=== PATIENT | female | born 1940 | race Caucasian/White ===

== ENCOUNTER → 2016-07-22 | Outpatient (CLI) | payer BC ==
[~2016-07-22] MED LIST: ATOR-22 PO; CHOL100010 PO; IBAN150T PO; KETO2CRE14; LEVO75TA PO; MONT1TAB3 PO; OMEP20CA59 PO; PROP1SOL OPB; VENL75CA PO
[2016-07-24 14:18] LABS: HERPES SIMPLEX CULT SOURCE GENITAL-VULVA; HERPES SIMPLEX VIRUS CULT ISOLATED (NOT ISOLATED)
[2016-07-24 16:47] LABS: HSVTYPE2REFLEX ONLY!DON'T ORDR ISOLATED (NOT ISOLATED)
== END | disposition home or self-care (01) ==
LOC: C.LABSPEC 13:32
PROVIDERS: ATTEND Obstetrics & Gynecology
DX: N89.8 Other specified noninflammatory disorders of vagina (principal)

== ENCOUNTER → 2016-07-22 | Outpatient (CLI) | payer BC ==
--- NOTE | 2016-07-22 13:18 | DIAGNOSTIC IMAGING REPORT ---
KUB CLINICAL HISTORY: Nephrolithiasis. FINDINGS: An AP supine abdominal radiograph is compared to study dated 06/02/2016 and correlated with abdominal CT dated 05/28/2015. There is a nonobstructed abdominal bowel gas pattern. 2 nonobstructing calculi are again seen projecting over the left kidney and measure up to 8 mm. No calcifications are seen projecting over the right kidney or along the course of the ureters. Numerous phleboliths along the course of the right gonadal vein and in the pelvis are similar to previous. The Skeletal structures are osteopenic. Lumbosacral spondylosis and scoliosis is noted. IMPRESSION: 1. Nonobstructing left renal calculi are similar to previous. 2. No calcifications are seen projecting over the right kidney or along the course of the ureters. 3. Additional changes as above. Electronically signed by: Ruben Johnson M.D. 07/22/2016 1:16 PM Dictated Date/Time: 07/22/2016 1:15 PM
== END | disposition home or self-care (01) ==
LOC: C.RAD 12:30
PROVIDERS: ATTEND Urology
DX: N20.0 Calculus of kidney (principal); N89.8 Other specified noninflammatory disorders of vagina

== ENCOUNTER → 2016-10-22 | Outpatient (CLI) | payer BC ==
--- NOTE | 2016-10-22 15:37 | MAMMOGRAPHY REPORT ---
BILATERAL DIGITAL SCREENING MAMMOGRAM WITH CAD: 10/22/2016 CLINICAL HISTORY: Routine screening. Patient has no complaints. TECHNIQUE: Current study was also evaluated with a Computer Aided Detection (CAD) system. Bilatera l CC and MLO views were obtained. COMPARISON: Comparison is made to exams dated: 10/23/2015 mammogram, 10/29/2014 ultrasound, 10/29/2014 mammogram, 10/19/2014 mammogram, 10/18/2013 mammogram, and 10/11/2012 mammogram - [facility]. BREAST COMPOSITION: There are scattered areas of fibroglandular density in both breasts. FINDINGS: No suspicious masses, calcifications, or areas of architectural distortion are noted in e ither breast. There has been no significant interval change compared to prior exams. IMPRESSION: ACR BI-RADS CATEGORY 1: NEGATIVE There is no mammographic evidence of malignancy. A 1 year screening mammogram is recommended. The p atient will receive written notification of the results. Approximately 10% of breast cancers are not detected with mammography. A negative mammographic repor t should not delay biopsy if a clinically suggestive mass is present. Che Bansal M.D. ah/:10/22/2016 13:45:00 Mandrel Cleaner: Areli MANLEY(Tommie)(M), [facility] letter sent: Normal 1/2 BI-RADS Code: ACR BI-RADS Category 1: Negative
== END | disposition home or self-care (01) ==
LOC: C.MAMM 10:35
PROVIDERS: ATTEND Obstetrics & Gynecology
DX: Z12.31 Encounter for screening mammogram for malignant neoplasm of breast (principal)

== ENCOUNTER → 2016-11-04 | Outpatient (CLI) | payer BC ==
[2016-11-04 11:55] LABS: BASO % 0.9 %; BASO ABS # 0.04 K/uL (0-0.2); COMPLETE YES; EOS % 3.5 %; HEMATOCRIT 44.2 % (37-47); LYMPH % 33.6 %; LYMPH ABS # 1.53 K/uL (1.2-3.4); MEAN CORPUSCULAR HEMOGLOBIN 31.1 pg (25-34); MEAN PLATELET VOLUME 11.2 fL (7.4-10.4); PLATELET COUNT 263 K/uL (130-400); WHITE BLOOD COUNT 4.56 K/uL (4.8-10.8)
[2016-11-04 12:01] LABS: URINE APPEARANCE CLEAR (CLEAR); URINE BILIRUBIN NEG (NEG); URINE COLOR YELLOW; URINE NITRITE NEG (NEG); URINE PH 6.5 (4.5-7.5); URINE SPECIFIC GRAVITY 1.017 (1.000-1.030); UROBILINOGEN NEG (NEG)
[2016-11-04 12:02] LABS: MANUAL MICROSCOPIC REQUIRED? NO; REVIEW REQ? YES
[2016-11-04 12:24] LABS: ALT/SGPT 27 U/L (12-78); BLOOD UREA NITROGEN 27 mg/dl (7-18); BUN/CREATININE RATIO 29.8 (10-20); CARBON DIOXIDE 30 mmol/L (21-32); CHLORIDE 108 mmol/L (98-107); CHOLESTEROL 216 mg/dl (0-200); CREATININE 0.89 mg/dl (0.60-1.20); GLUCOSE 92 mg/dl (70-99); POTASSIUM 4.1 mmol/L (3.5-5.1); SODIUM 143 mmol/L (136-145); TRIGLYCERIDES 76 mg/dl (0-150); VERY LOW DENSITY LIPOPROT CALC 15 mg/dl
[2016-11-04 12:34] LABS: ALKALINE PHOSPHATASE 100 U/L (45-117); AST/SGOT 22 U/L (15-37); CALCIUM 9.6 mg/dl (8.5-10.1); CHOLESTEROL/HDL RATIO 2.7; HDL CHOLESTEROL 79 mg/dl; LDL CHOLESTEROL CALCULATED 122 mg/dl; THYROID STIMULATING HORMONE 0.443 uIu/ml (0.300-4.500)
== END | disposition home or self-care (01) ==
LOC: C.LAB1850 10:06
PROVIDERS: ATTEND Internal Medicine Pulmonary Disease
DX: F32.9 Major depressive disorder, single episode, unspecified (principal); E78.5 Hyperlipidemia, unspecified; E03.9 Hypothyroidism, unspecified; R29.898 Other symptoms and signs involving the musculoskeletal system; J45.909 Unspecified asthma, uncomplicated; R26.0 Ataxic gait

== ENCOUNTER → 2017-05-11 | Outpatient (CLI) | payer BC ==
[2017-05-11 15:06] LABS: ALT/SGPT 30 U/L (12-78); BLOOD UREA NITROGEN 18 mg/dl (7-18); BUN/CREATININE RATIO 19.6 (10-20); CALCIUM 9.7 mg/dl (8.5-10.1); CARBON DIOXIDE 29 mmol/L (21-32); CHLORIDE 106 mmol/L (98-107); CHOLESTEROL 188 mg/dl (0-200); CREATININE 0.93 mg/dl (0.60-1.20); GLUCOSE 78 mg/dl (70-99); POTASSIUM 4.2 mmol/L (3.5-5.1); SODIUM 141 mmol/L (136-145); TRIGLYCERIDES 83 mg/dl (0-150); VERY LOW DENSITY LIPOPROT CALC 17 mg/dl
[2017-05-11 15:09] LABS: ALB/GLOB RATIO 1.2 (0.9-2); ALKALINE PHOSPHATASE 106 U/L (45-117); AST/SGOT 22 U/L (15-37); CHOLESTEROL/HDL RATIO 2.4; HDL CHOLESTEROL 79 mg/dl; LDL CHOLESTEROL CALCULATED 92 mg/dl
== END | disposition home or self-care (01) ==
LOC: C.LAB1850 13:23
PROVIDERS: ATTEND Internal Medicine Pulmonary Disease
DX: M41.9 Scoliosis, unspecified (principal); F32.9 Major depressive disorder, single episode, unspecified; E78.5 Hyperlipidemia, unspecified; E03.9 Hypothyroidism, unspecified; J98.4 Other disorders of lung; K21.9 Gastro-esophageal reflux disease without esophagitis; J45.909 Unspecified asthma, uncomplicated

== ENCOUNTER → 2017-06-01 | Outpatient (CLI) | payer BC ==
--- NOTE | 2017-06-01 11:28 | DIAGNOSTIC IMAGING REPORT ---
KUB CLINICAL HISTORY: 76 years-old Female presenting with N20.0 [id number]. TECHNIQUE: Single supine view of the abdomen was obtained. COMPARISON: 07/22/2016. FINDINGS: Mild stool burden noted in the right colon. Scattered bowel gas noted in small and large bowel without evidence of obstruction. No gross pneumoperitoneum. Allowing for bowel gas and stool, left renal calculi again noted. Prominent phlebolith again seen in the right mid abdomen. Numerous pelvic phleboliths similar in distribution to prior exam. Atherosclerosis also noted. S-shaped scoliotic curvature of the thoracolumbar spine. Osteopenia may be present. Lung bases clear. IMPRESSION: 1. Left nephrolithiasis. No radiographic evidence of right nephrolithiasis or ureteral calculi. No change from the prior exam. Electronically signed by: Randy Gilmore M.D. 06/01/2017 11:27 AM Dictated Date/Time: 06/01/2017 11:24 AM
== END | disposition home or self-care (01) ==
LOC: C.RAD 10:59
PROVIDERS: ATTEND Urology
DX: N20.0 Calculus of kidney (principal)

== ENCOUNTER → 2017-10-19 | Outpatient (CLI) | payer BC ==
[2017-10-19 14:39] LABS: BASO % 0.6 %; BASO ABS # 0.04 K/uL (0-0.2); EOS % 2.4 %; EOS ABS # 0.16 K/uL (0-0.5); HEMATOCRIT 43.5 % (37-47); HEMOGLOBIN 14.8 g/dL (12.0-16.0); IG# 0.01 K/uL (0.00-0.02); LYMPH ABS # 2.09 K/uL (1.2-3.4); MEAN CELL VOLUME 92.2 fL (80-100); MEAN CORPUSCULAR HEMOGLOBIN 31.4 pg (25-34); MEAN PLATELET VOLUME 11.7 fL (7.4-10.4); MONO % 10.2 %; MONO ABS # 0.67 K/uL (0.11-0.59); NEUT % 54.6 %; NEUT ABS # 3.57 K/uL (1.4-6.5); PLATELET COUNT 252 K/uL (130-400); RED CELL DISTRIBUTION WIDTH CV 12.9 % (11.5-14.5); RED CELL DISTRIBUTION WIDTH SD 43.7 fL (36.4-46.3); WHITE BLOOD COUNT 6.54 K/uL (4.8-10.8)
[2017-10-19 15:05] LABS: ALBUMIN 3.8 gm/dl (3.4-5.0); ALT/SGPT 25 U/L (12-78); AST/SGOT 21 U/L (15-37); BLOOD UREA NITROGEN 19 mg/dl (7-18); CALCIUM 9.4 mg/dl (8.5-10.1); CARBON DIOXIDE 30 mmol/L (21-32); CHOLESTEROL 174 mg/dl (0-200); GLUCOSE 78 mg/dl (70-99); POTASSIUM 4.2 mmol/L (3.5-5.1); SODIUM 142 mmol/L (136-145)
[2017-10-19 15:15] LABS: ALKALINE PHOSPHATASE 106 U/L (45-117); LDL CHOLESTEROL CALCULATED 81 mg/dl; TOTAL PROTEIN 6.9 gm/dl (6.4-8.2)
== END | disposition home or self-care (01) ==
LOC: C.LAB1850 13:20
PROVIDERS: ATTEND Internal Medicine Pulmonary Disease
DX: M41.9 Scoliosis, unspecified (principal); E78.5 Hyperlipidemia, unspecified; E03.9 Hypothyroidism, unspecified; J98.4 Other disorders of lung; J45.909 Unspecified asthma, uncomplicated; K21.9 Gastro-esophageal reflux disease without esophagitis

== ENCOUNTER → 2017-10-28 | Outpatient (CLI) | payer BC | END | disposition home or self-care (01) | LOC: C.MAMM 13:58 | PROVIDERS: ATTEND Obstetrics & Gynecology | DX: M85.89 Other specified disorders of bone density and structure, multiple sites (principal); M81.0 Age-related osteoporosis without current pathological fracture ==

== ENCOUNTER 2019-01-15 17:11 | Inpatient (IN) ==
[2019-01-15] MEDS ORDERED: ACETAMINOPHEN 1,000 MG/100 ML VIAL IV STA (17:33)
[2019-01-15] MEDS ORDERED: SODIUM CHLORIDE 0.9% 1000ML 1,000 ML IV SCH (17:45)
--- NOTE | 2019-01-15 18:19 | XRay Report ---
SINGLE VIEW CHEST CLINICAL HISTORY: Sepsis. FINDINGS: An AP, portable, upright chest radiograph is compared to study dated 10/10/2018 and correlat ed with chest CT dated 07/08/2018. The examination is degraded by portable technique and patient rotat ion. The heart is top normal for projection noting atherosclerotic calcification of the thoracic aor ta. There is bibasilar consolidation, right greater than left. Small pleural effusions are noted. No pneumothorax is seen. The skeletal structures are osteopenic. Degenerative change and scoliosis are n oted in the thoracic spine. Spinal rods are in place. IMPRESSION: 1. There is bibasilar consolidation, right greater than left. The appearance is typical for pneumonia /aspiration pneumonitis. Clinical correlation will be required and radiographic follow-up to resoluti on is recommended. 2. Small pleural effusions. Electronically signed by: Ruben Johnson M.D. 01/15/2019 6:18 PM
[2019-01-15 18:22] LABS: Basophils # (auto) 0.01 K/uL (0-0.2); Basophils % (auto) 0.1 %; Eosinophils # (auto) 0.01 K/uL (0-0.5); Eosinophils % (auto) 0.1 %; Hemoglobin 14.1 g/dL (12.0-16.0); Immature Granulocytes # (auto) 0.05 K/uL (0.00-0.02); Immature Granulocytes % (auto) 0.4 %; Lymphocytes # (auto) 1.44 K/uL (1.2-3.4); Lymphocytes % (auto) 10.8 %; Mean Corpuscular Hgb Conc 34.4 g/dL (32-36); Mean Corpuscular Volume 91.7 fL (80-100); Mean Platelet Volume 11.5 fL (7.4-10.4); Monocytes % (auto) 12.8 %; Neutrophils # (auto) 10.08 K/uL (1.4-6.5); Neutrophils % (auto) 75.8 %; Platelet Count 183 K/uL (130-400); RDW Coefficient of Variation 13.1 % (11.5-14.5); RDW Standard Deviation 43.7 fL (36.4-46.3); Red Blood Count 4.47 M/uL (4.2-5.4); White Blood Count 13.29 K/uL (4.8-10.8)
[2019-01-15 18:34] LABS: INR 1.2 (0.9-1.1); Partial Thromboplastin Ratio 1.2; Partial Thromboplastin Time 31.6 Seconds (21.0-31.0); Prothrombin Time 11.9 Seconds (9.0-12.0)
[2019-01-15 18:39] LABS: BUN Creatinine Ratio 20.3 (10-20); Calcium 9.3 mg/dl (8.5-10.1); Creatinine Clr Calc Pharmacy 57.2 ml/min; Est GFR (African American) 72.5; Est GFR (Non-African American) 62.5; Potassium 3.7 mmol/L (3.5-5.1)
[2019-01-15 18:41] LABS: Albumin Globulin Ratio 0.8 (0.9-2); Bilirubin,Total 1.8 mg/dl (0.2-1); Globulin 3.7 gm/dl (2.5-4.0); Total Protein 6.7 gm/dl (6.4-8.2)
[2019-01-15 18:41] LABS: Appearance Urine Cloudy (Clear); Bacteria Urine Automated 3+ (Negative); Color Urine Orange; Glucose Urine UA Negative (Negative); Ketones Urine 1+ (Negative); Leukocyte Esterase Urine 2+ (Negative); Nitrite Urine Positive (Negative); Protein Urine 1+ (Negative); Specific Gravity Urine 1.025 (1.000-1.030); Urobilinogen Urine Negative (Negative); WBC Urine Automated >30 /hpf (0-5)
[2019-01-15] MEDS ORDERED: PIPERACILLIN/TAZOBACTAM 4.5 GM/120 ML BAG IV ONE (18:41)
[2019-01-15 18:51] LABS: Bilirubin Urine Negative (Negative); Ictotest Urine Negative (Negative)
[2019-01-15 19:05] LABS: Influenza A virus by PCR Neg for Influ A (Neg); Influenza B virus by PCR Neg for Influ B (Neg)
[2019-01-15 19:05] LABS: Mucus Urine Present (None Prsent)
--- NOTE | 2019-01-15 19:39 | Emergency Department Note ---
Entered by Elkin Sunshine acting as a scribe for Pasha Sepulveda History of Present Illness General Chief complaint: Flu Like Symptoms Stated complaint: [id number] NECK Time Seen by Provider: 01/15/19 17:27 Source: patient and family History of Present Illness Provider complaint: Flu like symptoms Onset (ago): day(s) 1 Location: head Pain Consistency: + constant Maximum Pain Intensity: 0 Relieved By: + none Exacerbated By: + none Associated symptoms: + confusion, + fever/chills and + other (Positive sore throat ) History is limited due to the patient's cognitive status.The patient is a 78 year old female who presents to the Emergency Room with complaints of constant flu like symptoms that started last night, per her . He states that her symptoms started with a sore throat, cough, myalgias, and he noticed she felt feverish as well. The patient does not have a thermometer at home but upon arrival her temperature was 102.2F. The reports that she has been confused and disoriented since the onset of her symptoms. Currently the patient knows where she is, but does not remember the year. The states she has no history of dementia. He also mentioned that she has been complaining of right sided neck pain also. The patient is not on any blood thinners. Home Medications Home Medications Medication Instructions Recorded Confirmed Type Systane Balance 1 drp OPB QID PRN 11/10/18 01/15/19 History amoxicillin 2,000 mg PO DIRECTED PRN 11/10/18 01/15/19 History atorvastatin 10 mg PO HS 11/10/18 01/15/19 History ketoconazole 1 applic TOPICAL Q3D PRN 11/10/18 01/15/19 History levothyroxine 75 mcg PO QAM 11/10/18 01/15/19 History montelukast [Singulair] 10 mg PO HS 11/10/18 01/15/19 History venlafaxine [Effexor XR] 75 mg PO QDL 11/10/18 01/15/19 History cholecalciferol (vitamin D3) 1,000 unit PO QDL 01/15/19 01/15/19 History [Vitamin D3] clobetasol 1 applic TOPICAL .HS/WEEKLY 01/15/19 01/15/19 History omeprazole 20 mg PO DAILYBL 01/15/19 01/15/19 History Allergies Allergy/AdvReac Type Severity Reaction Status Date / Time doxycycline Allergy Mild itchy;red Verified 01/15/19 17:39 skin estrogens, conjugated Allergy Mild RASH Verified 01/15/19 17:39 perfume Allergy Mild Sneezing Verified 01/15/19 17:39 pollen extracts Allergy Mild Sneezing Verified 01/15/19 17:39 Sulfa (Sulfonamide Allergy Mild RASH Verified 01/15/19 17:39 Antibiotics) adhesive AdvReac Mild skin Verified 01/15/19 17:39 irritation INHALERS Allergy Intermediate THRUSH IN Uncoded 01/15/19 17:39 MOUTH Past Med/Surg History Medical History Asthma NO INHALER CURRENTLY Cancer LEFT UPPER ARM (SKIN CANCER) Depression Environmental allergies GERD (gastroesophageal reflux disease) Hyperlipidemia Hypothyroidism Kidney stones Osteoarthritis Scoliosis Temporomandibular joint disorder Surgical History Fusion of spine LUMBAR History of cataract surgery LEFT/RT History of colonoscopy History of herniorrhaphy RT/LEFT INGUINAL History of tooth extraction Family History Uncle Family history of diabetes mellitus Social History Preferred Language: Yemeni Communication Ability: Effective Beliefs That Will Affect Care: None Current Living Situation: Spouse Feels Safe at Home: Yes Smoking Status: Never smoker Second Hand Exposure: No Hx Alcohol Use: Yes Alcohol type: wine Hx Substance Use: No Review of Systems Unobtainable due to cognitive status Physical Exam Vital Signs Vital Signs - 24 hr 01/15/19 17:16 01/15/19 17:21 01/15/19 17:42 Temperature 39 C H Temperature Source Oral Oral Sepsis Recent Fever Within 48 Hours Yes Sepsis New/Unexplained Change in Mental Status Yes Sepsis Action Taken by Nursing No Action Required Pulse Rate 111 H Pulse Rate [Apical] Respiratory Rate 20 Respiratory Effort / Characteristics Non-Labored Respiratory Depth Normal Blood Pressure 133/68 Blood Pressure [Right Arm] Blood Pressure Mean 89 Blood Pressure Mean [Right Arm] Blood Pressure Position Sitting Pulse Oximetry 94 94 Oxygen Delivery Method Room Air Room Air Oxygen Flow Rate 01/15/19 17:44 01/15/19 18:56 01/15/19 19:00 Temperature 37.1 C Temperature Source Oral Sepsis Recent Fever Within 48 Hours Sepsis New/Unexplained Change in Mental Status Sepsis Action Taken by Nursing Pulse Rate Pulse Rate [Apical] 102 H 83 Respiratory Rate 15 18 Respiratory Effort / Characteristics Respiratory Depth Blood Pressure Blood Pressure [Right Arm] 152/69 H 127/63 Blood Pressure Mean Blood Pressure Mean [Right Arm] 96 84 Blood Pressure Position Pulse Oximetry 95 89 L 95 Oxygen Delivery Method Room Air Nasal Cannula Oxygen Flow Rate 2.5 GENERAL: Distressed. HENT: Exam performed. Head: Normocephalic and atraumatic. Right Ear: External ear normal. No mastoid tenderness. Left Ear: External ear normal. No mastoid tenderness. Mouth/Throat: Dry mucous membranes. EYES: Conjunctivae and EOM are normal. Pupils are equal, round, and reactive to light. Right eye exhibits no discharge. Left eye exhibits no discharge. No scleral icterus. NECK: Normal range of motion. Neck supple. No JVD present. No spinous process tenderness present. No carotid bruit present. No rigidity. No tracheal deviation and normal range of motion present. No Brudzinski's sign and no Kernig's sign noted. CV: Tachycardic rate, regular rhythm, normal heart sounds and intact distal pulses. There is no peripheral edema. Palpable radial pulses bue. PULM/CHEST: Rhonchi bilaterally. Chest Wall: She exhibits no tenderness. ABD: The abdomen is soft. MUSC/SKEL: Normal range of motion. There is no peripheral edema, tenderness or deformity. LYMPH: No cervical adenopathy. NEURO: She is alert and oriented x1. Motor and sensation are grossly intact. SKIN: Skin is warm and dry. She is not diaphoretic. Course 1728: Past medical records reviewed. The patient was evaluated in room A02, and a complete history and physical examination were performed. The patient was seen immediately and a code sepsis was called. Large bore IV access was obtained. 184: Vital signs are stable. Labs show a Leukocytosis of 13.2. Her chest X-ray shows bibasilar consolidation typical for pneumonia/aspiration pneumonitis. The patient will be admitted and given Zosyn. I discussed this plan with Dr. Patricio and she agreed. I spoke to Dr. Patricio - [facility] Hospitalist about the patient's case and she will be accepting her for further evaluation. Consultations Consultation #1: I spoke to Dr. Patricio - [facility] Hospitalist about the patient's case and she will be accepting her for further evaluation. Time: 18:42 Administered Medications Piperacillin Sod/Tazobactam Sod (Zosyn) 4.5 gm in 120 mls @ 30 mls/hr IV NOW ONE Stop: 01/15/19 22:40 Last Admin: 01/15/19 18:49 Dose: 30 mls/hr Documented by: [id number] Discontinued Medications Acetaminophen (Ofirmev) 1,000 mg in 100 mls @ 400 mls/hr IV NOW STA Stop: 01/15/19 17:47 Last Infusion: 01/15/19 18:24 Dose: 0 mls/hr Documented by: [id number] Admin: 01/15/19 17:38 Dose: 400 mls/hr Documented by: [id number] Sodium Chloride (Nss 1000ml) 1,000 mls @ 999 mls/hr IV .Q1H1M JASMYNE Stop: 01/15/19 18:45 Last Admin: 01/15/19 17:38 Dose: 999 mls/hr Documented by: [id number] Medical Decision Making Medical Records Attestation: I reviewed the patient's medical records. Home Medications Current Medication List: was personally reviewed by me Laboratory Data Attestation: I reviewed the patient's lab results. Result diagrams: 01/15/19 18:06 01/15/19 18:06 Lab Results 01/15/19 01/15/19 01/15/19 Range/Units 18:06 18:06 18:06 WBC 13.29 H (4.8-10.8) K/uL RBC 4.47 (4.2-5.4) M/uL Hgb 14.1 (12.0-16.0) g/dL Hct 41.0 (37-47) % MCV 91.7 (80-100) fL MCH 31.5 (25-34) pg MCHC 34.4 (32-36) g/dL RDW Std Deviation 43.7 (36.4-46.3) fL RDW Coeff of David 13.1 (11.5-14.5) % Plt Count 183 (130-400) K/uL MPV 11.5 H (7.4-10.4) fL Immature Gran % (Auto) 0.4 % Neut % (Auto) 75.8 % Lymph % (Auto) 10.8 % [place] % (Auto) 12.8 % Eos % (Auto) 0.1 % Baso % (Auto) 0.1 % Immature Gran # (Auto) 0.05 H (0.00-0.02) K/uL Neut # (Auto) 10.08 H (1.4-6.5) K/uL Lymph # (Auto) 1.44 (1.2-3.4) K/uL [place] # (Auto) 1.70 H (0.11-0.59) K/uL Eos # (Auto) 0.01 (0-0.5) K/uL Baso # (Auto) 0.01 (0-0.2) K/uL PT 11.9 (9.0-12.0) Seconds INR 1.2 H (0.9-1.1) APTT 31.6 H (21.0-31.0) Seconds PTT Ratio 1.2 Sodium 139 (136-145) mmol/L Potassium 3.7 (3.5-5.1) mmol/L Chloride 106 (98-107) mmol/L Carbon Dioxide 22 (21-32) mmol/L Anion Gap 11.0 (3-11) BUN 18 (7-18) mg/dl Creatinine 0.89 (0.6-1.2) mg/dl Est Cr Clr Drug Dosing 57.2 ml/min Est GFR ( Amer) 72.5 Est GFR (Non-Af Amer) 62.5 BUN/Creatinine Ratio 20.3 H (10-20) Glucose 97 (70-99) mg/dl Lactate (0.4-2.0) mmol/L Calcium 9.3 (8.5-10.1) mg/dl Total Bilirubin 1.8 H (0.2-1) mg/dl AST 29 (15-37) U/L ALT 39 (12-78) U/L Alkaline Phosphatase 106 (45-117) U/L Total Protein 6.7 (6.4-8.2) gm/dl Albumin 3.0 L (3.4-5.0) gm/dl Globulin 3.7 (2.5-4.0) gm/dl Albumin/Globulin Ratio 0.8 L (0.9-2) Urine Color Urine Appearance (Clear) Urine pH (4.5-7.5) Ur Specific [place] (1.000-1.030) Urine Protein (Negative) Urine Glucose (UA) (Negative) Urine Ketones (Negative) Urine Blood (Negative) Urine Nitrite (Negative) Urine Bilirubin (Negative) Urine Urobilinogen (Negative) Ur Leukocyte Esterase (Negative) Urine WBC (Auto) (0-5) /hpf Urine RBC (Auto) (0-4) /hpf U Hyaline Cast (Auto) (0-5) /lpf U Epithel Cells (Auto) (0-5) /lpf Urine Bacteria (Auto) (Negative) Granular Casts (0) /lpf Urine Mucus (None Prsent) Influenza Type A (PCR) (Neg) Influenza Type B (PCR) (Neg) 01/15/19 01/15/19 01/15/19 Range/Units 18:06 18:15 18:26 WBC (4.8-10.8) K/uL RBC (4.2-5.4) M/uL Hgb (12.0-16.0) g/dL Hct (37-47) % MCV (80-100) fL MCH (25-34) pg MCHC (32-36) g/dL RDW Std Deviation (36.4-46.3) fL RDW Coeff of David (11.5-14.5) % Plt Count (130-400) K/uL MPV (7.4-10.4) fL Immature Gran % (Auto) % Neut % (Auto) % Lymph % (Auto) % [place] % (Auto) % Eos % (Auto) % Baso % (Auto) % Immature Gran # (Auto) (0.00-0.02) K/uL Neut # (Auto) (1.4-6.5) K/uL Lymph # (Auto) (1.2-3.4) K/uL [place] # (Auto) (0.11-0.59) K/uL Eos # (Auto) (0-0.5) K/uL Baso # (Auto) (0-0.2) K/uL PT (9.0-12.0) Seconds INR (0.9-1.1) APTT (21.0-31.0) Seconds PTT Ratio Sodium (136-145) mmol/L Potassium (3.5-5.1) mmol/L Chloride (98-107) mmol/L Carbon Dioxide (21-32) mmol/L Anion Gap (3-11) BUN (7-18) mg/dl Creatinine (0.6-1.2) mg/dl Est Cr Clr Drug Dosing ml/min Est GFR ( Amer) Est GFR (Non-Af Amer) BUN/Creatinine Ratio (10-20) Glucose (70-99) mg/dl Lactate 1.1 (0.4-2.0) mmol/L Calcium (8.5-10.1) mg/dl Total Bilirubin (0.2-1) mg/dl AST (15-37) U/L ALT (12-78) U/L Alkaline Phosphatase (45-117) U/L Total Protein (6.4-8.2) gm/dl Albumin (3.4-5.0) gm/dl Globulin (2.5-4.0) gm/dl Albumin/Globulin Ratio (0.9-2) Urine Color [place] Urine Appearance Cloudy A (Clear) Urine pH 5.0 (4.5-7.5) Ur Specific [place] 1.025 (1.000-1.030) Urine Protein 1+ H (Negative) Urine Glucose (UA) Negative (Negative) Urine Ketones 1+ H (Negative) Urine Blood Trace H (Negative) Urine Nitrite Positive A (Negative) Urine Bilirubin Negative (Negative) Urine Urobilinogen Negative (Negative) Ur Leukocyte Esterase 2+ H (Negative) Urine WBC (Auto) >30 H (0-5) /hpf Urine RBC (Auto) 0-4 (0-4) /hpf U Hyaline Cast (Auto) 1-5 (0-5) /lpf U Epithel Cells (Auto) 5-10 H (0-5) /lpf Urine Bacteria (Auto) 3+ H (Negative) Granular Casts 1-5 H (0) /lpf Urine Mucus Present A (None Prsent) Influenza Type A (PCR) Neg for Influ A (Neg) Influenza Type B (PCR) Neg for Influ B (Neg) Imaging Data Radiologist's Impression: Radiology results as stated below per my review and the radiologist's interpretation: SINGLE VIEW CHEST CLINICAL HISTORY: Sepsis. FINDINGS: An AP, portable, upright chest radiograph is compared to study dated 10/10/2018 and correlated with chest CT dated 07/08/2018. The examination is degraded by portable technique and patient rotation. The heart is top normal for projection noting atherosclerotic calcification of the thoracic aorta. There is bibasilar consolidation, right greater than left. Small pleural effusions are noted. No pneumothorax is seen. The skeletal structures are osteopenic. Degenerative change and scoliosis are noted in the thoracic spine. Spinal rods are in place. IMPRESSION: 1. There is bibasilar consolidation, right greater than left. The appearance is typical for pneumonia/aspiration pneumonitis. Clinical correlation will be required and radiographic follow-up to resolution is recommended. 2. Small pleural effusions. Electronically signed by: Ruben Johnson M.D. 01/15/2019 6:18 PM Blood Pressure Blood Pressure Findings: Elevated blood pressure Blood Pressure Disposition: further management by hospitalist [facility] Narrative Vital signs are stable. Labs show a Leukocytosis of 13.2. Her chest X-ray shows bibasilar consolidation typical for pneumonia/aspiration pneumonitis. The patient will be admitted and given Zosyn. I discussed this plan with Dr. Patricio and she agreed. I spoke to Dr. Patricio - [facility] Hospitalist about the patient's case and she will be accepting her for further evaluation. Impression & Plan Sepsis, Pneumonia, Acute UTI, Infectious encephalopathy Critical Care Time Critical Care Time: Yes Total Critical Care Time: 70 I have personally spent greater than 70 minutes of critical care time in the direct management of this patient. This includes bedside care, interpretation of diagnostic studies, and testing, discussion with consultants, patient, and family members, and other required patient management activities. This 70 minutes is in excess of all separately billable procedures. Discharge Plan Visit Data Chief Complaint: Flu Like Symptoms Stated Complaint: [id number] NECK ED Provider: Pasha Sepulveda Discharge Problem: Sepsis, Pneumonia, Acute UTI, Infectious encephalopathy Forms Stand Alone Forms: My [facility] Prescriptions Prescriptions: No Action venlafaxine [Effexor XR] 75 mg Capsule,Extended Release 24hr 75 mg PO QDL RF: 0 atorvastatin 10 mg Tablet 10 mg PO HS RF: 0 amoxicillin 500 mg Tablet 2,000 mg PO DIRECTED PRN (Reason: DENTAL PROCEDURE) RF: 0 levothyroxine 75 mcg Tablet 75 mcg PO QAM RF: 0 montelukast [Singulair] 10 mg Tablet 10 mg PO HS RF: 0 Systane Balance 0.6 % Drops 1 drp OPB QID PRN (Reason: EYE DRYNESS) RF: 0 ketoconazole 1 % Shampoo 1 applic TOPICAL Q3D PRN (Reason: SCALP ITCHING) RF: 0 clobetasol 0.05 % Cream 1 applic TOPICAL .HS/WEEKLY RF: 0 cholecalciferol (vitamin D3) [Vitamin D3] 1,000 unit Capsule 1,000 unit PO QDL RF: 0 omeprazole 20 mg Tablet,Delayed Release (Dr/Ec) 20 mg PO DAILYBL RF: 0 Referrals Referrals: Florian Dobbins MD [Primary Care Provider] - Discharge Problem: Sepsis Qualifiers: Sepsis type: sepsis due to unspecified organism Qualified Code(s): A41.9 - Sepsis, unspecified organism Pneumonia Qualifiers: Pneumonia type: due to unspecified organism Laterality: bilateral Lung location: lower lobe of lung Qualified Code(s): J18.1 - Lobar pneumonia, unspecified organism The scribe's documentation has been prepared under my direction and personally reviewed by me in its entirety. I confirm that the note above accurately reflects all work, treatment, procedures, and medical decision making performed by me.
--- NOTE | 2019-01-15 20:28 | History & Physical Report ---
Date of Service January 15, 2019 Assessment & Plan (1) Sepsis: Sepsis/encephalopathy secondary to infection, pneumonia and UTI- IV fluids. Zosyn IV as documented below. Monitor on telemetry. Present on Admission?: Yes (2) Infectious encephalopathy: See above Present on Admission?: Yes (3) Pneumonia: X-ray questions the possibility of aspiration. Patient and both report no suggestion of aspiration of food contents. We will place patient on aspiration precautions for now. Zosyn 4.5 g IV every 8 hours. DuoNeb's 4 times daily and every 2 hours as needed. Pulmicort Respules 0.5 mg inhaled twice daily. Guaifenesin extended release 600 mg p.o. twice daily. Nasal cannula, titrate to keep pulse ox around 95%. Present on Admission?: Yes (4) Acute UTI: Follow urine culture and sensitivity. IV fluids, normal saline + KCl 20 mEq at 100 mils per hour. Zosyn as above. Present on Admission?: Yes (5) Hyperlipidemia: Continue atorvastatin 10 mg at bedtime. Present on Admission?: Yes (6) Hypothyroidism (acquired): Continue levothyroxine sodium 75 mcg every morning Present on Admission?: Yes (7) GERD (gastroesophageal reflux disease): Continue omeprazole or pantoprazole. Present on Admission?: Yes (8) Anxiety with depression: Continue venlafaxine XR 75 mg daily Present on Admission?: Yes (9) DDD (degenerative disc disease), thoracolumbar: History of pablo placement. Limited mobility and flexibility. Present on Admission?: Yes History of Present Illness Chief Complaint: The patient presents to the emergency department with flulike symptoms, confusion, fevers and chills that began the previous evening, about 24 hours ago. Primary Care Provider: Florian Dobbins MD The patient is a 78-year-old female with a past medical history including asthma, hyperlipidemia, hypothyroidism, GERD, thoracolumbar pablo placement, and anxiety/depression, who presents to the emergency department with 24 hours of flulike symptoms including confusion, fevers and chills, cough and generalized myalgias. Her is with her and helps to supply her history. She has not had any recent travels or sick exposures. She has had decreased oral intake over the past 24 hours. Allergies Allergy/AdvReac Type Severity Reaction Status Date / Time doxycycline Allergy Mild itchy;red Verified 01/15/19 17:39 skin estrogens, conjugated Allergy Mild RASH Verified 01/15/19 17:39 perfume Allergy Mild Sneezing Verified 01/15/19 17:39 pollen extracts Allergy Mild Sneezing Verified 01/15/19 17:39 Sulfa (Sulfonamide Allergy Mild RASH Verified 01/15/19 17:39 Antibiotics) adhesive AdvReac Mild skin Verified 01/15/19 17:39 irritation INHALERS Allergy Intermediate THRUSH IN Uncoded 01/15/19 17:39 MOUTH Home Medications Home Medications Medication Instructions Recorded Confirmed Type Systane Balance 1 drp OPB QID PRN 11/10/18 01/15/19 History amoxicillin 2,000 mg PO DIRECTED PRN 11/10/18 01/15/19 History atorvastatin 10 mg PO HS 11/10/18 01/15/19 History ketoconazole 1 applic TOPICAL Q3D PRN 11/10/18 01/15/19 History levothyroxine 75 mcg PO QAM 11/10/18 01/15/19 History montelukast [Singulair] 10 mg PO HS 11/10/18 01/15/19 History venlafaxine [Effexor XR] 75 mg PO QDL 11/10/18 01/15/19 History cholecalciferol (vitamin D3) 1,000 unit PO QDL 01/15/19 01/15/19 History [Vitamin D3] clobetasol 1 applic TOPICAL .HS/WEEKLY 01/15/19 01/15/19 History omeprazole 20 mg PO DAILYBL 01/15/19 01/15/19 History Past Med/Surg History Medical History Asthma NO INHALER CURRENTLY Cancer LEFT UPPER ARM (SKIN CANCER) Depression Environmental allergies GERD (gastroesophageal reflux disease) Hyperlipidemia Hypothyroidism Kidney stones Osteoarthritis Scoliosis Temporomandibular joint disorder Surgical History Fusion of spine LUMBAR History of cataract surgery LEFT/RT History of colonoscopy History of herniorrhaphy RT/LEFT INGUINAL History of tooth extraction Family History Uncle Family history of diabetes mellitus Social History Preferred Language: Polish Communication Ability: Effective Beliefs That Will Affect Care: None Current Living Situation: Spouse Feels Safe at Home: Yes Smoking Status: Never smoker Second Hand Exposure: No Hx Alcohol Use: Yes Alcohol type: wine Hx Substance Use: No Review of Systems Review of Systems: The patient denies chest pain, palpitations, shortness of breath, dyspnea on exertion, lower extremity swelling, chills, sweats, nausea, vomiting, diarrhea , constipation, abdominal pain, pelvic pain, blood in urine or stool, dysuria, urinary frequency or urgency, headache, loss of consciousness, rash, abnormal bruising or bleeding, or night sweats. The review of systems is otherwise negative other than for that already noted above, and at least 10 systems have been reviewed. Physical Exam Physical Exam: The patient is awake, alert and oriented 3, well developed and well nourished, normocephalic and atraumatic, lying in bed and in no acute distress. HEENT--PERRL, EOMI, mucous membranes and oropharynx very dry. Neck--supple. No JVD. No bruits. Thyroid normal, trachea midline, no adenopathy. Heart--normal S1 and S2. No murmurs, rubs or gallops. Lungs--decreased breath sounds at the bases, right greater than left. Abdomen--normal bowel sounds and soft. Nontender. Nondistended, no hernias or masses, no organomegaly. Extremities--no cyanosis or clubbing. No edema. There are good distal pulses b/l. Dermatologic--normal skin turgor, normal color, no abnormal lymph nodes, no rash. Neurologic--cranial nerves II through XII grossly intact. Rheumatologic--normal range of motion. Psychiatric--normal affect. Results & Data Vital Signs (Past 12 Hours) Vital Signs Temp Pulse Pulse Resp BP BP Pulse Ox 01/15/19 19:00 83 18 127/63 95 01/15/19 18:56 98.8 F 89 L 01/15/19 17:44 102 H 15 152/69 H 95 01/15/19 17:42 94 01/15/19 17:16 102.2 F H 111 H 20 133/68 94 Laboratory Results Laboratory Results WBC 13.29 K/uL (4.8-10.8) H 01/15/19 18:06 RBC 4.47 M/uL (4.2-5.4) 01/15/19 18:06 Hgb 14.1 g/dL (12.0-16.0) 01/15/19 18:06 Hct 41.0 % (37-47) 01/15/19 18:06 MCV 91.7 fL (80-100) 01/15/19 18:06 MCH 31.5 pg (25-34) 01/15/19 18:06 MCHC 34.4 g/dL (32-36) 01/15/19 18:06 RDW Std Deviation 43.7 fL (36.4-46.3) 01/15/19 18:06 RDW Coeff of David 13.1 % (11.5-14.5) 01/15/19 18:06 Plt Count 183 K/uL (130-400) 01/15/19 18:06 MPV 11.5 fL (7.4-10.4) H 01/15/19 18:06 Immature Gran % (Auto) 0.4 % 01/15/19 18:06 Neut % (Auto) 75.8 % 01/15/19 18:06 Lymph % (Auto) 10.8 % 01/15/19 18:06 [place] % (Auto) 12.8 % 01/15/19 18:06 Eos % (Auto) 0.1 % 01/15/19 18:06 Baso % (Auto) 0.1 % 01/15/19 18:06 Immature Gran # (Auto) 0.05 K/uL (0.00-0.02) H 01/15/19 18:06 Neut # (Auto) 10.08 K/uL (1.4-6.5) H 01/15/19 18:06 Lymph # (Auto) 1.44 K/uL (1.2-3.4) 01/15/19 18:06 [place] # (Auto) 1.70 K/uL (0.11-0.59) H 01/15/19 18:06 Eos # (Auto) 0.01 K/uL (0-0.5) 01/15/19 18:06 Baso # (Auto) 0.01 K/uL (0-0.2) 01/15/19 18:06 PT 11.9 Seconds (9.0-12.0) 01/15/19 18:06 INR 1.2 (0.9-1.1) H 01/15/19 18:06 APTT 31.6 Seconds (21.0-31.0) H 01/15/19 18:06 PTT Ratio 1.2 01/15/19 18:06 Sodium 139 mmol/L (136-145) 01/15/19 18:06 Potassium 3.7 mmol/L (3.5-5.1) 01/15/19 18:06 Chloride 106 mmol/L (98-107) 01/15/19 18:06 Carbon Dioxide 22 mmol/L (21-32) 01/15/19 18:06 Anion Gap 11.0 (3-11) 01/15/19 18:06 BUN 18 mg/dl (7-18) 01/15/19 18:06 Creatinine 0.89 mg/dl (0.6-1.2) 01/15/19 18:06 Est Cr Clr Drug Dosing 57.2 ml/min 01/15/19 18:06 Est GFR ( Amer) 72.5 01/15/19 18:06 Est GFR (Non-Af Amer) 62.5 01/15/19 18:06 BUN/Creatinine Ratio 20.3 (10-20) H 01/15/19 18:06 Glucose 97 mg/dl (70-99) 01/15/19 18:06 Lactate 1.1 mmol/L (0.4-2.0) 01/15/19 18:06 Calcium 9.3 mg/dl (8.5-10.1) 01/15/19 18:06 Total Bilirubin 1.8 mg/dl (0.2-1) H 01/15/19 18:06 AST 29 U/L (15-37) 01/15/19 18:06 ALT 39 U/L (12-78) 01/15/19 18:06 Alkaline Phosphatase 106 U/L (45-117) 01/15/19 18:06 Total Protein 6.7 gm/dl (6.4-8.2) 01/15/19 18:06 Albumin 3.0 gm/dl (3.4-5.0) L 01/15/19 18:06 Globulin 3.7 gm/dl (2.5-4.0) 01/15/19 18:06 Albumin/Globulin Ratio 0.8 (0.9-2) L 01/15/19 18:06 Urine Color [place] 01/15/19 18:26 Urine Appearance Cloudy (Clear) A 01/15/19 18:26 Urine pH 5.0 (4.5-7.5) 01/15/19 18:26 Ur Specific [place] 1.025 (1.000-1.030) 01/15/19 18:26 Urine Protein 1+ (Negative) H 01/15/19 18:26 Urine Glucose (UA) Negative (Negative) 01/15/19 18:26 Urine Ketones 1+ (Negative) H 01/15/19 18:26 Urine Blood Trace (Negative) H 01/15/19 18:26 Urine Nitrite Positive (Negative) A 01/15/19 18:26 Urine Bilirubin Negative (Negative) 01/15/19 18:26 Urine Urobilinogen Negative (Negative) 01/15/19 18:26 Ur Leukocyte Esterase 2+ (Negative) H 01/15/19 18:26 Urine WBC (Auto) >30 /hpf (0-5) H 01/15/19 18:26 Urine RBC (Auto) 0-4 /hpf (0-4) 01/15/19 18:26 U Hyaline Cast (Auto) 1-5 /lpf (0-5) 01/15/19 18:26 U Epithel Cells (Auto) 5-10 /lpf (0-5) H 01/15/19 18:26 Urine Bacteria (Auto) 3+ (Negative) H 01/15/19 18:26 Granular Casts 1-5 /lpf (0) H 01/15/19 18:26 Urine Mucus Present (None Prsent) A 01/15/19 18:26 Influenza Type A (PCR) Neg for Influ A (Neg) 01/15/19 18:15 Influenza Type B (PCR) Neg for Influ B (Neg) 01/15/19 18:15 [phone] [facility] Report Patient: ZACK GAMBINO PAdmit Date: 01/15/19 MR#: [id number]: [address] Acct ID:[id number]: Date: [address] Zip: [place] [address] Age: 78Location: ED Sex: F Room/Bed: Att Phy: Diagnosis: [id number] NECK Suha Phy: Florian Dobbins, MDService Date: 01/15/19 [facility] Phy: Interpreting Phy: Ruben Johnson MD Admit Phy: Ordering Phy: Pasha Sepulveda M.D. cc: ~ SINGLE VIEW CHEST CLINICAL HISTORY: Sepsis. FINDINGS: An AP, portable, upright chest radiograph is compared to study dated 10/10/2018 and correlated with chest CT dated 07/08/2018. The examination is degraded by portable technique and patient rotation. The heart is top normal for projection noting atherosclerotic calcification of the thoracic aorta. There is bibasilar consolidation, right greater than left. Small pleural effusions are noted. No pneumothorax is seen. The skeletal structures are osteopenic. Degenerative change and scoliosis are noted in the thoracic spine. Spinal rods are in place. IMPRESSION: 1. There is bibasilar consolidation, right greater than left. The appearance is typical for pneumonia/aspiration pneumonitis. Clinical correlation will be required and radiographic follow-up to resolution is recommended. 2. Small pleural effusions. Electronically signed by: Ruben Johnson M.D. 01/15/2019 6:18 PM Dictated: 01/15/191816 Transcribed: 01/15/191816 Code Status & VTE Plan Code Status Full code VTE Prophylaxis Plan VTE Prophylaxis will be ordered: Yes PG Care Time/CCT Total # of Minutes Spent Total Time Spent with Patient: Total time spent is greater than 50% in coordination of care (as documented) at patient's floor/unit and/or counseling patient: (1) Sepsis Sepsis type: sepsis due to unspecified organism Qualified Code(s): A41.9 - Sepsis, unspecified organism (2) Pneumonia Laterality: bilateral Lung location: lower lobe of lung Pneumonia type: due to unspecified organism Qualified Code(s): J18.1 - Lobar pneumonia, unspecified organism
[2019-01-16] MEDS ORDERED: ALUMINUM/MAGNESIUM SUSP 30 ML UDC PO PRN (00:42)
[2019-01-16] MEDS ORDERED: PIPERACILL/TAZOBAC CONSULT ACTIVE PRN (00:42)
[2019-01-16] MEDS ORDERED: ARTIFICIAL TEARS OPB PRN (00:42)
[2019-01-16] MEDS ORDERED: ACETAMINOPHEN 325 MG TAB PO PRN (00:42)
[2019-01-16] MEDS ORDERED: MAGNESIUM HYDROXIDE SUSP 30 ML UDC PO PRN (00:42)
[2019-01-16] MEDS ORDERED: PIPERACILLIN/TAZOBACTAM 4.5 GM in DEXTROSE 5% 100 ML IV SCH (00:42)
[2019-01-16] MEDS ORDERED: ONDANSETRON INJ 2 MG/ML 2 ML VIAL IV PRN (00:42)
[2019-01-16] MEDS: HEPARIN SOD 5,000 UNIT/0.5 ML VIAL SQ SCH ×3 (02:08→21:33)
[2019-01-16] MEDS: PIPERACILLIN/TAZOBACTAM 3.375 GM in DEXTROSE 5% 100 ML IV SCH ×2 (02:08→09:51)
[2019-01-16] MEDS: ATORVASTATIN 10 MG TAB PO SCH ×2 (02:09→21:34)
[2019-01-16] MEDS: guaiFENesin 600 MG TABCR PO SCH ×3 (02:09→21:34)
[2019-01-16] MEDS: MONTELUKAST SODIUM 10 MG TABLET PO SCH ×2 (02:10→21:34)
[2019-01-16] MEDS: LEVOTHYROXINE SODIUM 75 MCG TABLET PO SCH (05:25)
[2019-01-16] MEDS: KETOCONAZOLE~ORDER AWAITING ACTION SCH ×2 (07:26→15:47)
[2019-01-16] MEDS ORDERED: ALBUT/IPRATROP 3MG/0.5MG NEB 3 ML VIAL NEB SCH (08:00)
[2019-01-16] MEDS ORDERED: BUDESONIDE 0.5 MG/2 ML VIAL (PULMICORT) NEB SCH (08:00)
[2019-01-16] MEDS ORDERED: ALBUT/IPRATROP 3MG/0.5MG NEB 3 ML VIAL NEB PRN ×2 (09:25→09:36)
[2019-01-16] MEDS: PANTOprazole 40 MG TAB PO SCH (09:48)
[2019-01-16] MEDS: VENLAFAXINE HCL XR 75 MG CAPXR PO SCH (11:52)
[2019-01-16] MEDS: CHOLECALCIFEROL 1,000 UNITS TAB PO SCH (11:52)
[2019-01-16] MEDS: AMPICILLIN/SULBACTAM SOD 3,000 MG in 0.9 % SODIUM CHLORIDE 100 ML IV SCH ×2 (12:10→18:26)
--- NOTE | 2019-01-16 16:44 | Family Medicine Progress Note ---
Date of Service January 16, 2019 Assessment & Plan (1) Infectious encephalopathy: Renate Concepcion is a 78 year old woman here for altered mental status with fever on admission. She had a positive UA with gram negative bacilli growing in culture and 2 negative blood cultures to date. Evidence for bibasilar pneumonia vs aspiration pneumonitis on x ray. Altered Mental Status present at bedside and says her mental status is normal at baseline. Currently having trouble finding words and not oriented to place, time or situation Likely secondary to infectious etiology UTI vs pneumonia vs combination of the two Switched zosyn to unasyn Will continue to monitor for improvement, patient has remained comfortable and afebrile Pneumonia Evidence of bibasilar consolidation on CXR Concerning for possible aspiration pneumonitis, ordered speech eval who found no evidence of impaired swallow Covering possible community acquired pneumonia with unasyn Respiratory status has remained stable on room air with cough but no decreased oxygenation UTI Patient unable to tell me if she is symptomatic CUlture growing gram negative bacilli, but culture was not a good sample with many epithelial cells. Should be covered by unasyn Sepsis Not currently septic, will give IV fluid and exoand antibiotic coverage if patient becomoes hemodynamically unstable and temperatures rise. F/E/N: Full diet DVT PPx: Heparin SubQ Dispo: Med Surg (2) Acute UTI: (3) Pneumonia: (4) Hyperlipidemia: (5) Hypothyroidism (acquired): (6) GERD (gastroesophageal reflux disease): (7) Anxiety with depression: Supervising Physician Co-Signing Physician Notes I personally examined the patient and verified all sethi points of history and exam, discussed case, and agree with decision making with Dr Snell. Awake and eating. Still seems to be slow to respond. Has no specific complaints, does get somewhat tearful. notes she is not yet at her baseline. Vitals noted, in general she is awake and alert pleasant but appears to be somewhat emotionally distressed for more than physical distress. HEENT normocephalic atraumatic mucous membranes moist. Breathing shows her lungs to have may be diminished air entry bibasilar but certainly nothing of overwhelming significance, no adventitious sounds, no rales/rhonchi/wheezes with good effort. Skin shows no rashes no pallor or icterus. Neuro shows no focal deficits. Altered mental statusappears to be encephalopathy, most likely related to UTI, pneumonia, or both. Continue with serial exams and follow for improvement with current treatment. Possible pneumoniadoes not appear to aspirate per speech therapy, input greatly appreciated, this would make it much more likely to be a community-acquired pneumonia. Continue current antibiotics. Urinary tract infectioncontinue current antibiotics pending final culture results. (Antibiotics changed from Zosyn to Unasyn given low risk for Pseudomonas, otherwise coverage quite similar) DVT prophylaxisheparin subcu Subjective Renate Concepcion very confused this morning, unable to provide any history. Awake, alert and Oriented only to person. patient became very tearful when she could not find the words she wanted Review of Systems Review of Systems: Unobtainable due to cognitive status Physical Exam Constitutional: well developed, well nourished, cooperative and comfortable; no acute distress Eyes: PERRL, conjunctivae normal, anicteric sclerae ENMT: external ear and nose normal, oropharynx normal Respiratory: normal respiratory effort, lungs clear to auscultation Cardiovascular: RRR, no murmur, no edema Gastrointestinal (Abdomen): Inspection/Auscultation: abdomen normal to inspection Percussion/Palpation: abdomen soft; abdomen nontender Skin: no rashes, warm and dry Neurologic: PERRL, EOMI, accommodation nl, no face palsy, no dysarthria Results & Data Vital Signs (Past 12 Hours) Vital Signs Temp Pulse Pulse Resp BP Pulse Ox 01/16/19 15:41 36.5 C 85 20 131/71 96 01/16/19 12:00 38.0 C H 96 H 18 144/78 H 96 01/16/19 08:00 105 H 01/16/19 07:18 101 H 16 99 01/16/19 07:02 36.9 C 98 H 18 164/80 H 94 PG Care Time/CCT Total # of Minutes Spent Total Time Spent with Patient: Total time spent is greater than 50% in coordination of care (as documented) at patient's floor/unit and/or counseling patient: Resident Activity Tracking Resident Involvement: Resident Care Provided Care Provided: Adult Hospital Medicine (1) Pneumonia Laterality: bilateral Lung location: lower lobe of lung Pneumonia type: due to unspecified organism Qualified Code(s): J18.1 - Lobar pneumonia, unspecified organism
[2019-01-17] MEDS: AMPICILLIN/SULBACTAM SOD 3,000 MG in 0.9 % SODIUM CHLORIDE 100 ML IV SCH ×2 (00:47→05:46)
[2019-01-17] MEDS: KETOCONAZOLE~ORDER AWAITING ACTION SCH ×2 (01:41→07:15)
[2019-01-17] MEDS: LEVOTHYROXINE SODIUM 75 MCG TABLET PO SCH (05:47)
[2019-01-17 07:42] LABS: Basophils # (auto) 0.02 K/uL (0-0.2); Basophils % (auto) 0.2 %; Eosinophils # (auto) 0.18 K/uL (0-0.5); Eosinophils % (auto) 1.7 %; Hematocrit (blood only) 39.3 % (37-47); Hemoglobin 13.4 g/dL (12.0-16.0); Immature Granulocytes # (auto) 0.04 K/uL (0.00-0.02); Immature Granulocytes % (auto) 0.4 %; Lymphocytes # (auto) 1.08 K/uL (1.2-3.4); Lymphocytes % (auto) 10.5 %; Mean Corpuscular Hgb Conc 34.1 g/dL (32-36); Mean Platelet Volume 11.3 fL (7.4-10.4); Monocytes # (auto) 1.33 K/uL (0.11-0.59); Monocytes % (auto) 12.9 %; Neutrophils # (auto) 7.66 K/uL (1.4-6.5); Neutrophils % (auto) 74.3 %; Platelet Count 198 K/uL (130-400); RDW Standard Deviation 43.6 fL (36.4-46.3); Red Blood Count 4.32 M/uL (4.2-5.4); White Blood Count 10.31 K/uL (4.8-10.8)
[2019-01-17 08:19] LABS: Albumin Level 2.6 gm/dl (3.4-5.0); BUN Creatinine Ratio 20.1 (10-20); Calcium 8.9 mg/dl (8.5-10.1); Creatinine Clr Calc Pharmacy 61.4 ml/min; Potassium 3.2 mmol/L (3.5-5.1)
[2019-01-17 08:28] LABS: Albumin Globulin Ratio 0.7 (0.9-2); Bilirubin,Total 0.8 mg/dl (0.2-1); Globulin 3.6 gm/dl (2.5-4.0); Total Protein 6.2 gm/dl (6.4-8.2)
[2019-01-17] MEDS: guaiFENesin 600 MG TABCR PO SCH (08:45)
[2019-01-17] MEDS: HEPARIN SOD 5,000 UNIT/0.5 ML VIAL SQ SCH (08:45)
[2019-01-17] MEDS: VENLAFAXINE HCL XR 75 MG CAPXR PO SCH (10:57)
[2019-01-17] MEDS: PANTOprazole 40 MG TAB PO SCH (10:58)
[2019-01-17] MEDS: CHOLECALCIFEROL 1,000 UNITS TAB PO SCH (10:59)
[2019-01-17] MEDS ORDERED: CEFDINIR 300 MG CAP PO ONE (11:00)
--- NOTE | 2019-01-17 14:06 | Discharge Summary ---
Date of Service January 17, 2019 Admission HPI Per Admitting Provider The patient is a 78-year-old female with a past medical history including asthma, hyperlipidemia, hypothyroidism, GERD, thoracolumbar pablo placement, and anxiety/depression, who presents to the emergency department with 24 hours of flulike symptoms including confusion, fevers and chills, cough and generalized myalgias. Her is with her and helps to supply her history. She has not had any recent travels or sick exposures. She has had decreased oral intake over the past 24 hours. Admission Exam Per Admitting Provider The patient is awake, alert and oriented 3, well developed and well nourished, normocephalic and atraumatic, lying in bed and in no acute distress. HEENT--PERRL, EOMI, mucous membranes and oropharynx very dry. Neck--supple. No JVD. No bruits. Thyroid normal, trachea midline, no adenopathy. Heart--normal S1 and S2. No murmurs, rubs or gallops. Lungs--decreased breath sounds at the bases, right greater than left. Abdomen--normal bowel sounds and soft. Nontender. Nondistended, no hernias or masses, no organomegaly. Extremities--no cyanosis or clubbing. No edema. There are good distal pulses b/l. Dermatologic--normal skin turgor, normal color, no abnormal lymph nodes, no rash. Neurologic--cranial nerves II through XII grossly intact. Rheumatologic--normal range of motion. Psychiatric--normal affect. Principal Diagnosis septic encephalopathy related to pneumonia, UTI, or both Discharge Exam Constitutional well developed, well nourished, cooperative and comfortable; no acute distress Eyes PERRL, conjunctivae normal, anicteric sclerae ENMT external ear and nose normal, oropharynx normal Respiratory normal respiratory effort, lungs clear to auscultation Cardiovascular RRR, no murmur, no edema Gastrointestinal (Abdomen) Inspection/Auscultation: abdomen normal to inspection Percussion/Palpation: abdomen soft; abdomen nontender Skin no rashes, warm and dry Neurologic PERRL, EOMI, accommodation nl, no face palsy, no dysarthria Discharge Data Allergies Allergy/AdvReac Type Severity Reaction Status Date / Time doxycycline Allergy Mild itchy;red Verified 01/15/19 17:39 skin estrogens, conjugated Allergy Mild RASH Verified 01/15/19 17:39 perfume Allergy Mild Sneezing Verified 01/15/19 17:39 pollen extracts Allergy Mild Sneezing Verified 01/15/19 17:39 Sulfa (Sulfonamide Allergy Mild RASH Verified 01/15/19 17:39 Antibiotics) adhesive AdvReac Mild skin Verified 01/15/19 17:39 irritation INHALERS Allergy Intermediate THRUSH IN Uncoded 01/15/19 17:39 MOUTH Consultations 01/15/19 18:44 ED Decision to Admit Stat 01/16/19 00:42 Consult Case Management - Discharge Planning Routine Hospital Course (1) Infectious encephalopathy: Renate Concepcion is a 78 year old woman initially presented for altered mental status with fever on admission. Altered Mental Status Patient presented with fever and acutely altered mental status, she cannot tell where she was what was happening or any reasonable history. Oriented only to self Urinalysis at time of admission was dirty culture grew ampicillin resistant E. coli Chest x-ray at time of admission showed bibasilar consolidation which represented either pneumonia versus atelectasis Patient initially treated with Zosyn in ED switch to ampicillin sulbactam, switched again to cefdinir based on sensitivity of urine culture blood cultures x2 at admission with no growth to date. Patient discharged on a 10-day course of cefdinir which should cover both her urinary tract infection as well as a possible pneumonia. At time of discharge patient appears to be in usual state of health is no longer delirious or having any confusion. Pneumonia Evidence of bibasilar consolidation on CXR Initially concern for possible aspiration pneumonitis, ordered speech eval who found no evidence of impaired swallow Respiratory status was never in jeopardy breathing comfortably on room air throughout admission Total Time Total Time Spent Total Time Spent (In Minutes): Less than 30 Discharge Plan Discharge Items Patient Disposition: Home - Self-Care Reason For Visit: SEPSIS, PNEUMONIA, UTI Discharge Diagnosis: Urinary Tract infection with possible pneumonia Discharge Goals: Improve function Activity: Resume your previous activity Non-emergency contact: Primary Care Provider Call non-emergency contact if: you have any medication questions, your symptoms worsen, your pain is not controlled and your temperature is above 100.5 Follow-up/Referrals: Florian Dobbins MD [Primary Care Provider] - 01/20/19 1:30 pm (Please, follow up at Dr. Dobbins's office with his delinquent tax collection assistant, Sudha Kelly PA-C, on WednesdayJanuary 20 at 1:30 pm. *If you need to change this appointment, call the office at [phone].) Diet: Regular Addtl Provider Instructions: Ms. Concepcion, it was our pleasure to treat you for your altered mental status. We believe this was likely secondary to something we called septic encephalopathy, basically that's a fancy way of saying your delirium was caused by an infection. In your case you have a urinary tract infection and a possible pneumonia both of which could cause you to feel delirious. We are discharging you on an antibiotic that should cover both of these sources of infection called cefdinir. You are to take this twice a day once in the morning and once in the evening for ten days. We would like you to stop taking your amoxicillin moving forward, otherwise continue your home meds you were on prior to admission. You very well may continue to have some level of confusion and continue to cough up junky sputum for the near future as you heal, do not be alarmed by a slow recovery, but should you become worse have any fevers, chills, difficulty breathing, chest pain, or other concerning symptoms for you please return to medical care. Prescriptions: New cefdinir 300 mg Capsule 300 mg PO BID 10 Days Qty: 20 RF: 0 Continued venlafaxine [Effexor XR] 75 mg Capsule,Extended Release 24hr 75 mg PO QDL RF: 0 atorvastatin 10 mg Tablet 10 mg PO HS RF: 0 levothyroxine 75 mcg Tablet 75 mcg PO QAM RF: 0 montelukast [Singulair] 10 mg Tablet 10 mg PO HS RF: 0 Systane Balance 0.6 % Drops 1 drp OPB QID PRN (Reason: EYE DRYNESS) RF: 0 ketoconazole 1 % Shampoo 1 applic TOPICAL Q3D PRN (Reason: SCALP ITCHING) RF: 0 clobetasol 0.05 % Cream 1 applic TOPICAL .HS/WEEKLY RF: 0 cholecalciferol (vitamin D3) [Vitamin D3] 1,000 unit Capsule 1,000 unit PO QDL RF: 0 omeprazole 20 mg Tablet,Delayed Release (Dr/Ec) 20 mg PO DAILYBL RF: 0 Discontinued amoxicillin 500 mg Tablet 2,000 mg PO DIRECTED PRN (Reason: DENTAL PROCEDURE) RF: 0 Stand-Alone Forms: My [facility] Discharge Orders: Discharge Order (Routine); Ordered 01/17/19 Ordered By: Ronnie Snell Admission Data Admit Date/Time: 01/15/19 20:27 Attending Provider: Yazan Almaraz Admit Provider: Cruz Augustine Primary Care Provider: Florian Dobbins Other Providers: Heidi Patricio ; Cruz Augustine Service: Telemetry Medical Other Interventions: Discharge Summary Assessment (RN) Last Done: 01/17/19 11:57 DC Date/Time DO NOT enter until pt leaves facility: 01/17/19 13:24 Supervising Physician Co-Signing Physician Notes I personally examined the patient and verified all sethi points of history and exam, discussed case, and agree with decision making with Dr Snell. Feeling better breathing better. Does have a cough with some green sputum. Overall much improved. Vitals noted, awake and alert. Seems still a little bit slow to respond but no distress. Certainly not the spells of yesterday. Breathing unlabored no accessory muscle use good effort. Skin shows no rashes no pallor or icterus. No focal neuro deficits. Altered mental statusappears to be septic encephalopathy, most likely related to UTI, pneumonia, or both. Improved dramatically. Discussed with patient and family that her improvement may still take several weeks, but that since she is improving she would likely do better/be safer at home, and that they should look for improvement at a pace of approximately daily to every few days. Possible pneumoniadoes not appear to aspirate per speech therapy, input greatly appreciated, this would make it much more likely to be a community-acquired pneumonia. Safe for discharge to home on Cefdinir Urinary tract infectionculture results noted. Same antibiotics as per pneumonia should cover this. DVT prophylaxisheparin subcu utilized during her stay Stable for discharge home, close PCP follow-up, finish course of antibiotics as above noted. Otherwise as above Resident Activity Tracking Resident Involvement: Resident Care Provided Care Provided: Adult Hospital Medicine
[2019-01-17] MEDS ORDERED: CEFDINIR 300 MG CAP PO SCH (21:00)
== END 2019-01-17 13:24 | disposition home or self-care (01) | DRG 871 ==
LOC: ED 17:11 → 2W 20:27 → SUATTDRO 20:27 → 2W 21:14

== ENCOUNTER 2019-06-28 12:16 | Observation (INO) ==
[2019-06-28] MEDS ORDERED: SODIUM CHLORIDE 0.9% 1000ML 1,000 ML IV SCH (12:45)
[2019-06-28 12:58] LABS: Appearance Urine Cloudy (Clear); Bacteria Urine Automated 2+ (Negative); Bilirubin Urine Negative (Negative); Blood Urine Negative (Negative); Color Urine Yellow; Epithelial Cell Urine Auto >30 /lpf (0-5); Glucose Urine UA Negative (Negative); Ketones Urine Negative (Negative); Leukocyte Esterase Urine 3+ (Negative); Nitrite Urine Negative (Negative); Specific Gravity Urine 1.016 (1.000-1.030); Urobilinogen Urine Negative (Negative); WBC Urine Automated >30 /hpf (0-5); pH Urine 8.5 (4.5-7.5)
--- NOTE | 2019-06-28 13:07 | XRay Report ---
XR chest 1V portable CLINICAL HISTORY: 78 years-old Female presenting with ams. TECHNIQUE: Portable upright AP view of the chest was obtained. COMPARISON: 04/05/2019. FINDINGS: Atherosclerosis of the aortic arch. Cardiac silhouette enlarged. Lungs are hyperinflated. Decreased r ight basilar opacity. Persistent blunting of the left costophrenic angle. No large effusion or pneumo thorax. Osteopenia may be present. Moderate dextroscoliosis with extensive thoracolumbar pablo fixation . Upper abdomen normal. IMPRESSION: 1. Decreased right basilar atelectasis in comparison to prior. 2. No new focal infiltrate to suggest pneumonia. ACT 112: Negative or not required by law. Electronically signed by: Randy Gilmore M.D. 06/28/2019 1:05 PM
[2019-06-28 13:21] LABS: Protein Urine Negative (Negative); Sulfosalicylic Acid Urine Negative (Negative)
[2019-06-28 13:32] LABS: Cast Urine Automated 0 /lpf (0-5)
[2019-06-28 13:35] LABS: Basophils # (auto) 0.04 K/uL (0-0.2); Basophils % (auto) 0.6 %; Eosinophils % (auto) 1.4 %; Hematocrit (blood only) 47.4 % (37-47); Immature Granulocytes # (auto) 0.01 K/uL (0.00-0.02); Immature Granulocytes % (auto) 0.1 %; Lymphocytes # (auto) 1.82 K/uL (1.2-3.4); Lymphocytes % (auto) 26.2 %; Mean Corpuscular Hemoglobin 32.1 pg (25-34); Mean Corpuscular Hgb Conc 33.8 g/dL (32-36); Mean Platelet Volume 10.9 fL (7.4-10.4); Monocytes # (auto) 0.71 K/uL (0.11-0.59); Monocytes % (auto) 10.2 %; Neutrophils # (auto) 4.26 K/uL (1.4-6.5); Neutrophils % (auto) 61.5 %; Platelet Count 280 K/uL (130-400); RDW Coefficient of Variation 13.8 % (11.5-14.5); RDW Standard Deviation 47.3 fL (36.4-46.3); Red Blood Count 4.99 M/uL (4.2-5.4); White Blood Count 6.94 K/uL (4.8-10.8)
[2019-06-28 13:43] LABS: Amphetamines+Metham, Urine Neg (Neg); Barbiturates, Urine Neg (Neg); Benzodiazepine, Urine Neg (Neg); Cocaine, Urine Neg (Neg); MDMA (Ecstacy), Urine Neg (Neg); Methadone, Urine Neg (Neg); Opiate, Urine Neg (Neg); Phencyclidine, Urine Neg (Neg)
[2019-06-28 13:44] LABS: INR 1.1 (0.9-1.1); Prothrombin Time 10.9 Seconds (9.0-12.0)
[2019-06-28 13:51] LABS: Alanine Aminotransferase 55 U/L (12-78); Albumin Level 3.6 gm/dl (3.4-5.0); Aspartate Aminotransferase 39 U/L (15-37); BUN Creatinine Ratio 15.7 (10-20); Blood Urea Nitrogen 16 mg/dl (7-18); Calcium 9.6 mg/dl (8.5-10.1); Carbon Dioxide 26 mmol/L (21-32); Chloride 111 mmol/L (98-107); Creatinine Clr Calc Pharmacy 50.6 ml/min; Est GFR (African American) 63.7; Glucose 83 mg/dl (70-99); Potassium 3.9 mmol/L (3.5-5.1); Sodium 142 mmol/L (136-145)
[2019-06-28 13:56] LABS: Alkaline Phosphatase 99 U/L (45-117); Bilirubin,Total 1.1 mg/dl (0.2-1); Globulin 3.6 gm/dl (2.5-4.0); Total Protein 7.2 gm/dl (6.4-8.2); Troponin I < 0.015 ng/ml (0-0.045)
[2019-06-28] MEDS ORDERED: IOVERSOL 100ml IV PRN (14:45)
--- NOTE | 2019-06-28 14:58 | CT Scan Report ---
CT OF THE HEAD WITHOUT CONTRAST CLINICAL HISTORY: Altered mental status. COMPARISON STUDY: Head CT October 07, 2013. MRI of the brain May 27, 2015. TECHNIQUE: Helical axial images of the head were obtained without IV contrast. Automated exposure con trol was utilized for the study. A dose lowering technique was utilized adhering to the principles o f ALARA. FINDINGS: No acute intracranial hemorrhage, midline shift or mass effect is present. Mild ventricular dilatation is due to atrophy. Basilar cisterns are patent. White matter hypodensity suggests small v essel disease. There are no findings to suggest acute dural sinus thrombosis or acute territorial inf arct. There are no significant calvarial abnormalities. There is trace fluid within the right mastoid air cells. IMPRESSION: No acute intracranial findings. ACT 112: Negative or not required by law. Electronically signed by: Ari Evangelista M.D. 06/28/2019 2:56 PM
--- NOTE | 2019-06-28 15:06 | CT Scan Report ---
CT OF THE ABDOMEN AND PELVIS WITH CONTRAST CLINICAL HISTORY: Abdominal pain and confusion. COMPARISON STUDY: CT of the abdomen and pelvis May 28, 2015. TECHNIQUE: Following IV administration of 94 mL of Optiray-320, axial images of the abdomen and pelvi s were obtained from the lung bases to the proximal femurs. Images were reviewed in the axial, sagitt al, and coronal planes. IV contrast was administered without complication. Automated exposure contro l was utilized for the study. A dose lowering technique was utilized adhering to the principles of A [place]. CT DOSE: 2387.33 mGy.cm FINDINGS: Scoliosis hardware is noted. No pneumatosis, free air or portal venous gas is present. Ther e is fatty infiltration of the liver. No hepatic lesions are present. There is no biliary or pancreat ic ductal dilatation. A diverticulum of the third portion the duodenum is noted. The spleen, adrenal glands and pancreas are unremarkable. A few large left renal cysts measure up to 7.4 cm. Multiple lef t renal calculi measure up to 7 mm. There are no ureteral calculi. There is no hydronephrosis or hydr oureter. There is no evidence for a bowel obstruction. There is colonic diverticulosis without eviden ce for acute diverticulitis. The appendix is normal. There is no lymphadenopathy or ascites. No acute lumbar spine or pelvic fractures identified. Caliber and wall thickness of small and large bowel are normal. There is moderate plaque of the abdominal aorta which is normal in caliber. IMPRESSION: 1. No acute process within the abdomen or pelvis. 2. Left-sided nephrolithiasis. No ureteral calculi or hydronephrosis. Two large left renal cysts. 3. Colonic diverticulosis without evidence for acute diverticulitis. Normal appendix. No bowel obstru ction. 4. Fatty infiltration of the liver. ACT 112: Negative or not required by law. Electronically signed by: Ari Evangelista M.D. 06/28/2019 3:05 PM
[2019-06-28] MEDS ORDERED: SODIUM CHLORIDE 0.9% 1000ML 1,000 ML IV ONE (15:24)
[2019-06-28] MEDS ORDERED: cefTRIAXone SODIUM 1,000 MG/50 ML BAG IV STA (15:24)
--- NOTE | 2019-06-28 15:31 | Electrocardiogram Report ---
Test Reason : Blood Pressure : / mmHG Vent. Rate : 085 BPM Atrial Rate : 085 BPM P-R Int : 128 ms QRS Dur : 082 ms QT Int : 392 ms P-R-T Axes : 057 014 066 degrees QTc Int : 466 ms Normal sinus rhythm Normal ECG When compared with ECG of 20-DEC-2018 13:18, No significant change was found Confirmed by Demario Martinez ([id number]) on 06/28/2019 3:31:19 PM Referred By: Sudha Kelly Confirmed By:Demario Martinez
--- NOTE | 2019-06-28 16:57 | History & Physical Report ---
Date of Service June 28, 2019 Assessment & Plan (1) Acute UTI: Admit to telemetry for observation Vital signs every 4 hours Urine culture pending Started ceftriaxone 2 g IV empirically while urine culture is pending DVT prophylaxis Lovenox 40 mg subcu daily Full code Present on Admission?: Yes (2) Acute confusion: Per patient , patient is usually confused when she has urinary tract infection and when urinary tract infection resolves her confusion resolves as well. CT of the head showed no acute intracranial findings. Confusion likely related to acute urinary tract infection. Present on Admission?: Yes (3) Hyperlipidemia: Lipid panel pending. Continue atorvastatin 10 mg p.o. nightly. Present on Admission?: Yes (4) Hypothyroidism (acquired): TSH pending. Continue levothyroxine 75 MCG's p.o. every morning. Present on Admission?: Yes (5) Nephrolithiasis: No hydronephrosis. No issues at this time. Present on Admission?: Yes (6) Depression: Patient has impaired short-term memory and long-term memory most likely due to infection. This situation makes her sad but patient is not suicidal. Continue venlafaxine 75 mg p.o. daily, Present on Admission?: Yes (7) Asthma: Continue montelukast 10 mg p.o. nightly, albuterol HFA 2 puffs every 4 hours as needed. Present on Admission?: Yes (8) GERD (gastroesophageal reflux disease): Continue omeprazole 20 mg p.o. daily. Present on Admission?: Yes History of Present Illness Chief Complaint: Worsening confusion Primary Care Provider: Florian Dobbins MD Patient is a 78 years old female with past medical history of depression, osteoarthritis, nephrolithiasis, restrictive lung disease, dyslipidemia, GERD, hypothyroidism, hyperlipidemia, who presents to the emergency room with a complaint of worsening confusion over the past month according to the patient's . He states that patient has intermittent episodes of confusion and confusion is worsening in the past 3 to 4 days. Patient states that patient has memory loss, forgets who she is, forgets the name of her date of etc. The also reports that patient states she will see other people in the house even though they are not not actually there. In the ER patient is oriented only in person. Patient is not able to recall the name of the place not not the time of the year. Patient is not able to recall her date of birthday. The patient denies fever, chills, chest pain, shortness of breath, frequency, urgency, diarrhea, urinary symptoms or abdominal pain. Patient also denies weakness or numbness in her arms and legs as well as she denies cough or rhinorrhea. WBC 6.94, hemoglobin 16, hematocrit 47.4, platelets 280, PT 10.9, INR 1.1,PT 9.9, INR 1, APTT 29.9,. 2 she has, started sodium 142, potassium 3.9, chloride 111, BUN 16, creatinine 0.99, GFR 55, total bili 1.1, AST 39, ALT 55, troponin 0.015, albumin 3.6, globulin 3.6, procalcitonin 0.05, TSH done in April 0.422. Urinalysis shows cloudy urine, with 3+ leukocyte esterase and over 30 WBCs, urine bacteria 2+, urine tox screen negative. Chest x-rays decreased right basilar atelectasis in comparison to prior. No new focal infiltrate to suggest pneumonia. Head CT no acute intracranial findings. CT abdomen and pelvis with contrast shows no acute process within the abdomen or pelvis. Left-sided nephrolithiasis. No ureteral calculus or hydronephrosis. 2 large left renal cyst. Colonic diverticulosis without evidence of acute diverticulitis. Normal appendix. No bowel obstruction. Fatty infiltration of the liver. Decision was made to admit patient for observation to [facility] with telemetry for urinary tract infection and and acute on chronic confusion. Allergies Allergy/AdvReac Type Severity Reaction Status Date / Time doxycycline Allergy Mild itchy;red Verified 06/28/19 13:45 skin estrogens, conjugated Allergy Mild RASH Verified 06/28/19 13:45 perfume Allergy Mild Sneezing Verified 06/28/19 13:45 pollen extracts Allergy Mild Sneezing Verified 06/28/19 13:45 Sulfa (Sulfonamide Allergy Mild RASH Verified 06/28/19 13:45 Antibiotics) adhesive AdvReac Mild skin Verified 06/28/19 13:45 irritation INHALERS Allergy Intermediate THRUSH IN Uncoded 06/28/19 13:45 MOUTH Home Medications Home Medications Medication Instructions Recorded Confirmed Type ketoconazole 1 applic TOPICAL Q3D PRN 11/10/18 06/28/19 History amoxicillin 500 mg capsule 500 mg PO DIRECTED 01/20/19 06/28/19 History clobetasol 0.05 % topical cream 1 applic TOPICAL WEEKLY gm 02/15/19 06/28/19 History acetaminophen 325 mg tablet 325 mg PO Q6H PRN 03/01/19 06/28/19 History propylene glycol 0.6 % eye drops 1 drops OP DAILY PRN 03/01/19 06/28/19 History atorvastatin 10 mg tablet 10 mg PO HS #90 tab 04/05/19 06/28/19 Rx levothyroxine 75 mcg tablet 75 mcg PO QAM #90 tab 04/05/19 06/28/19 Rx montelukast 10 mg tablet 10 mg PO HS #90 tab 04/05/19 06/28/19 Rx venlafaxine 75 mg capsule,extended 75 mg PO DAILY #90 cap 04/05/19 06/28/19 Rx release 24 hr albuterol sulfate [ProAir HFA] 2 puffs INH Q4 PRN 06/28/19 06/28/19 History cholecalciferol (vitamin D3) 1,000 unit PO DAILY 06/28/19 06/28/19 History omeprazole 20 mg PO DAILY 06/28/19 06/28/19 History Past Med/Surg History Medical History Allergic rhinitis (Chronic) Arm contusion Asthma (Chronic) Ataxic gait (Chronic) Cyst of vagina Cystic kidney disease, unspecified (Chronic) DDD (degenerative disc disease), thoracolumbar Depression (Chronic) Disc degeneration, lumbar (Chronic) Dyslipidemia (Chronic) Epidermal cyst GERD (gastroesophageal reflux disease) (Chronic) History of herpes labialis Hyperlipidemia (Chronic) Hypothyroidism (acquired) (Chronic) Malignant neoplasm of unspecified upper limb Nephrolithiasis (Chronic) Osteoarthritis (Chronic) Pulmonary nodule (Chronic) Restrictive lung disease (Chronic) Scoliosis (Chronic) Striae atrophicae Temporomandibular joint disorder (Resolved) Vulvar vestibulitis Surgical History Fusion of spine (Resolved) LUMBAR History of cataract surgery (Resolved) LEFT/RT History of colonoscopy (Resolved) History of herniorrhaphy (Resolved) RT/LEFT INGUINAL History of kidney surgery History of tooth extraction (Resolved) S/P correction of deviated nasal septum S/P wisdom tooth extraction Family History Uncle Family history of diabetes mellitus Mother Asthma Cardiac disorder Hypertension Cancer Aunt Cancer Breast cancer Social History Preferred Language: Turkish Communication Ability: Effective Slicing Machine Feeder Required: No Beliefs That Will Affect Care: None marital status: Current Living Situation: Spouse Other Information That Helps Us Care for You: No Feels Safe at Home: Yes Safety Concerns: Feels Safe At This Time Smoking Status: Former smoker Do You Dip or Chew Tobacco: No ; Second Hand Exposure: No ; Tobacco Cessation Education Requested by Patient: No Hx Alcohol Use: Yes Alcohol type: wine Hx Substance Use: No Review of Systems Review of Systems: All systems reviewed & are unremarkable except as noted in HPI & below Physical Exam Constitutional: WD/WN, vitals as above well developed and + obese Eyes: PERRL, conjunctivae normal, anicteric sclerae ENMT: external ear and nose normal, oropharynx normal Neck: trachea midline, no thyromegaly Respiratory: normal respiratory effort, lungs clear to auscultation Cardiovascular: RRR, no murmur, no edema Gastrointestinal (Abdomen): normal bowel sounds, soft, nontender, no hepatosplenomegaly Musculoskeletal: no cyanosis or clubbing, extremities motor strength 5/5 Skin: no rashes, warm and dry Neurologic: patellar DTR's 2+ bilat, sensation intact Psychiatric: Affect: + depressed affect Mood: + anxious mood Suicidal Thoughts: denies suicidal thoughts, denies suicidal plan and denies suicidal intent Judgement: + limited judgement and + impaired judgement Impaired short-term memory Lymphatic: no cervical or axillary lymphadenopathy Results & Data Vital Signs (Past 12 Hours) Vital Signs Temp Pulse Pulse Resp BP BP Pulse Ox 06/28/19 16:01 91 H 21 162/99 H 94 06/28/19 16:00 89 19 97 06/28/19 15:38 87 22 166/94 H 97 06/28/19 15:37 88 20 166/94 H 100 06/28/19 15:35 87 34 H 06/28/19 14:31 79 18 172/92 H 100 06/28/19 14:28 78 80 16 164/76 H 164/76 H 100 06/28/19 14:00 78 14 143/90 H 100 06/28/19 13:45 88 23 147/92 H 100 06/28/19 13:43 79 15 147/92 H 100 06/28/19 13:00 88 22 100 06/28/19 12:58 87 25 H 157/95 H 99 06/28/19 12:57 95 H 18 150/101 H 100 06/28/19 12:55 90 14 143/84 H 100 06/28/19 12:53 85 15 149/87 H 100 06/28/19 12:51 84 16 99 06/28/19 12:47 92 H 100 06/28/19 12:44 85 13 161/91 H 99 06/28/19 12:21 36.4 C L 95 H 22 182/98 H 98 Code Status & VTE Plan Code Status Full code VTE Prophylaxis Plan VTE Prophylaxis will be ordered: Yes PG Care Time/CCT Total # of Minutes Spent Total Time Spent with Patient: Total time spent is greater than 50% in coordination of care (as documented) at patient's floor/unit and/or counseling patient:
[2019-06-28] MEDS ORDERED: POLYETHYLENE (MIRALAX) 17 GM PACK PO PRN (17:52)
[2019-06-28] MEDS ORDERED: ACETAMINOPHEN 325 MG TAB PO PRN (17:52)
[2019-06-28] MEDS ORDERED: MAGNESIUM HYDROXIDE SUSP 30 ML UDC PO PRN (17:52)
[2019-06-28] MEDS ORDERED: ALUMINUM/MAGNESIUM SUSP 30 ML UDC PO PRN (17:52)
[2019-06-28] MEDS ORDERED: ALBUTEROL HFA 8 GM INHALER INH PRN (18:02)
[2019-06-28] MEDS ORDERED: ARTIFICIAL TEARS OP PRN (18:03)
[2019-06-28] MEDS ORDERED: KETOCONAZOLE 2% SHAMPOO 120 ML BTL EXT PRN (18:14)
[2019-06-28] MEDS: NSS + 20MEQ KCL 20 MEQ/1,000 ML BAG IV SCH (18:34)
--- NOTE | 2019-06-28 18:38 | Emergency Department Note ---
Entered by Javon Jones acting as a scribe for History of Present Illness General Chief complaint: Anxiety Stated complaint: CRYING, ANXIETY, DEPRESSION Source: patient and family () History of Present Illness Onset (ago): month(s) 1 Location: head Pain Consistency: + other (worsening) Maximum Pain Intensity: 8 Quality: + other (confusion) Associated symptoms: + other (+memory loss; +frequent crying; +visual hallucinations; -change in vision; -diarrhea; -urinary symptoms; -abdominal pain; -numbness; -rhinorrhea); no chest pain, no cough, no nausea/vomiting, no shortness of breath and no weakness The patient is a 78 year old female, with past medical history of CKD, DDD, and depression, who presents to the Emergency Room with complaints of worsening confusion over the past month, according to the patients . He states she would have intermittent episodes of confusion over the last month, but he states it has become constant over the past 3-4 days. He states that the patient will at times have memory loss, forget who she is, and forget who her is. The notes the patient has not been able to do tasks that she used to be able to do, including writing checks and taking care of bills and paperwork. He states the patient has been crying a lot recently. The also reports that the patient states she will see other people in the house that are not actually there. The patient knows where she is currently and knows the month, but the patient can not recall the year. The patient starts crying after not being able to determine the year she was born. The patient denies chest pain, shortness of breath, change in vision, nausea, vomiting, diarrhea, urinary symptoms, or abdominal pain. The patient also denies weakness or numbness in arms and legs, and she denies recent cough or rhinorrhea. Home Medications Home Medications Medication Instructions Recorded Confirmed Type ketoconazole 1 applic TOPICAL Q3D PRN 11/10/18 06/28/19 History amoxicillin 500 mg capsule 500 mg PO DIRECTED 01/20/19 06/28/19 History clobetasol 0.05 % topical cream 1 applic TOPICAL WEEKLY gm 02/15/19 06/28/19 History acetaminophen 325 mg tablet 325 mg PO Q6H PRN 03/01/19 06/28/19 History propylene glycol 0.6 % eye drops 1 drops OP DAILY PRN 03/01/19 06/28/19 History atorvastatin 10 mg tablet 10 mg PO HS #90 tab 04/05/19 06/28/19 Rx levothyroxine 75 mcg tablet 75 mcg PO QAM #90 tab 04/05/19 06/28/19 Rx montelukast 10 mg tablet 10 mg PO HS #90 tab 04/05/19 06/28/19 Rx venlafaxine 75 mg capsule,extended 75 mg PO DAILY #90 cap 04/05/19 06/28/19 Rx release 24 hr albuterol sulfate [ProAir HFA] 2 puffs INH Q4 PRN 06/28/19 06/28/19 History cholecalciferol (vitamin D3) 1,000 unit PO DAILY 06/28/19 06/28/19 History omeprazole 20 mg PO DAILY 06/28/19 06/28/19 History Allergies Allergy/AdvReac Type Severity Reaction Status Date / Time doxycycline Allergy Mild itchy;red Verified 06/28/19 13:45 skin estrogens, conjugated Allergy Mild RASH Verified 06/28/19 13:45 perfume Allergy Mild Sneezing Verified 06/28/19 13:45 pollen extracts Allergy Mild Sneezing Verified 06/28/19 13:45 Sulfa (Sulfonamide Allergy Mild RASH Verified 06/28/19 13:45 Antibiotics) adhesive AdvReac Mild skin Verified 06/28/19 13:45 irritation INHALERS Allergy Intermediate THRUSH IN Uncoded 06/28/19 13:45 MOUTH Past Med/Surg History Medical History Allergic rhinitis (Chronic) Arm contusion Asthma (Chronic) Ataxic gait (Chronic) Cyst of vagina Cystic kidney disease, unspecified (Chronic) DDD (degenerative disc disease), thoracolumbar Depression (Chronic) Disc degeneration, lumbar (Chronic) Dyslipidemia (Chronic) Epidermal cyst GERD (gastroesophageal reflux disease) (Chronic) History of herpes labialis Hyperlipidemia (Chronic) Hypothyroidism (acquired) (Chronic) Malignant neoplasm of unspecified upper limb Nephrolithiasis (Chronic) Osteoarthritis (Chronic) Pulmonary nodule (Chronic) Restrictive lung disease (Chronic) Scoliosis (Chronic) Striae atrophicae Temporomandibular joint disorder (Resolved) Vulvar vestibulitis Surgical History Fusion of spine (Resolved) LUMBAR History of cataract surgery (Resolved) LEFT/RT History of colonoscopy (Resolved) History of herniorrhaphy (Resolved) RT/LEFT INGUINAL History of kidney surgery History of tooth extraction (Resolved) S/P correction of deviated nasal septum S/P wisdom tooth extraction Family History Uncle Family history of diabetes mellitus Mother Asthma Cardiac disorder Hypertension Cancer Aunt Cancer Breast cancer Social History Preferred Language: Singaporean Communication Ability: Effective Games Dealer Required: No Beliefs That Will Affect Care: None marital status: Current Living Situation: Spouse Other Information That Helps Us Care for You: No Feels Safe at Home: Yes Safety Concerns: Feels Safe At This Time Smoking Status: Former smoker Do You Dip or Chew Tobacco: No ; Second Hand Exposure: No ; Tobacco Cessation Education Requested by Patient: No Hx Alcohol Use: Yes Alcohol type: wine Hx Substance Use: No Review of Systems See HPI for pertinent positives & negatives. and A total of 10 systems reviewed and were otherwise negative Physical Exam Vital Signs Vital Signs - 24 hr 06/28/19 12:21 06/28/19 12:44 06/28/19 12:47 Temperature 36.4 C L Temperature Source Oral Pulse Rate - Lying Pulse Rate - Sitting Pulse Rate - Standing Pulse Rate 95 H 85 92 H Pulse Rate [Left Finger] Pulse Rate from SpO2 Sensor 86 Pulse Rhythm Regular Pulse Strength Normal Respiratory Rate 22 13 Respiratory Effort / Characteristics Non-Labored Respiratory Depth Normal Respiratory Pattern Regular Blood Pressure - Lying Blood Pressure - Sitting Blood Pressure- Standing Blood Pressure 182/98 H 161/91 H Blood Pressure [Left Arm] Blood Pressure Mean 126 128 Blood Pressure Mean [Left Arm] Blood Pressure Position Sitting Pulse Oximetry 98 99 100 Oxygen Delivery Method Room Air Room Air Sepsis Recent Fever Within 48 Hours No Sepsis Action Taken by Nursing No Action Required 06/28/19 12:51 06/28/19 12:53 06/28/19 12:55 Temperature Temperature Source Pulse Rate - Lying 86 Pulse Rate - Sitting 92 H Pulse Rate - Standing 98 H Pulse Rate 84 85 90 Pulse Rate [Left Finger] Pulse Rate from SpO2 Sensor 85 84 90 Pulse Rhythm Pulse Strength Respiratory Rate 16 15 14 Respiratory Effort / Characteristics Respiratory Depth Respiratory Pattern Blood Pressure - Lying 149/87 H Blood Pressure - Sitting 143/84 H Blood Pressure- Standing 157/95 H Blood Pressure 149/87 H 143/84 H Blood Pressure [Left Arm] Blood Pressure Mean 109 96 Blood Pressure Mean [Left Arm] Blood Pressure Position Pulse Oximetry 99 100 100 Oxygen Delivery Method Sepsis Recent Fever Within 48 Hours Sepsis Action Taken by Nursing 06/28/19 12:57 06/28/19 12:58 06/28/19 13:00 Temperature Temperature Source Pulse Rate - Lying Pulse Rate - Sitting Pulse Rate - Standing Pulse Rate 95 H 87 88 Pulse Rate [Left Finger] Pulse Rate from SpO2 Sensor 95 H 89 89 Pulse Rhythm Pulse Strength Respiratory Rate 18 25 H 22 Respiratory Effort / Characteristics Respiratory Depth Respiratory Pattern Blood Pressure - Lying Blood Pressure - Sitting Blood Pressure- Standing Blood Pressure 150/101 H 157/95 H Blood Pressure [Left Arm] Blood Pressure Mean 115 127 Blood Pressure Mean [Left Arm] Blood Pressure Position Pulse Oximetry 100 99 100 Oxygen Delivery Method Sepsis Recent Fever Within 48 Hours Sepsis Action Taken by Nursing 06/28/19 13:43 06/28/19 13:45 06/28/19 14:00 Temperature Temperature Source Pulse Rate - Lying Pulse Rate - Sitting Pulse Rate - Standing Pulse Rate 79 78 Pulse Rate [Left Finger] 88 Pulse Rate from SpO2 Sensor 79 79 Pulse Rhythm Pulse Strength Respiratory Rate 15 23 14 Respiratory Effort / Characteristics Respiratory Depth Respiratory Pattern Blood Pressure - Lying Blood Pressure - Sitting Blood Pressure- Standing Blood Pressure 147/92 H 143/90 H Blood Pressure [Left Arm] 147/92 H Blood Pressure Mean 108 116 Blood Pressure Mean [Left Arm] 110 Blood Pressure Position Pulse Oximetry 100 100 100 Oxygen Delivery Method Room Air Sepsis Recent Fever Within 48 Hours Sepsis Action Taken by Nursing 06/28/19 14:28 06/28/19 14:31 06/28/19 15:35 Temperature Temperature Source Pulse Rate - Lying Pulse Rate - Sitting Pulse Rate - Standing Pulse Rate 78 79 87 Pulse Rate [Left Finger] 80 Pulse Rate from SpO2 Sensor 79 79 Pulse Rhythm Pulse Strength Respiratory Rate 16 18 34 H Respiratory Effort / Characteristics Respiratory Depth Respiratory Pattern Blood Pressure - Lying Blood Pressure - Sitting Blood Pressure- Standing Blood Pressure 164/76 H 172/92 H Blood Pressure [Left Arm] 164/76 H Blood Pressure Mean 130 107 Blood Pressure Mean [Left Arm] 105 Blood Pressure Position Pulse Oximetry 100 100 Oxygen Delivery Method Room Air Sepsis Recent Fever Within 48 Hours Sepsis Action Taken by Nursing 06/28/19 15:37 06/28/19 15:38 06/28/19 16:00 Temperature Temperature Source Pulse Rate - Lying Pulse Rate - Sitting Pulse Rate - Standing Pulse Rate 88 89 Pulse Rate [Left Finger] 87 Pulse Rate from SpO2 Sensor 88 88 Pulse Rhythm Pulse Strength Respiratory Rate 20 22 19 Respiratory Effort / Characteristics Respiratory Depth Respiratory Pattern Blood Pressure - Lying Blood Pressure - Sitting Blood Pressure- Standing Blood Pressure 166/94 H Blood Pressure [Left Arm] 166/94 H Blood Pressure Mean 113 Blood Pressure Mean [Left Arm] 118 Blood Pressure Position Pulse Oximetry 100 97 97 Oxygen Delivery Method Sepsis Recent Fever Within 48 Hours Sepsis Action Taken by Nursing 06/28/19 16:01 Temperature Temperature Source Pulse Rate - Lying Pulse Rate - Sitting Pulse Rate - Standing Pulse Rate 91 H Pulse Rate [Left Finger] Pulse Rate from SpO2 Sensor 94 H Pulse Rhythm Pulse Strength Respiratory Rate 21 Respiratory Effort / Characteristics Respiratory Depth Respiratory Pattern Blood Pressure - Lying Blood Pressure - Sitting Blood Pressure- Standing Blood Pressure 162/99 H Blood Pressure [Left Arm] Blood Pressure Mean 126 Blood Pressure Mean [Left Arm] Blood Pressure Position Pulse Oximetry 94 Oxygen Delivery Method Sepsis Recent Fever Within 48 Hours Sepsis Action Taken by Nursing GENERAL: sitting up in bed, tearful, in mild distress, non-toxic EYE EXAM: normal conjunctiva, PERRL and EOM's intact OROPHARYNX: no exudate, no erythema, lips, buccal mucosa, and tongue normal and mucous membranes are moist NECK: supple, no nuchal rigidity, no adenopathy, non-tender LUNGS: Clear to auscultation. Normal chest wall mechanics HEART: no murmurs, S1 normal and S2 normal ABDOMEN: abdomen soft, non-tender, normo-active bowel sounds, no masses, no rebound or guarding. BACK: Back is symmetrical on inspection and there is no deformity, no midline tenderness, no CVA tenderness. SKIN: no rashes and no bruising UPPER EXTREMITIES: upper extremities are grossly normal. LOWER EXTREMITIES: No pitting edema. NEURO EXAM: Oriented to person place but not year, cranial nerves II-XII intact, normal speech, no weakness of arms, no weakness of legs. No drift. Finger to nose intact. Gross sensation intact. Ambulates without difficulty. Course Course ED COURSE: Vital signs were reviewed and showed hypertensive. The patients medical record was reviewed The above diagnostic studies were performed and reviewed. ED treatments and interventions as stated above. 1230: The patient was evaluated in room C1B. A complete history and physical examination was performed. 1514: I reevaluated and updated the patient on her case. 1526: I reviewed the patient's case with Dr. Pryor[facility]. Dr. Pryor will evaluate the patient for further management. Based on the patients age, coexisting illnesses, exam and lab findings the decision to treat as an inpatient was made. The patient remained stable while under my care. The patient will be evaluated for further management. Consultations Consultation #1: I reviewed the patient's case with Dr. Pryor-Hospitalist [facility]. Dr. Pryor will evaluate the patient for further management. Time: 15:26 Administered Medications Discontinued Medications Sodium Chloride (Nss 1000ml) 1,000 mls @ 999 mls/hr IV .Q1H1M [email or web address] Stop: 06/28/19 13:45 Last Infusion: 06/28/19 14:46 Dose: 0 mls/hr Documented by: [id number] Admin: 06/28/19 13:44 Dose: 999 mls/hr Documented by: [id number] Ceftriaxone Sodium (Rocephin) 1,000 mg in 50 mls @ 100 mls/hr IV NOW STA Stop: 06/28/19 15:53 Last Infusion: 06/28/19 16:29 Dose: 0 mls/hr Documented by: [id number] Admin: 06/28/19 15:37 Dose: 100 mls/hr Documented by: [id number] Sodium Chloride (Nss 1000ml) 1,000 mls @ 999 mls/hr IV .Q1H1M ONE Stop: 06/28/19 16:24 Last Infusion: 06/28/19 16:29 Dose: 0 mls/hr Documented by: [id number] Admin: 06/28/19 15:37 Dose: 999 mls/hr Documented by: [id number] Ioversol (Optiray 320 100ml) 94 ml IV ONCE PRN PRN Reason: Interaction Checking Stop: 07/02/19 14:44 Last Admin: 06/28/19 14:45 Dose: 94 ml Documented by: [id number] Medical Decision Making Differential Diagnosis Differential diagnoses includes but is not limited to toxic, metabolic, infectious, traumatic, cardiac, neurologic, hematologic, psychiatric and inflammatory etiologies. Medical Records Attestation: I reviewed the patient's medical records. Home Medications Current Medication List: was personally reviewed by me Laboratory Data Attestation: I reviewed the patient's lab results. Result diagrams: 06/28/19 13:12 06/28/19 13:12 Lab Results 06/28/19 06/28/19 06/28/19 Range/Units 12:45 12:45 13:12 WBC 6.94 (4.8-10.8) K/uL RBC 4.99 (4.2-5.4) M/uL Hgb 16.0 (12.0-16.0) g/dL Hct 47.4 H (37-47) % MCV 95.0 (80-100) fL MCH 32.1 (25-34) pg MCHC 33.8 (32-36) g/dL RDW Std Deviation 47.3 H (36.4-46.3) fL RDW Coeff of David 13.8 (11.5-14.5) % Plt Count 280 (130-400) K/uL MPV 10.9 H (7.4-10.4) fL Immature Gran % (Auto) 0.1 % Neut % (Auto) 61.5 % Lymph % (Auto) 26.2 % Rolette % (Auto) 10.2 % Eos % (Auto) 1.4 % Baso % (Auto) 0.6 % Immature Gran # (Auto) 0.01 (0.00-0.02) K/uL Neut # (Auto) 4.26 (1.4-6.5) K/uL Lymph # (Auto) 1.82 (1.2-3.4) K/uL Rolette # (Auto) 0.71 H (0.11-0.59) K/uL Eos # (Auto) 0.10 (0-0.5) K/uL Baso # (Auto) 0.04 (0-0.2) K/uL PT (9.0-12.0) Seconds INR (0.9-1.1) Sodium (136-145) mmol/L Potassium (3.5-5.1) mmol/L Chloride (98-107) mmol/L Carbon Dioxide (21-32) mmol/L Anion Gap (3-11) BUN (7-18) mg/dl Creatinine (0.6-1.2) mg/dl Est Cr Clr Drug Dosing ml/min Est GFR ( Amer) Est GFR (Non-Af Amer) BUN/Creatinine Ratio (10-20) Glucose (70-99) mg/dl Calcium (8.5-10.1) mg/dl Total Bilirubin (0.2-1) mg/dl AST (15-37) U/L ALT (12-78) U/L Alkaline Phosphatase (45-117) U/L Troponin I (0-0.045) ng/ml Total Protein (6.4-8.2) gm/dl Albumin (3.4-5.0) gm/dl Globulin (2.5-4.0) gm/dl Albumin/Globulin Ratio (0.9-2) Urine Color Yellow Urine Appearance Cloudy A (Clear) Urine pH 8.5 H (4.5-7.5) Ur Specific Brackney 1.016 (1.000-1.030) Urine Protein Negative (Negative) Urine Glucose (UA) Negative (Negative) Urine Ketones Negative (Negative) Urine Blood Negative (Negative) Urine Nitrite Negative (Negative) Urine Bilirubin Negative (Negative) Urine Urobilinogen Negative (Negative) Ur Leukocyte Esterase 3+ H (Negative) Urine WBC (Auto) >30 H (0-5) /hpf Urine RBC (Auto) 5-10 H (0-4) /hpf U Hyaline Cast (Auto) 0 (0-5) /lpf U Epithel Cells (Auto) >30 H (0-5) /lpf Urine Bacteria (Auto) 2+ H (Negative) Urine Opiates Screen Neg (Neg) Ur Methadone, Qual Neg (Neg) Urine Barbiturates Neg (Neg) Ur Phencyclidine (PCP) Neg (Neg) U Amphetamin/Meth Scrn Neg (Neg) MDMA (Ecstasy) Screen Neg (Neg) U Benzodiazepines Scrn Neg (Neg) Ur Cocaine Metabolite Neg (Neg) U Marijuana (THC) Screen Neg (Neg) 06/28/19 06/28/19 Range/Units 13:12 13:12 WBC (4.8-10.8) K/uL RBC (4.2-5.4) M/uL Hgb (12.0-16.0) g/dL Hct (37-47) % MCV (80-100) fL MCH (25-34) pg MCHC (32-36) g/dL RDW Std Deviation (36.4-46.3) fL RDW Coeff of David (11.5-14.5) % Plt Count (130-400) K/uL MPV (7.4-10.4) fL Immature Gran % (Auto) % Neut % (Auto) % Lymph % (Auto) % Rolette % (Auto) % Eos % (Auto) % Baso % (Auto) % Immature Gran # (Auto) (0.00-0.02) K/uL Neut # (Auto) (1.4-6.5) K/uL Lymph # (Auto) (1.2-3.4) K/uL Rolette # (Auto) (0.11-0.59) K/uL Eos # (Auto) (0-0.5) K/uL Baso # (Auto) (0-0.2) K/uL PT 10.9 (9.0-12.0) Seconds INR 1.1 (0.9-1.1) Sodium 142 (136-145) mmol/L Potassium 3.9 (3.5-5.1) mmol/L Chloride 111 H (98-107) mmol/L Carbon Dioxide 26 (21-32) mmol/L Anion Gap 5.0 (3-11) BUN 16 (7-18) mg/dl Creatinine 0.99 (0.6-1.2) mg/dl Est Cr Clr Drug Dosing 50.6 ml/min Est GFR ( Amer) 63.7 Est GFR (Non-Af Amer) 55.0 BUN/Creatinine Ratio 15.7 (10-20) Glucose 83 (70-99) mg/dl Calcium 9.6 (8.5-10.1) mg/dl Total Bilirubin 1.1 H (0.2-1) mg/dl AST 39 H (15-37) U/L ALT 55 (12-78) U/L Alkaline Phosphatase 99 (45-117) U/L Troponin I < 0.015 (0-0.045) ng/ml Total Protein 7.2 (6.4-8.2) gm/dl Albumin 3.6 (3.4-5.0) gm/dl Globulin 3.6 (2.5-4.0) gm/dl Albumin/Globulin Ratio 1.0 (0.9-2) Urine Color Urine Appearance (Clear) Urine pH (4.5-7.5) Ur Specific Brackney (1.000-1.030) Urine Protein (Negative) Urine Glucose (UA) (Negative) Urine Ketones (Negative) Urine Blood (Negative) Urine Nitrite (Negative) Urine Bilirubin (Negative) Urine Urobilinogen (Negative) Ur Leukocyte Esterase (Negative) Urine WBC (Auto) (0-5) /hpf Urine RBC (Auto) (0-4) /hpf U Hyaline Cast (Auto) (0-5) /lpf U Epithel Cells (Auto) (0-5) /lpf Urine Bacteria (Auto) (Negative) Urine Opiates Screen (Neg) Ur Methadone, Qual (Neg) Urine Barbiturates (Neg) Ur Phencyclidine (PCP) (Neg) U Amphetamin/Meth Scrn (Neg) MDMA (Ecstasy) Screen (Neg) U Benzodiazepines Scrn (Neg) Ur Cocaine Metabolite (Neg) U Marijuana (THC) Screen (Neg) Imaging Data Radiologist's Impression: Radiology results as stated below per my review and the radiologist's interpretation: XR chest 1V portable CLINICAL HISTORY: 78 years-old Female presenting with ams. TECHNIQUE: Portable upright AP view of the chest was obtained. COMPARISON: 04/05/2019. FINDINGS: Atherosclerosis of the aortic arch. Cardiac silhouette enlarged. Lungs are hyperinflated. Decreased right basilar opacity. Persistent blunting of the left costophrenic angle. No large effusion or pneumothorax. Osteopenia may be present. Moderate dextroscoliosis with extensive thoracolumbar pablo fixation. Upper abdomen normal. IMPRESSION: 1. Decreased right basilar atelectasis in comparison to prior. 2. No new focal infiltrate to suggest pneumonia. ACT 112: Negative or not required by law. Electronically signed by: Randy Gilmore M.D. 06/28/2019 1:[address] OF THE HEAD WITHOUT CONTRAST CLINICAL HISTORY: Altered mental status. COMPARISON STUDY: Head CT October 07, 2013. MRI of the brain May 27, 2015. TECHNIQUE: Helical axial images of the head were obtained without IV contrast. Automated exposure control was utilized for the study. A dose lowering technique was utilized adhering to the principles of ALARA. FINDINGS: No acute intracranial hemorrhage, midline shift or mass effect is present. Mild ventricular dilatation is due to atrophy. Basilar cisterns are patent. White matter hypodensity suggests small vessel disease. There are no findings to suggest acute dural sinus thrombosis or acute territorial infarct. There are no significant calvarial abnormalities. There is trace fluid within the right mastoid air cells. IMPRESSION: No acute intracranial findings. ACT 112: Negative or not required by law. Electronically signed by: Ari Evangelista M.D. 06/28/2019 2:[address] OF THE ABDOMEN AND PELVIS WITH CONTRAST CLINICAL HISTORY: Abdominal pain and confusion. COMPARISON STUDY: CT of the abdomen and pelvis May 28, 2015. TECHNIQUE: Following IV administration of 94 mL of Optiray-320, axial images of the abdomen and pelvis were obtained from the lung bases to the proximal femurs. Images were reviewed in the axial, sagittal, and coronal planes. IV contrast was administered without complication. Automated exposure control was utilized for the study. A dose lowering technique was utilized adhering to the principles of ALARA. CT DOSE: 2387.33 mGy.cm FINDINGS: Scoliosis hardware is noted. No pneumatosis, free air or portal venous gas is present. There is fatty infiltration of the liver. No hepatic lesions are present. There is no biliary or pancreatic ductal dilatation. A diverticulum of the third portion the duodenum is noted. The spleen, adrenal glands and pancreas are unremarkable. A few large left renal cysts measure up to 7.4 cm. Multiple left renal calculi measure up to 7 mm. There are no ureteral calculi. There is no hydronephrosis or hydroureter. There is no evidence for a bowel obstruction. There is colonic diverticulosis without evidence for acute diverticulitis. The appendix is normal. There is no lymphadenopathy or ascites. No acute lumbar spine or pelvic fractures identified. Caliber and wall thickness of small and large bowel are normal. There is moderate plaque of the abdominal aorta which is normal in caliber. IMPRESSION: 1. No acute process within the abdomen or pelvis. 2. Left-sided nephrolithiasis. No ureteral calculi or hydronephrosis. Two large left renal cysts. 3. Colonic diverticulosis without evidence for acute diverticulitis. Normal appendix. No bowel obstruction. 4. Fatty infiltration of the liver. ACT 112: Negative or not required by law. Electronically signed by: Ari Evangelista M.D. 06/28/2019 3:05 PM ECG Data Attestation: I personally reviewed and interpreted this ECG as follows: Indication: + altered mental status Rate (beats per minute): 85 Rhythm: + normal sinus ECG Intervals/blocks: + Normal QT-c ECG [place]cano: + Normal ECG Findings: no PVCs Blood Pressure Blood Pressure Findings: Elevated blood pressure Blood Pressure Disposition: Referred to patients primary care provider MEGAN Narrative Patient is a 78-year-old female with a past medical history of sepsis and metabolic encephalopathy that presents the ER referred in by PCP for confusion. Patient over the past month has been intermittently confused more so today than the previous 4 days. She is not oriented to place and sometimes does not know who her is and believes that there is other people in the house. Patient declines all other complaints. Completely neurologically intact. IV was established blood work was obtained and showed no significant leukocytosis or anemia. INR unremarkable. BMP with a slightly elevated chloride. LFTs bilirubin troponin was unremarkable. UA did have leukocytes, greater than 30 white cells and bacteria but was contaminated with epithelial cells. She had no head or neck pain. No nuchal rigidity. Chest x-ray as well as CT head and CT a bdomen pelvis showed no acute pathology. Patient and family were updated at bedside. Patient was given IV fluids IV Rocephin. Question if the confusion is related to UTI versus other metabolic etiologies. Does not appear to be consistent with dementia as this has been a rapid decline over the past month intermittently. Patient was discussed with the hospitalist for further evaluation. Impression & Plan Acute UTI, Acute confusion, High serum chloride, High serum bilirubin level Discharge Plan Visit Data *Final* Discharge Date/Time: 06/28/19 17:20 Chief Complaint: Anxiety Stated Complaint: CRYING, ANXIETY, DEPRESSION ED Provider: Yazan Figueredo Discharge Problem: Acute UTI, Acute confusion, High serum chloride, High serum bilirubin level Patient Disposition: Admitted As Inpatient Discharge Instructions Interventions: ED Discharge Assessment Last Done: 06/28/19 17:20 The scribe's documentation has been prepared under my direction and personally reviewed by me in its entirety. I confirm that the note above accurately reflects all work, treatment, procedures, and medical decision making performed by me.
[2019-06-28] MEDS: MONTELUKAST SODIUM 10 MG TABLET PO SCH (20:39)
[2019-06-28] MEDS: ENOXAPARIN INJ 40 MG/0.4 ML SYR SQ SCH (20:40)
[2019-06-28] MEDS: ATORVASTATIN 10 MG TAB PO SCH (20:40)
[2019-06-29] MEDS: LEVOTHYROXINE SODIUM 75 MCG TABLET PO SCH (06:27)
[2019-06-29] MEDS: NSS + 20MEQ KCL 20 MEQ/1,000 ML BAG IV SCH (06:27)
[2019-06-29 07:50] LABS: Basophils # (auto) 0.06 K/uL (0-0.2); Basophils % (auto) 1.2 %; Eosinophils # (auto) 0.18 K/uL (0-0.5); Eosinophils % (auto) 3.5 %; Hemoglobin 15.5 g/dL (12.0-16.0); Lymphocytes # (auto) 1.91 K/uL (1.2-3.4); Lymphocytes % (auto) 37.3 %; Mean Corpuscular Hemoglobin 31.3 pg (25-34); Mean Corpuscular Hgb Conc 33.7 g/dL (32-36); Mean Corpuscular Volume 92.7 fL (80-100); Mean Platelet Volume 11.1 fL (7.4-10.4); Monocytes # (auto) 0.54 K/uL (0.11-0.59); Monocytes % (auto) 10.5 %; Neutrophils # (auto) 2.43 K/uL (1.4-6.5); Neutrophils % (auto) 47.5 %; Platelet Count 263 K/uL (130-400); RDW Coefficient of Variation 13.9 % (11.5-14.5); Red Blood Count 4.96 M/uL (4.2-5.4); White Blood Count 5.12 K/uL (4.8-10.8)
[2019-06-29] MEDS: CHOLECALCIFEROL 1,000 UNITS TAB PO SCH (07:58)
[2019-06-29] MEDS: PANTOprazole 40 MG TAB PO SCH (07:58)
[2019-06-29] MEDS: VENLAFAXINE HCL XR 75 MG CAPXR PO SCH (07:58)
[2019-06-29 08:20] LABS: Albumin Level 3.6 gm/dl (3.4-5.0); BUN Creatinine Ratio 14.9 (10-20); Calcium 9.2 mg/dl (8.5-10.1); Creatinine Clr Calc Pharmacy 60.8 ml/min; Est GFR (African American) 78.8; Potassium 3.9 mmol/L (3.5-5.1)
[2019-06-29 08:21] LABS: Estimated Average Glucose 120 mg/dl; Hemoglobin A1C 5.8 % (4.5-5.6)
[2019-06-29 08:31] LABS: Albumin Globulin Ratio 1.1 (0.9-2); Bilirubin,Total 0.8 mg/dl (0.2-1); Globulin 3.2 gm/dl (2.5-4.0); Thyroid Stimulating Hormone 1.69 uIu/ml (0.300-4.500); Total Protein 6.8 gm/dl (6.4-8.2)
[2019-06-29] MEDS ORDERED: cefTRIAXone SODIUM 2,000 MG in DEXTROSE 5% 50 ML IV SCH (15:00)
--- NOTE | 2019-06-29 15:06 | Hospitalist Progress Note ---
Date of Service June 29, 2019 Assessment & Plan (1) Acute UTI: downgrade to medical floor continue Rocephin urine culture growing GNR, she has grown E coli in the past that was sensitive WBC normal, no fever likely d/c tomorrow on PO antibiotic (2) Acute confusion: metabolic encephalopathy due to UTI improved/resolved today CT of the head showed no acute intracranial findings. (3) Hyperlipidemia: continue Lipitor (4) Hypothyroidism (acquired): TSH 1.69. Continue levothyroxine 75 MCG's p.o. every morning. (5) Nephrolithiasis: No hydronephrosis. No issues at this time. (6) Depression: Patient has impaired short-term memory and long-term memory This situation makes her sad but patient is not suicidal. Continue venlafaxine 75 mg p.o. daily, (7) Asthma: Continue montelukast 10 mg p.o. nightly, albuterol HFA 2 puffs every 4 hours as needed. (8) GERD (gastroesophageal reflux disease): Continue omeprazole 20 mg p.o. daily. (9) Elevated blood pressure reading: not on any BP medications at home BP are all quite elevated start on Norvasc today, watch response Subjective patient sitting up at edge of bed feeling well, just not much of an appetite no chest pain, no cough, no dyspnea, no GI symptoms, no fever reviewed labs, CBC and BMP normal urine culture growing GNR already, responding well to Rocephin as she is more alert than on arrival updated at the bedside BP up quite high at times, Systolic in 160-170s not on BP medications, but pressure up the entire visit will give a dose of Norvasc 5mg and see how she responds, may need to continue on discharge will get PT/OT Review of Systems Review of Systems: All systems reviewed & are unremarkable except as noted in HPI & below Physical Exam Constitutional: WD/WN, vitals as above Eyes: PERRL, conjunctivae normal, anicteric sclerae ENMT: external ear and nose normal, oropharynx normal Neck: trachea midline, no thyromegaly Respiratory: normal respiratory effort, lungs clear to auscultation Cardiovascular: RRR, no murmur, no edema Gastrointestinal (Abdomen): normal bowel sounds, soft, nontender, no hepatosplenomegaly Musculoskeletal: no cyanosis or clubbing, extremities motor strength 5/5 Skin: no rashes, warm and dry Neurologic: patellar DTR's 2+ bilat, sensation intact and PERRL, EOMI, a ccommodation nl, no face palsy, no dysarthria Psychiatric: Orientation: alert, oriented to person and oriented to place; + not oriented to time Lymphatic: no cervical or axillary lymphadenopathy Results & Data Vital Signs (Past 12 Hours) Vital Signs Temp Pulse Pulse Resp BP Pulse Ox 06/29/19 11:24 36.4 C L 106 H 18 170/79 H 98 06/29/19 07:27 92 H 20 144/84 H 98 06/29/19 07:14 92 H 06/29/19 04:00 36.7 C 81 20 155/84 H 96 Laboratory Results Laboratory Results - last 24 hr 06/28/19 06/29/19 06/29/19 13:22 07:25 07:25 WBC 5.12 RBC 4.96 Hgb 15.5 Hct 46.0 MCV 92.7 MCH 31.3 MCHC 33.7 RDW Std Deviation 47.0 H RDW Coeff of David 13.9 Plt Count 263 MPV 11.1 H Immature Gran % (Auto) 0.0 Neut % (Auto) 47.5 Lymph % (Auto) 37.3 [place] % (Auto) 10.5 Eos % (Auto) 3.5 Baso % (Auto) 1.2 Immature Gran # (Auto) 0.00 Neut # (Auto) 2.43 Lymph # (Auto) 1.91 [place] # (Auto) 0.54 Eos # (Auto) 0.18 Baso # (Auto) 0.06 Sodium 144 Potassium 3.9 Chloride 115 H Carbon Dioxide 21 Anion Gap 8.0 BUN 12 Creatinine 0.83 Est Cr Clr Drug Dosing 60.8 Est GFR ( Amer) 78.8 Est GFR (Non-Af Amer) 68.0 BUN/Creatinine Ratio 14.9 Glucose 90 Estimat Average Glucose Hemoglobin A1c Calcium 9.2 Total Bilirubin 0.8 AST 29 ALT 48 Alkaline Phosphatase 99 Total Protein 6.8 Albumin 3.6 Globulin 3.2 Albumin/Globulin Ratio 1.1 Triglycerides 73 Cholesterol 183 LDL Cholesterol, Calc 96 VLDL Cholesterol, Calc 15 HDL Cholesterol 72 Cholesterol/HDL Ratio 3 Procalcitonin < 0.05 TSH 1.690 06/29/19 07:25 WBC RBC Hgb Hct MCV MCH MCHC RDW Std Deviation RDW Coeff of David Plt Count MPV Immature Gran % (Auto) Neut % (Auto) Lymph % (Auto) [place] % (Auto) Eos % (Auto) Baso % (Auto) Immature Gran # (Auto) Neut # (Auto) Lymph # (Auto) [place] # (Auto) Eos # (Auto) Baso # (Auto) Sodium Potassium Chloride Carbon Dioxide Anion Gap BUN Creatinine Est Cr Clr Drug Dosing Est GFR ( Amer) Est GFR (Non-Af Amer) BUN/Creatinine Ratio Glucose Estimat Average Glucose 120 Hemoglobin A1c 5.8 H Calcium Total Bilirubin AST ALT Alkaline Phosphatase Total Protein Albumin Globulin Albumin/Globulin Ratio Triglycerides Cholesterol LDL Cholesterol, Calc VLDL Cholesterol, Calc HDL Cholesterol Cholesterol/HDL Ratio Procalcitonin TSH Microbiology 06/28/19 12:45 Urine,Clean Catch Urine Culture - Preliminary Gram negative bacilli Medications Administered Current Inpatient Medications Acetaminophen (Tylenol) 650 mg PO Q4H PRN PRN Reason: Pain or Fever Stop: 07/28/19 17:51 Al Hydrox/Mg Hydrox/Simethicone (Maalox) 15 ml PO Q4H PRN PRN Reason: Dyspepsia Stop: 07/28/19 17:51 Albuterol (Ventolin Hfa) 2 puffs INH Q4 PRN PRN Reason: SHORTNESS OF BREATH/WHEEZING Stop: 07/28/19 18:01 Amlodipine Besylate (Norvasc) 5 mg PO QAM [facility] Stop: 07/29/19 15:29 Artificial Tears (Artificial Tears) 1 drops OP DAILY PRN PRN Reason: DRY EYES Stop: 07/28/19 18:02 Atorvastatin Calcium (Lipitor) 10 mg PO HS [facility] Stop: 07/28/19 20:59 Last Admin: 06/28/19 20:40 Dose: 10 mg Documented by: Enoxaparin Sodium (Lovenox) 40 mg SQ Q24H JASMYNE Stop: 07/28/19 19:59 Last Admin: 06/28/19 20:40 Dose: 40 mg Documented by: Ceftriaxone Sodium 2,000 mg/ (Dextrose) 70 mls @ 100 mls/hr IV Q24H JASMYNE; Protocol Stop: 07/04/19 14:59 Last Admin: 06/29/19 15:04 Dose: 100 mls/hr Documented by: Ketoconazole (Nizoral 2%) 1 appln EXT Q3D PRN PRN Reason: SCALP ITCHING Stop: 07/28/19 18:13 Levothyroxine Sodium (Synthroid) 75 mcg PO DAILYBB JASMYNE Stop: 07/29/19 06:29 Last Admin: 06/29/19 06:27 Dose: 75 mcg Documented by: Magnesium Hydroxide (Milk Of Magnesia) 30 ml PO Q12H PRN PRN Reason: Constipation Stop: 07/28/19 17:51 Miscellaneous (Order Awaiting Action) 1 ea N/A QS JASMYNE Stop: 07/29/19 00:00 Last Admin: 06/29/19 15:08 Dose: Not Given Documented by: Montelukast Sodium (Singulair) 10 mg PO HS JASMYNE Stop: 07/28/19 20:59 Last Admin: 06/28/19 20:39 Dose: 10 mg Documented by: Pantoprazole Sodium (Protonix) 40 mg PO DAILY JASMYNE Stop: 07/29/19 08:59 Last Admin: 06/29/19 07:58 Dose: 40 mg Documented by: Polyethylene Glycol (Miralax Powder Packet) 17 gm PO DAILY PRN PRN Reason: Constipation Stop: 07/28/19 17:51 Venlafaxine HCl (Effexor Extended Release) 75 mg PO DAILY JASMYNE Stop: 07/29/19 08:59 Last Admin: 06/29/19 07:58 Dose: 75 mg Documented by: Vitamin D (Vitamin D3) 1,000 units PO DAILY JASMYNE Stop: 07/29/19 08:59 Last Admin: 06/29/19 07:58 Dose: 1,000 units Documented by: PG Care Time/CCT Total # of Minutes Spent Total Time Spent with Patient: Total time spent is greater than 50% in coordination of care (as documented) at patient's floor/unit and/or counseling patient:
[2019-06-29] MEDS: AMLODIPINE BESYLATE 5 MG TAB PO SCH (15:40)
[2019-06-29] MEDS: ATORVASTATIN 10 MG TAB PO SCH (19:46)
[2019-06-29] MEDS: MONTELUKAST SODIUM 10 MG TABLET PO SCH (19:47)
[2019-06-29] MEDS: ENOXAPARIN INJ 40 MG/0.4 ML SYR SQ SCH (19:47)
[2019-06-29 23:03] VITALS: TEMP 98.1; O2SAT 95
[2019-06-30] MEDS: LEVOTHYROXINE SODIUM 75 MCG TABLET PO SCH (05:45)
[2019-06-30 06:02] LABS: Basophils # (auto) 0.04 K/uL (0-0.2); Basophils % (auto) 0.8 %; Eosinophils # (auto) 0.27 K/uL (0-0.5); Eosinophils % (auto) 5.3 %; Hemoglobin 14.7 g/dL (12.0-16.0); Lymphocytes # (auto) 1.86 K/uL (1.2-3.4); Lymphocytes % (auto) 36.3 %; Mean Corpuscular Hemoglobin 32.6 pg (25-34); Mean Corpuscular Volume 93.1 fL (80-100); Mean Platelet Volume 11.2 fL (7.4-10.4); Monocytes # (auto) 0.67 K/uL (0.11-0.59); Monocytes % (auto) 13.1 %; Neutrophils # (auto) 2.29 K/uL (1.4-6.5); Neutrophils % (auto) 44.5 %; Platelet Count 256 K/uL (130-400); RDW Coefficient of Variation 13.7 % (11.5-14.5); RDW Standard Deviation 46.7 fL (36.4-46.3); Red Blood Count 4.51 M/uL (4.2-5.4); White Blood Count 5.13 K/uL (4.8-10.8)
[2019-06-30 06:43] LABS: Albumin Level 3.4 gm/dl (3.4-5.0); BUN Creatinine Ratio 15.6 (10-20); Calcium 8.9 mg/dl (8.5-10.1); Creatinine Clr Calc Pharmacy 58.7 ml/min; Est GFR (African American) 75.5; Est GFR (Non-African American) 65.2; Potassium 3.5 mmol/L (3.5-5.1)
[2019-06-30 06:46] LABS: Albumin Globulin Ratio 1.1 (0.9-2); Bilirubin,Total 0.8 mg/dl (0.2-1); Globulin 3.2 gm/dl (2.5-4.0); Total Protein 6.6 gm/dl (6.4-8.2)
[2019-06-30] MEDS: AMLODIPINE BESYLATE 5 MG TAB PO SCH (08:18)
[2019-06-30] MEDS: CHOLECALCIFEROL 1,000 UNITS TAB PO SCH (08:18)
[2019-06-30] MEDS: PANTOprazole 40 MG TAB PO SCH (08:18)
[2019-06-30] MEDS: VENLAFAXINE HCL XR 75 MG CAPXR PO SCH (08:18)
--- NOTE | 2019-06-30 09:48 | Discharge Summary ---
Date of Service June 30, 2019 Admission HPI Per Admitting Provider Patient is a 78 years old female with past medical history of depression, osteoarthritis, nephrolithiasis, restrictive lung disease, dyslipidemia, GERD, hypothyroidism, hyperlipidemia, who presents to the emergency room with a complaint of worsening confusion over the past month according to the patient's . He states that patient has intermittent episodes of confusion and confusion is worsening in the past 3 to 4 days. Patient states that patient has memory loss, forgets who she is, forgets the name of her date of etc. The also reports that patient states she will see ot her people in the house even though they are not not actually there. In the ER patient is oriented only in person. Patient is not able to recall the name of the place not not the time of the year. Patient is not able to recall her date of birthday. The patient denies fever, chills, chest pain, shortness of breath, frequency, urgency, diarrhea, urinary symptoms or abdominal pain. Patient also denies weakness or numbness in her arms and legs as well as she denies cough or rhinorrhea. WBC 6.94, hemoglobin 16, hematocrit 47.4, platelets 280, PT 10.9, INR 1.1,PT 9.9, INR 1, APTT 29.9,. 2 she has, started sodium 142, potassium 3.9, chloride 111, BUN 16, creatinine 0.99, GFR 55, total bili 1.1, AST 39, ALT 55, troponin 0.015, albumin 3.6, globulin 3.6, procalcitonin 0.05, TSH done in April 0.422. Urinalysis shows cloudy urine, with 3+ leukocyte esterase and over 30 WBCs, urine bacteria 2+, urine tox screen negative. Chest x-rays decreased right basilar atelectasis in comparison to prior. No new focal infiltrate to suggest pneumonia. Head CT no acute intracranial findings. CT abdomen and pelvis with contrast shows no acute process within the abdomen or pelvis. Left-sided nephrolithiasis. No ureteral calculus or hydronephrosis. 2 large left renal cyst. Colonic diverticulosis without evidence of acute diverticulitis. Normal appendix. No bowel obstruction. Fatty infiltration of the liver. Decision was made to admit patient for observation to [facility] [place] with telemetry for urinary tract infection and and acute on chronic confusion. Principal Diagnosis Metabolic encephalopathy due to UTI Discharge Exam Constitutional WD/WN, vitals as above Eyes PERRL, conjunctivae normal, anicteric sclerae ENMT external ear and nose normal, oropharynx normal Neck trachea midline, no thyromegaly Respiratory normal respiratory effort, lungs clear to auscultation Cardiovascular RRR, no murmur, no edema Gastrointestinal (Abdomen) normal bowel sounds, soft, nontender, no hepatosplenomegaly Musculoskeletal no cyanosis or clubbing, extremities motor strength 5/5 Skin no rashes, warm and dry Neurologic patellar DTR's 2+ bilat, sensation intact and PERRL, EOMI, accommodation nl, no face palsy, no dysarthria Psychiatric Orientation: alert, oriented to person, oriented to place and oriented to time Lymphatic no cervical or axillary lymphadenopathy Discharge Data Allergies Allergy/AdvReac Type Severity Reaction Status Date / Time doxycycline Allergy Mild itchy;red Verified 07/06/19 10:01 skin estrogens, conjugated Allergy Mild RASH Verified 07/06/19 10:01 perfume Allergy Mild Sneezing Verified 07/06/19 10:01 pollen extracts Allergy Mild Sneezing Verified 07/06/19 10:01 Sulfa (Sulfonamide Allergy Mild RASH Verified 07/06/19 10:01 Antibiotics) adhesive AdvReac Mild skin Verified 07/06/19 10:01 irritation INHALERS Allergy Intermediate THRUSH IN Uncoded 06/28/19 13:45 MOUTH Consultations 06/28/19 15:34 ED Decision to Admit Stat Ordered Studies 06/28/19 12:38 CT head/brain wo con Stat 06/28/19 13:12 CT abd pelvis IV con only Stat Hospital Course (1) Metabolic encephalopathy: due to E coli UTI resolved within 24 hours of antibiotics AAOX3 on discharge, calm and cooperative (2) Acute UTI: treated with Rocephin urine culture grew E coli, swenson sensitive WBC normal, no fever d/c home on Keflex follow up with PCP (3) Elevated blood pressure reading: not on any BP medications at home BP are all quite elevated good response to Norvasc will leave it up to patient if she wants to wait and take once discussing with her PCP script provided for Norvasc 5mg daily (4) Hyperlipidemia: continue Lipitor (5) Hypothyroidism (acquired): TSH 1.69. Continue levothyroxine 75 MCG's p.o. every morning. (6) Nephrolithiasis: No hydronephrosis. No issues at this time. (7) Depression: Patient has impaired short-term memory and long-term memory This situation makes her sad but patient is not suicidal. Continue venlafaxine 75 mg p.o. daily, (8) Asthma: Continue montelukast 10 mg p.o. nightly, albuterol HFA 2 puffs every 4 hours as needed. (9) GERD (gastroesophageal reflux disease): Continue omeprazole 20 mg p.o. daily. Total Time Total Time Spent Total Time Spent (In Minutes): 31 minutes Total Time Includes: Examination of the Patient, Discharge Planning and Medication Reconciliation Discharge Plan Discharge Items Patient Disposition: Home - Self-Care Reason For Visit: CONFUSION,UTI Discharge Diagnosis: UTI - E coli Altered mental status due to UTI Condition on Discharge: Good Goals: complete course of antibiotics stay well hydrated, well nourished improve strength and mobility Activity: Resume your previous activity Non-emergency contact: Primary Care Provider Call non-emergency contact if: you have any medication questions, your symptoms worsen and you have a fever Follow-up/Referrals: Florian Dobbins MD [Primary Care Provider] - Diet: Regular Addtl Attending Provider Instructions: Medications: - KEFLEX: 500mg twice a day for total of 10 days, script sent to pharmacy, start taking this evening (06/30) - AMLODIPINE: 5mg daily, started because all of your blood pressures were very high Acute confusion due to UTI urine culture grew E coli, sensitive to cephalosporins received Rocephin IV while admitted, convert to Keflex for 8 more days on discharge get rest, stay well hydrated and well nourished Elevated blood pressures all of your blood pressures were elevated, no documented history of hypertension gave you a dose of Norvasc and blood pressure improved recommend that you continue to take on discharge until seen by Dr. Dobbins in office get blood pressure check in the office recommend you call Dr. Dobbins for follow up in one week Pending Studies at Discharge: No Stand-Alone Forms: [employer], Smoking Cessation Medications and DC Order Prescriptions: New amlodipine [Norvasc] 5 mg Tablet 5 mg PO QAM 30 Days Qty: 30 RF: 1 cephalexin [Keflex] 500 mg capsule 500 mg PO BID 8 Days Qty: 16 RF: 0 Continued amoxicillin 500 mg capsule 500 mg PO DIRECTED RF: 0 Systane Balance 0.6 % drops 1 drops OP DAILY PRN (Reason: Dry Eye(S)) RF: 0 acetaminophen [Tylenol] 325 mg tablet 325 mg PO Q6H PRN (Reason: Pain) RF: 0 atorvastatin 10 mg tablet 10 mg PO HS Qty: 90 RF: 3 levothyroxine 75 mcg tablet 75 mcg PO QAM Qty: 90 RF: 3 montelukast [Singulair] 10 mg tablet 10 mg PO HS Qty: 90 RF: 3 venlafaxine [Effexor XR] 75 mg capsule,extended release 24hr 75 mg PO DAILY Qty: 90 RF: 3 ketoconazole 1 % Shampoo 1 applic TOPICAL Q3D PRN (Reason: SCALP ITCHING) RF: 0 clobetasol 0.05 % cream 1 applic TOPICAL WEEKLY RF: 0 cholecalciferol (vitamin D3) 25 mcg (1,000 unit) Tablet 1,000 unit PO DAILY RF: 0 albuterol sulfate [ProAir HFA] 90 mcg/actuation HFA aerosol inhaler 2 puffs INH Q4 PRN (Reason: shortness of breath or wheezing) RF: 0 No Action famotidine 40 mg tablet 40 mg PO DAILY RF: 0 Discharge Orders: Discharge Order (Routine); Ordered 06/30/19 Ordered By: Jaswinder Neves Admission Data Admit Date/Time: 06/28/19 16:56 Attending Provider: Jaswinder Neves Admit Provider: Manjit Pryor Primary Care Provider: Florian Dobbins Other Providers: Manjit Pryor Other Interventions: Discharge Summary Assessment (RN) Last Done: 06/30/19 09:49 DC Date/Time DO NOT enter until pt leaves facility: 06/30/19 10:41
[2019-06-30 09:50] VITALS: BP 170/79; PULSE 87
== END 2019-06-30 10:41 | disposition home or self-care (01) ==
LOC: 2N 12:16 → ED 12:16 → SUATTDRO 16:56 → 2N 17:20 → 4W 06-29 15:14
DX: F32.9 Major depressive disorder, single episode, unspecified; G93.41 Metabolic encephalopathy; Z98.1 Arthrodesis status; Z88.2 Allergy status to sulfonamides; E78.5 Hyperlipidemia, unspecified; Z79.899 Other long term (current) drug therapy; K21.9 Gastro-esophageal reflux disease without esophagitis; N39.0 Urinary tract infection, site not specified; E03.9 Hypothyroidism, unspecified; R03.0 Elevated blood-pressure reading, without diagnosis of hypertension; J45.909 Unspecified asthma, uncomplicated; M41.9 Scoliosis, unspecified; M19.90 Unspecified osteoarthritis, unspecified site

== ENCOUNTER 2023-06-06 07:36 | Inpatient (IN) ==
--- NOTE | 2023-06-06 07:48 | Emergency Department Note ---
ED Provider Note History of Present Illness Chief Complaint: Flank Pain Stated Complaint: LEFT FLANK PAIN,HX KIDNEY STONES Time Seen by Provider: 06/06/23 07:47 Majority of history was obtained from the due to patient's underlying dementia This is an 82-year-old female with a history of dementia, kidney stones, reflux, accompanied by her , who presents to the emergency department with acute left low back pain that began earlier this morning at about 4:30 AM. states yesterday she was fine, was eating and drinking with no difficulty, and when she woke up she was crying stating that her left low back was hurting. Patient denies any nausea or vomiting. She cannot state if she has abdominal pain or not. Per she has not had any diarrhea. Has not seemed like she had a fever. Has not received anything for pain medication yet. states that patient "does a lot of crying" at baseline. Was treated for UTI 2 weeks ago with oral antibiotics. No increasing confusion lately Home Medications Medication Instructions Recorded Confirmed Type acetaminophen 325 mg tablet 325 mg PO Q6H PRN Pain 03/01/19 06/06/23 History (Tylenol) cholecalciferol (vitamin D3) 25 25 mcg PO DAILY 11/13/21 06/06/23 History mcg (1,000 unit) capsule amoxicillin 500 mg tablet 2,000 mg (4 x 500 mg) PO 12/28/22 06/06/23 Rx DIRECTED PRN DENTAL PROCEDURE #4 tabs atorvastatin 10 mg tablet 10 mg PO HS #90 tabs 01/13/23 06/06/23 Rx losartan 100 mg tablet 100 mg PO QAM #90 tabs 01/13/23 06/06/23 Rx pantoprazole 40 mg tablet,delayed 40 mg PO DAILY #90 tabs 04/07/23 06/06/23 Rx release venlafaxine 75 mg capsule,extended 75 mg PO QAM #90 caps 04/07/23 06/06/23 Rx release 24 hr (Effexor XR) ipratropium bromide 42 mcg (0.06 2 spray intranasal .COMPLEX #15 mL 05/07/23 06/06/23 Rx %) nasal spray donepezil 5 mg tablet 5 mg PO DAILY #30 tabs 05/27/23 06/06/23 Rx levothyroxine 75 mcg tablet 75 mcg PO QAM 06/06/23 06/06/23 History montelukast 10 mg tablet 10 mg PO HS 06/06/23 06/06/23 History Allergies Allergy/AdvReac Type Severity Reaction Status Date / Time adhesive Allergy Mild Skin Verified 06/06/23 10:40 irritation doxycycline Allergy Mild Red skin, Verified 06/06/23 10:40 itchy estrogens, conjugated Allergy Mild Rash Verified 06/06/23 10:40 perfume Allergy Mild Sneezing Verified 06/06/23 10:40 pollen extracts Allergy Mild Sneezing Verified 06/06/23 10:40 Sulfa (Sulfonamide Allergy Mild Rash Verified 06/06/23 10:40 Antibiotics) Past Med/Surg History Medical History Hx of vertigo Kidney stone Right ureteral calculus Depression Hypertension Hyperlipidemia Asthma Stable Renal cyst History of herpes labialis Epidermal cyst Osteoarthritis Scoliosis H/O carcinoma in situ of skin s/p excision Hiatal hernia Osteoporosis DDD (degenerative disc disease), thoracolumbar GERD (gastroesophageal reflux disease) Controlled 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 Surgical History History of esophagogastroduodenoscopy (EGD) History of lithotripsy Left ESWL (01/31/21): LMA#4, atraumatic at [facility] [place]/O breast biopsy S/P correction of deviated nasal septum S/P wisdom tooth extraction History of cataract surgery R/L Fusion of spine Lumbar History of colonoscopy History of herniorrhaphy R/L inguinal History of tooth extraction Family History Uncle Family history of diabetes mellitus Mother Asthma Cardiac disorder Hypertension Cancer Aunt Cancer Breast cancer Social History Smoking Status: Never smoker Second Hand Exposure: No; Do You Dip or Chew Tobacco: No; Hx Alcohol Use: Yes Alcohol type: wine Hx Substance Use: No Preferred Language: Telugu Communication Ability: Effective Communication Ability Comment: patient confused [employer] Required: No Beliefs That Will Affect Care: None marital status: Current Living Situation: Spouse Feels Safe at Home: Yes Assistive Devices: Glasses Physical Exam Vital Signs Vital Signs - 24 hr 06/06/23 07:45 06/06/23 08:35 06/06/23 09:30 Temperature 97.7 F Temperature Source Temporal Artery Scan Pulse Rate 108 H 104 H 98 H Pulse Rate from SpO2 Sensor 98 H Respiratory Rate 20 22 Respiratory Effort / Characteristics Non-Labored Respiratory Depth Normal Blood Pressure 143/77 H 139/77 Blood Pressure Mean 99 97 Pulse Oximetry 93 91 Oxygen Delivery Method Room Air Sepsis Recent Fever Within 48 Hours No Sepsis New/Unexplained Change in Mental Status N/A Sepsis Action Taken by Nursing No Action Required 06/06/23 11:00 06/06/23 12:00 06/06/23 12:17 Temperature Temperature Source Pulse Rate 98 H 93 H 94 H Pulse Rate from SpO2 Sensor 97 H 93 H Respiratory Rate 22 22 Respiratory Effort / Characteristics Respiratory Depth Blood Pressure 158/84 H 188/94 H Blood Pressure Mean 108 125 Pulse Oximetry 96 97 Oxygen Delivery Method Sepsis Recent Fever Within 48 Hours Sepsis New/Unexplained Change in Mental Status Sepsis Action Taken by Nursing 06/06/23 12:30 Temperature Temperature Source Pulse Rate 98 H Pulse Rate from SpO2 Sensor 98 H Respiratory Rate 22 Respiratory Effort / Characteristics Respiratory Depth Blood Pressure 159/112 H Blood Pressure Mean 127 Pulse Oximetry 96 Oxygen Delivery Method Sepsis Recent Fever Within 48 Hours Sepsis New/Unexplained Change in Mental Status Sepsis Action Taken by Nursing CONSTITUTIONAL: Well developed, well nourished, appears to be in pain, crying EYES: conjunctivae normal, extraocular muscles intact. No scleral icterus ENMT: External ears normal. Nose with normal external appearance, no congestion. Oral mucous membranes moist. NECK: Full active range of motion. RESPIRATORY: Breathing unlabored and symmetric. Lungs clear to auscultation bilaterally. No wheeze, rales, or rhonchi. CARDIOVASCULAR: Regular rate and rhythm. No murmurs, rubs, or gallops. ABDOMEN: Normal bowel sounds. Abdomen is soft. There is nonspecific diffuse tenderness, nothing focal. No CVA tenderness. MUSCULOSKELETAL: Moves all extremities at all joints without pain or difficulty. There is some reproducible tenderness in the left lumbar paraspinals and left oblique region SKIN: [place], warm, dry. Skin mottling to bilateral legs, baseline per patient and . NEUROLOGIC: Awake, alert. Baseline per . Slightly confused PSYCHIATRIC: Emotional Course Administered Medications Discontinued Medications Acetaminophen (Ofirmev) 1,000 mg in 100 mls @ 400 mls/hr IV NOW STA Stop: 06/06/23 08:14 Last Infusion: 06/06/23 11:02 Dose: Infused Documented By: Admin: 06/06/23 09:23 Dose: 400 mls/hr Documented By: MT Sodium Chloride (Nss) 500 mls @ 999 mls/hr IV .Q31M ONE Stop: 06/06/23 10:45 Last Infusion: 06/06/23 11:39 Dose: Infused Documented By: Admin: 06/06/23 11:03 Dose: 999 mls/hr Documented By: MT Sodium Chloride (Nss) 500 mls @ 999 mls/hr IV .Q31M ONE Stop: 06/06/23 11:38 Last Infusion: 06/06/23 14:00 Dose: Infused Documented By: Admin: 06/06/23 11:39 Dose: 999 mls/hr Documented By: MT Ceftriaxone Sodium (Rocephin) 2,000 mg in 50 mls @ 100 mls/hr IV NOW STA Stop: 06/06/23 12:50 Last Infusion: 06/06/23 14:00 Dose: Infused Documented By: Admin: 06/06/23 13:07 Dose: 100 mls/hr Documented By: MT Potassium Chloride (K [place] / Wtr) 10 meq in 100 mls @ 100 mls/hr IV Q1H JASMYNE Stop: 06/06/23 14:59 Last Admin: 06/06/23 15:26 Dose: 100 mls/hr Documented By: JUANCARLOS Ketorolac Tromethamine (Ketorolac Tromethamine 15 Mg/Ml Vial) 15 mg IV NOW STA Stop: 06/06/23 08:01 Last Admin: 06/06/23 09:22 Dose: 15 mg Documented By: MT Losartan Potassium (Losartan Potassium 50 Mg Tab) 100 mg PO NOW STA Stop: 06/06/23 13:53 Last Admin: 06/06/23 14:33 Dose: 100 mg Documented By: MT Medical Decision Making Differential Diagnosis UTI, pyelonephritis, ureterolithiasis, renal abscess, diverticulitis, vascular injury, small bowel obstruction, appendicitis, myofascial pain, disc bulge, disc herniation, muscle strain, among other pathology Medical Records Attestation: I reviewed the patient's medical records. Laboratory Data 06/06/23 08:45 06/06/23 10:55 Lab Results 06/06/23 06/06/23 06/06/23 Range/Units 08:45 08:52 10:55 WBC 7.59 (4.8-10.8) K/ul RBC 4.58 (4.20-5.40) M/uL Hgb 14.4 (12.0-16.0) g/dl Hct 43.5 (37.0-47.0) % MCV 95.0 (80.0-100.0) fL MCH 31.4 (25.0-34.0) pg MCHC 33.1 (32.0-36.0) g/dL RDW Std Deviation 44.7 (36.4-46.3) fL RDW Coeff of David 12.9 (11.5-14.5) % Plt Count 216 (130-400) K/uL MPV 12.0 (9.4-12.4) fL Immature Gran % (Auto) 0.3 % Neut % (Auto) 93.5 % Lymph % (Auto) 4.6 % [place] % (Auto) 0.7 % Eos % (Auto) 0.5 % Baso % (Auto) 0.4 % Neut # (Auto) 7.10 H (1.40-6.50) K/uL Lymph # (Auto) 0.35 L (1.20-3.40) K/uL [place] # (Auto) 0.05 L (0.11-0.59) K/uL Eos # (Auto) 0.04 (0.00-0.50) K/uL Baso # (Auto) 0.03 (0.00-0.20) K/uL Immature Gran # (Auto) 0.02 (0.01-0.20) K/uL Toxic Vacuolation 2+ Echinocytes 1+ Sodium 141 (136-145) mmol/L Potassium TNP 3.4 L Chloride 109 H (98-107) mmol/L Carbon Dioxide 21 (21-32) mmol/L Anion Gap 11 (3-11) BUN 21 (6-23) mg/dl Creatinine 1.02 (0.6-1.2) mg/dl Est Cr Clr Drug Dosing 50.6 ml/min Est GFR ( Amer) 59.7 ml/min Est GFR (Non-Af Amer) 51.5 ml/min BUN/Creatinine Ratio 20.6 H (10-20) Glucose 98 (70-99(Fasting)) mg/dl Calcium 10.1 (8.6-10.3) mg/dl Magnesium 1.4 L (1.7-2.4) mg/dl Total Bilirubin 1.5 H (0.2-1.0) mg/dl AST TNP 37 ALT 35 (7-52) U/L Alkaline Phosphatase 91 (34-104) U/L Total Protein 6.4 (6.0-8.3) gm/dl Albumin 4.0 (3.4-5.0) gm/dl Globulin 2.4 L (2.5-4.0) gm/dl Albumin/Globulin Ratio 1.7 (0.9-2) Lipase 26 (11-82) U/L 25-OH Vitamin D Total Cancelled 44.4 Urine Color Urine Appearance (Clear) Urine pH (4.5-7.5) Ur Specific [place] (1.000-1.030) Urine Protein (Negative) Urine Glucose (UA) (Negative) Urine Ketones (Negative) Urine Blood (Negative) Urine Nitrite (Negative) Urine Bilirubin (Negative) Urine Urobilinogen (Negative) Ur Leukocyte Esterase (Negative) Urine WBC (Auto) (0-5) /hpf Urine RBC (Auto) (0-4) /hpf U Hyaline Cast (Auto) (0-5) /lpf U Epithel Cells (Auto) (0-5) /lpf Urine Bacteria (Auto) (Negative) Lyme Disease IgG Ab Cancelled Negative Lyme Disease IgM Ab Cancelled Negative 06/06/23 Range/Units 11:30 WBC (4.8-10.8) K/ul RBC (4.20-5.40) M/uL Hgb (12.0-16.0) g/dl Hct (37.0-47.0) % MCV (80.0-100.0) fL MCH (25.0-34.0) pg MCHC (32.0-36.0) g/dL RDW Std Deviation (36.4-46.3) fL RDW Coeff of David (11.5-14.5) % Plt Count (130-400) K/uL MPV (9.4-12.4) fL Immature Gran % (Auto) % Neut % (Auto) % Lymph % (Auto) % [place] % (Auto) % Eos % (Auto) % Baso % (Auto) % Neut # (Auto) (1.40-6.50) K/uL Lymph # (Auto) (1.20-3.40) K/uL [place] # (Auto) (0.11-0.59) K/uL Eos # (Auto) (0.00-0.50) K/uL Baso # (Auto) (0.00-0.20) K/uL Immature Gran # (Auto) (0.01-0.20) K/uL Toxic Vacuolation Echinocytes Sodium (136-145) mmol/L Potassium Chloride (98-107) mmol/L Carbon Dioxide (21-32) mmol/L Anion Gap (3-11) BUN (6-23) mg/dl Creatinine (0.6-1.2) mg/dl Est Cr Clr Drug Dosing ml/min Est GFR ( Amer) ml/min Est GFR (Non-Af Amer) ml/min BUN/Creatinine Ratio (10-20) Glucose (70-99(Fasting)) mg/dl Calcium (8.6-10.3) mg/dl Magnesium (1.7-2.4) mg/dl Total Bilirubin (0.2-1.0) mg/dl AST ALT (7-52) U/L Alkaline Phosphatase (34-104) U/L Total Protein (6.0-8.3) gm/dl Albumin (3.4-5.0) gm/dl Globulin (2.5-4.0) gm/dl Albumin/Globulin Ratio (0.9-2) Lipase (11-82) U/L 25-OH Vitamin D Total Urine Color [place] Urine Appearance Turbid A (Clear) Urine pH 5.5 (4.5-7.5) Ur Specific [place] 1.012 (1.000-1.030) Urine Protein 2+ H (Negative) Urine Glucose (UA) Negative (Negative) Urine Ketones Negative (Negative) Urine Blood 3+ H (Negative) Urine Nitrite Positive A (Negative) Urine Bilirubin Negative (Negative) Urine Urobilinogen Negative (Negative) Ur Leukocyte Esterase 1+ H (Negative) Urine WBC (Auto) >30 H (0-5) /hpf Urine RBC (Auto) >30 H (0-4) /hpf U Hyaline Cast (Auto) 1-5 (0-5) /lpf U Epithel Cells (Auto) 0-5 (0-5) /lpf Urine Bacteria (Auto) Negative (Negative) Lyme Disease IgG Ab Lyme Disease IgM Ab Imaging Data Radiologist's Impression: Abdomen/Pelvis CT 06/06/23 08:03 CT SCAN OF THE ABDOMEN AND PELVIS WITHOUT IV CONTRAST CLINICAL HISTORY: Left flank pain. COMPARISON STUDY: Abdominal CT dated 07/08/2021. TECHNIQUE: CT scan of the abdomen and pelvis is performed from the lung bases to the proximal femora. Images are reviewed in the axial, sagittal, and coronal planes. IV contrast was not administered for this examination. A dose lowering technique was utilized adhering to the principles of ALARA. The examination is degraded by motion artifact, as well as by streak artifact from metallic spinal hardware. CT DOSE: 1254.1 mGy.cm FINDINGS: Lung bases: The heart is top normal in size and without pericardial effusion. The lung bases are clear noted bibasilar scarring/atelectasis. A small hiatal hernia is noted. Liver: The unenhanced liver is normal in size, contour, and attenuation. There is no intrahepatic biliary ductal dilatation. Gallbladder: There are calcified gallstones with no CT evidence of acute cholecystitis. Spleen: Normal in size and attenuation. Pancreas: The unenhanced pancreas is mildly atrophic and grossly unremarkable. Adrenal glands: Unremarkable. Kidneys: The unenhanced kidneys demonstrate mild cortical atrophy. There is mild left hydronephrosis with left-sided perinephric stranding and fluid. The left ureter is normal in caliber, with no obstructing stone or lesion identified. A 9 mm calculus in the left renal pelvis is seen on image #101. An additional 9 mm nonobstructing calculus is seen in the left lower pole. There are numerous (greater than 10) additional nonobstructing left renal calculi which measure up to 4 mm. There is a punctate nonobstructing right renal calculus. No right-sided hydronephrosis is seen. An 8 mm exophytic cyst arises from the left upper pole. This shows thin peripheral calcifications and is similar to previous. Abdominal vasculature: The abdominal aorta is normal in course and caliber noting advanced atherosclerotic calcification. Bowel: There is moderate colonic diverticulosis without CT evidence of acute diverticulitis. No bowel obstruction is seen. A large duodenal diverticulum is noted. The appendix is well-visualized and normal. Peritoneum: There is no intraperitoneal free air or abdominal ascites. There is a fat-containing umbilical hernia. Lymphadenopathy: None. Pelvic viscera: The bladder, uterus, and adnexa are normal as visualized. Numerous phleboliths are seen along the course of the right gonadal vein. Skeletal structures: The skeletal structures are osteopenic. There is spinal spondylosis and scoliosis, with postsurgical change and spinal rods in place. No lytic or blastic lesions are seen. Sclerotic change is noted in the sacroiliac joints and pubic symphysis. Bone graft donor sites are noted in the alaina. IMPRESSION: 1. There is mild left-sided hydronephrosis, with associated left-sided perinephric stranding and fluid. The left ureter is normal in caliber, with no ureteral stone identified. 2. There is a 9 mm calculus in the left renal pelvis. These findings may be related to a recently passed kidney stone, or could represent intermittent obstruction from the calculus in the renal pelvis. 3. There are numerous additional nonobstructing left renal calculi. A single punctate stone is seen in the right kidney. 4. Cholelithiasis. 5. Colonic diverticulosis without CT evidence of acute diverticulitis. 6. Additional findings as above. ACT 112: Negative or not required by law. Electronically signed by: Ruben Johnson M.D. 06/06/2023 9:32 AM MDM Narrative 82-year-old female with baseline dementia, history of stones, accompanied by presents with acute onset of left low back pain this morning. See above for further details. Patient crying, appears to be in pain. Some reproducible tenderness in the left lumbar region. Nonspecific mild abdominal tenderness. IV was inserted and labs were obtained. She was treated with Toradol and Tylenol IV. IV fluids were administered. Case reviewed with ED attending Dr. Bird. Decided to start with CT abdomen pelvis without contrast. This was obtained demonstrating left-sided hydronephrosis with associated left-sided perinephric stranding and fluid though no ureteral stone was identified. There was a 9 mm calculus identified in the left renal pelvis. Radiology felt this could be from a recently passed stone or intermittent obstruction from the renal pelvis stone. Labs: No leukocytosis or anemia. No REILLY. Nonspecific elevation of total bilirubin at 1.5, slightly higher than baseline. No transaminitis. No significant electrolyte abnormalities. Patient had difficult time producing urine sample so a straight cath was performed by nursing staff. Urine appears to be infected with positive nitrites, 3+ blood, greater than 30 white blood cells, no epithelial cells. Patient stated that she had been having urinary urgency recently. Prior urine cultures were reviewed with ED clinical pharmacist. Ceftriaxone was recommended. Concern for infected stone versus pyelonephritis. I called and spoke with Dr. Oshea (urology on-call) regarding the patient's symptoms. He recommends admission, IV antibiotics, and monitoring. If symptoms persist, may require a stent for the left renal pelvis stone which certainly could be contributing to her symptoms. He did not feel that this was an obstructed infected stone however. I discussed admission with the patient and her who are both agreeable with this plan. Case was reviewed with Wayne Ontiveros PA-C with [facility] hospitalist group who agrees to admit the patient under Dr. Contreras for ongoing management. Case reviewed with ED attending Dr. Bird who is agreeable with this plan. Impression Complicated urinary tract infection, Calculus of left kidney, Hydronephrosis of left kidney Discharge Plan Visit Data Chief Complaint: Flank Pain Stated Complaint: LEFT FLANK PAIN,HX KIDNEY STONES ED Provider: Kaylee Bird ED Midlevel Provider: Marvin Lomeli Discharge Problem: Complicated urinary tract infection, Calculus of left kidney, Hydronephrosis of left kidney Patient Disposition: Admitted As Inpatient Condition: Fair Discharge Instructions Interventions: ED Discharge Assessment Last Done: 06/06/23 15:00
[2023-06-06] MEDS ORDERED: ACETAMINOPHEN 1,000 MG/100 ML VIAL IV STA (08:00)
[2023-06-06] MEDS ORDERED: KETOROLAC TROMETHAMINE 15 MG/ML VIAL IV STA (08:00)
[2023-06-06 09:24] LABS: Hematocrit (blood only) 43.5 % (37.0-47.0); Hemoglobin 14.4 g/dl (12.0-16.0); Mean Corpuscular Hemoglobin 31.4 pg (25.0-34.0); Mean Corpuscular Hgb Conc 33.1 g/dL (32.0-36.0); Platelet Count 216 K/uL (130-400); RDW Coefficient of Variation 12.9 % (11.5-14.5); RDW Standard Deviation 44.7 fL (36.4-46.3); Red Blood Count 4.58 M/uL (4.20-5.40); White Blood Count 7.59 K/ul (4.8-10.8)
--- NOTE | 2023-06-06 09:34 | CT Scan Report ---
CT SCAN OF THE ABDOMEN AND PELVIS WITHOUT IV CONTRAST CLINICAL HISTORY: Left flank pain. COMPARISON STUDY: Abdominal CT dated 07/08/2021. TECHNIQUE: CT scan of the abdomen and pelvis is performed from the lung bases to the proximal femora. Images are reviewed in the axial, sagittal, and coronal planes. IV contrast was not administered for this examination. A dose lowering technique was utilized adhering to the principles of ALARA. The ex amination is degraded by motion artifact, as well as by streak artifact from metallic spinal hardware . CT DOSE: 1254.1 mGy.cm FINDINGS: Lung bases: The heart is top normal in size and without pericardial effusion. The lung bases are miah r noted bibasilar scarring/atelectasis. A small hiatal hernia is noted. Liver: The unenhanced liver is normal in size, contour, and attenuation. There is no intrahepatic jacinto iary ductal dilatation. Gallbladder: There are calcified gallstones with no CT evidence of acute cholecystitis. Spleen: Normal in size and attenuation. Pancreas: The unenhanced pancreas is mildly atrophic and grossly unremarkable. Adrenal glands: Unremarkable. Kidneys: The unenhanced kidneys demonstrate mild cortical atrophy. There is mild left hydronephrosis with left-sided perinephric stranding and fluid. The left ureter is normal in caliber, with no obstru cting stone or lesion identified. A 9 mm calculus in the left renal pelvis is seen on image #101. An additional 9 mm nonobstructing calculus is seen in the left lower pole. There are numerous (greater t ramirez 10) additional nonobstructing left renal calculi which measure up to 4 mm. There is a punctate no nobstructing right renal calculus. No right-sided hydronephrosis is seen. An 8 mm exophytic cyst vishnu es from the left upper pole. This shows thin peripheral calcifications and is similar to previous. Abdominal vasculature: The abdominal aorta is normal in course and caliber noting advanced atheroscle rotic calcification. Bowel: There is moderate colonic diverticulosis without CT evidence of acute diverticulitis. No bowel obstruction is seen. A large duodenal diverticulum is noted. The appendix is well-visualized and no rmal. Peritoneum: There is no intraperitoneal free air or abdominal ascites. There is a fat-containing umbi lical hernia. Lymphadenopathy: None. Pelvic viscera: The bladder, uterus, and adnexa are normal as visualized. Numerous phleboliths are se en along the course of the right gonadal vein. Skeletal structures: The skeletal structures are osteopenic. There is spinal spondylosis and scoliosi s, with postsurgical change and spinal rods in place. No lytic or blastic lesions are seen. Sclerotic change is noted in the sacroiliac joints and pubic symphysis. Bone graft donor sites are noted in th e alaina. IMPRESSION: 1. There is mild left-sided hydronephrosis, with associated left-sided perinephric stranding and flui d. The left ureter is normal in caliber, with no ureteral stone identified. 2. There is a 9 mm calculus in the left renal pelvis. These findings may be related to a recently pas sed kidney stone, or could represent intermittent obstruction from the calculus in the renal pelvis. 3. There are numerous additional nonobstructing left renal calculi. A single punctate stone is seen i n the right kidney. 4. Cholelithiasis. 5. Colonic diverticulosis without CT evidence of acute diverticulitis. 6. Additional findings as above. ACT 112: Negative or not required by law. Electronically signed by: Ruben Johnson M.D. 06/06/2023 9:32 AM
[2023-06-06 09:40] LABS: Alanine Aminotransferase 35 U/L (7-52); Albumin Globulin Ratio 1.7 (0.9-2); Alkaline Phosphatase 91 U/L (34-104); Anion Gap 11 (3-11); BUN Creatinine Ratio 20.6 (10-20); Bilirubin,Total 1.5 mg/dl (0.2-1.0); Blood Urea Nitrogen 21 mg/dl (6-23); Calcium 10.1 mg/dl (8.6-10.3); Carbon Dioxide 21 mmol/L (21-32); Chloride 109 mmol/L (98-107); Creatinine Clr Calc Pharmacy 50.6 ml/min; Est GFR (African American) 59.7 ml/min; Est GFR (Non-African American) 51.5 ml/min; Globulin 2.4 gm/dl (2.5-4.0); Glucose 98 mg/dl (70-99(Fasting)); Lipase 26 U/L (11-82); Sodium 141 mmol/L (136-145); Total Protein 6.4 gm/dl (6.0-8.3)
[2023-06-06 10:02] LABS: Basophils # (auto) 0.03 K/uL (0.00-0.20); Basophils % (auto) 0.4 %; Echinocytes 1+; Eosinophils # (auto) 0.04 K/uL (0.00-0.50); Eosinophils % (auto) 0.5 %; Immature Granulocytes # (auto) 0.02 K/uL (0.01-0.20); Immature Granulocytes % (auto) 0.3 %; Lymphocytes # (auto) 0.35 K/uL (1.20-3.40); Lymphocytes % (auto) 4.6 %; Monocytes # (auto) 0.05 K/uL (0.11-0.59); Monocytes % (auto) 0.7 %; Neutrophils % (auto) 93.5 %; Toxic Vacuolation 2+
[2023-06-06] MEDS ORDERED: SODIUM CHLORIDE 0.9% 500 ML IV ONE ×2 (10:15→11:08)
[2023-06-06 11:31] LABS: Potassium 3.4 mmol/L (3.5-5.1)
[2023-06-06 11:58] LABS: Lyme Ab IgG w/WB Rflx Negative (Negative); Lyme Ab IgM w/WB Rflx Negative (Negative)
[2023-06-06 12:10] LABS: Appearance Urine Turbid (Clear); Bacteria Urine Automated Negative (Negative); Bilirubin Urine Negative (Negative); Blood Urine 3+ (Negative); Color Urine Orange; Epithelial Cell Urine Auto 0-5 /lpf (0-5); Glucose Urine UA Negative (Negative); Ketones Urine Negative (Negative); Leukocyte Esterase Urine 1+ (Negative); Nitrite Urine Positive (Negative); Protein Urine 2+ (Negative); RBC Urine Automated >30 /hpf (0-4); Specific Gravity Urine 1.012 (1.000-1.030); Urobilinogen Urine Negative (Negative); WBC Urine Automated >30 /hpf (0-5); pH Urine 5.5 (4.5-7.5)
[2023-06-06] MEDS ORDERED: cefTRIAXone SODIUM 2,000 MG/50 ML BAG IV STA (12:21)
--- NOTE | 2023-06-06 13:02 | History & Physical Report ---
Date of Service June 06, 2023 Assessment & Plan (1) Hydronephrosis of left kidney: Plan: -Admit to med/tele -Currently stable and with pain under control -Presented to the ED with acute onset of left flank pain -CT of the abd/pelvis shows multiple left renal stones with a 9 mm calculus in the left renal pelvis but without acute obstruction -Urology was contacted and recommends medicine admission with IV antibiotics for now; will continue to monitor to see if she will require stent placement -Renal function is stable -Does appear to have a UTI -S/P 1L NSS, a dose of ceftriaxone, 1gm IV tylenol and 15 mg IV toradol in the ED -Continue with ceftriaxone for now, follow urine cultures -Pain control with Tylenol to start with hx known dementia -Monitor renal function and fever curve -Urology consult placed -HH Diet -BL MODESTA's for DVT PPX -AM CBC, BMP, mag (2) UTI (urinary tract infection): Plan: -Ua appears consistent with UA -Patient is a poor historian so difficult to tell if she has been symptomatic -Negative BL CVA tenderness -Has only grown e.coli in the past, has always been sensitive to ceftriaxone -Will continue Ceftriaxone for now, follow urine cultures (3) Hypokalemia: Plan: -Noted to be 3.4 today -Likely due to poor oral intake -Not on diuretics -Will obtain mag level -Will give 10 meq IV KCL x 2 bags on admission -Will give 40 meq PO KCL as well -Monitor on tele -Monitor daily electrolytes (4) Calculus of left kidney: Plan: -See left hydronephrosis (5) Mild dementia: Plan: -Continue Donepezil (6) Hypothyroidism (acquired): Plan: -Continue levothyroxine (7) Hypertension: Plan: -Stable -Will give am dose of losartan now as she is hypertensive (8) Asthma: Plan: -Stable on RA -Continue home breathing treatments -Incentive spirometry Plan The patient was discussed with Dr. Contreras at the time of the admission History of Present Illness Chief Complaint: Left flank pain Primary Care Provider: Florian Dobbins MD Renate is an 82 year old female with a PMH significant for dementia, previous kidney stones, hypothyroidism, and HTN who presented to the [facility] ED on 06/06 with her for acute onset of left flank pain this am around 0430. She was initially tachycardic with HR in the low 100's on arrival but otherwise stable. Labs were significant for stable renal function, potassium of 3.4, total bili of 1.5 with other LFT's WNL, UA suggestive of UTI. CT of the abd/pelvis wo con was read as "1. There is mild left-sided hydronephrosis, with associated left-sided perinephric stranding and fluid. The left ureter is normal in caliber, with no ureteral stone identified. 2. There is a 9 mm calculus in the left renal pelvis. These findings may be related to a recently passed kidney stone, or could represent intermittent obstruction from the calculus in the renal pelvis. 3. There are numerous additional nonobstructing left renal calculi. A single punctate stone is seen in the right kidney. 4. Cholelithiasis. 5. Colonic diverticulosis without CT evidence of acute diverticulitis.". The ED spoke with Urology who reviewed the images. They do not believe that she has a current obstructing/infection stone but may be having intermittent obstruction with the large stone in the left renal pelvis. They recommended admission with IV antibiotics for now and they will continue to follow. If need they can place a stent prior to discharge. Prior to admission the patient was given 1gm IV tylenol, 15 mg IV toradol, a dose of ceftriaxone, and 1L NSS. At the time of the exam the patient was sitting in bed in no acute distress with her sitting bedside; history was obtained from the patient's due to her baseline mental status. He states that the patient was treated for a UTI last month. Per review of records, she was treated with a course of Augmentin for E.coli UTI. The sensitivities do show the e.coli being susceptible to Augmentin. This am the patient woke with acute onset of left sided flank pain which continued for multiple hours prompting ED evaluation. The patient's denies the patient having a recent fever, her appetite has been good. She states that her pain is currently under control. She is unsure if she has been experiencing urinary symptoms recently. She denies chest pain, SOB, abd pain, nausea, vomiting, diarrhea, melena, and recent trauma. She is a full code and her makes medical decisions for her due to dementia. Please refer to Dr. Contreras's attestation for any changes to the treatment plan Allergies Allergy/AdvReac Type Severity Reaction Status Date / Time adhesive Allergy Mild Skin Verified 06/06/23 10:40 irritation doxycycline Allergy Mild Red skin, Verified 06/06/23 10:40 itchy estrogens, conjugated Allergy Mild Rash Verified 06/06/23 10:40 perfume Allergy Mild Sneezing Verified 06/06/23 10:40 pollen extracts Allergy Mild Sneezing Verified 06/06/23 10:40 Sulfa (Sulfonamide Allergy Mild Rash Verified 06/06/23 10:40 Antibiotics) Home Medications Medication Instructions Recorded Confirmed Type acetaminophen 325 mg tablet 325 mg PO Q6H PRN Pain 03/01/19 06/06/23 History (Tylenol) cholecalciferol (vitamin D3) 25 25 mcg PO DAILY 11/13/21 06/06/23 History mcg (1,000 unit) capsule amoxicillin 500 mg tablet 2,000 mg (4 x 500 mg) PO 12/28/22 06/06/23 Rx DIRECTED PRN DENTAL PROCEDURE #4 tabs atorvastatin 10 mg tablet 10 mg PO HS #90 tabs 01/13/23 06/06/23 Rx losartan 100 mg tablet 100 mg PO QAM #90 tabs 01/13/23 06/06/23 Rx pantoprazole 40 mg tablet,delayed 40 mg PO DAILY #90 tabs 04/07/23 06/06/23 Rx release venlafaxine 75 mg capsule,extended 75 mg PO QAM #90 caps 04/07/23 06/06/23 Rx release 24 hr (Effexor XR) ipratropium bromide 42 mcg (0.06 2 spray intranasal .COMPLEX #15 mL 05/07/23 06/06/23 Rx %) nasal spray donepezil 5 mg tablet 5 mg PO DAILY #30 tabs 05/27/23 06/06/23 Rx levothyroxine 75 mcg tablet 75 mcg PO QAM 06/06/23 06/06/23 History montelukast 10 mg tablet 10 mg PO HS 06/06/23 06/06/23 History amoxicillin 875 mg-potassium 1 tab PO BID 4 days #8 tabs 06/08/23 Rx clavulanate 125 mg tablet oxybutynin chloride 5 mg tablet 5 mg PO BID PRN Pain 10 days #20 06/08/23 Rx tabs phenazopyridine 100 mg tablet 100 mg PO BID PRN pain 6 doses #6 06/08/23 Rx (Pyridium) tabs tamsulosin 0.4 mg capsule (Flomax) 0.4 mg PO DAILY #10 caps 06/08/23 Rx Past Med/Surg History Medical History Hx of vertigo Kidney stone Right ureteral calculus Depression Hypertension Hyperlipidemia Asthma Stable Renal cyst History of herpes labialis Epidermal cyst Osteoarthritis Scoliosis H/O carcinoma in situ of skin s/p excision Hiatal hernia Osteoporosis DDD (degenerative disc disease), thoracolumbar GERD (gastroesophageal reflux disease) Controlled 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 Surgical History History of esophagogastroduodenoscopy (EGD) History of lithotripsy Left ESWL (01/31/21): [place]#4[place] [facility] [place] S/P correction of deviated nasal septum S/P wisdom tooth extraction History of cataract surgery R/L Fusion of spine Lumbar History of colonoscopy History of herniorrhaphy R/L inguinal History of tooth extraction Family History Uncle Family history of diabetes mellitus Mother Asthma Cardiac disorder Hypertension Cancer Aunt Cancer Breast cancer Social History Smoking Status: Never smoker Second Hand Exposure: No; Do You Dip or Chew Tobacco: No; Hx Alcohol Use: No Hx Substance Use: No Preferred Language: Azerbaijani Communication Ability: Effective Communication Ability Comment: patient confused Chief Controller Station Required: No Beliefs That Will Affect Care: None marital status: Current Living Situation: Spouse Feels Safe at Home: Yes Assistive Devices: None Physical Exam Physical Exam: Physical Exam: General: In no acute distress, stated age, well-nourished, non-toxic appearing HEENT: Normocephalic, atraumatic, no scleral icterus, pupils around round, symmetrical, and reactive to light, moist mucus membranes, trachea midline, no thyromegaly Chest/Pulm: No respiratory distress, symmetrical chest expansion, clear breath sounds throughout Cardiac: RRR, no murmurs noted Abdomen: Negative for ascites and bruising, normoactive bowel sounds, soft, non-tender to palpation throughout : Negative CVA tenderness BL Musculoskeletal: Symmetrical and without signs of acute trauma, upper and lower extremities with full ROM, no atrophy, spasticity, or flaccidity Extremities: Radial, dorsalis pedis, and posterior tibial pulses are intact and symmetrical, no edema noted in the BL LE's Skin: Warm, dry, no rashes , lesions, or scars noted Neuro: Alert and oriented to person, place, month, year, and president, no focal defects, no tremors noted Psych: No acute distress, calm and cooperative during the exam Results & Data Results & Data Vital Signs (Past 12 Hours) Vital Signs Temp Pulse Resp BP Pulse Ox O2 Del Method 06/06/23 12:17 94 H 06/06/23 12:00 93 H 22 188/94 H 97 06/06/23 11:00 98 H 22 158/84 H 96 06/06/23 09:30 98 H 22 139/77 91 06/06/23 08:35 104 H 06/06/23 07:45 36.5 C 108 H 20 143/77 H 93 Room Air Laboratory Results Abnormal lab results 06/06/23 06/06/23 06/06/23 Range/Units 08:45 10:55 11:30 Neut # (Auto) 7.10 H (1.40-6.50) K/uL Lymph # (Auto) 0.35 L (1.20-3.40) K/uL Dewitt # (Auto) 0.05 L (0.11-0.59) K/uL Potassium 3.4 L (3.5-5.1) mmol/L Chloride 109 H (98-107) mmol/L BUN/Creatinine Ratio 20.6 H (10-20) Total Bilirubin 1.5 H (0.2-1.0) mg/dl Globulin 2.4 L (2.5-4.0) gm/dl Urine Appearance Turbid A (Clear) Urine Protein 2+ H (Negative) Urine Blood 3+ H (Negative) Urine Nitrite Positive A (Negative) Ur Leukocyte Esterase 1+ H (Negative) Urine WBC (Auto) >30 H (0-5) /hpf Urine RBC (Auto) >30 H (0-4) /hpf Diagnostic Findings Abdomen/Pelvis CT 06/06/23 08:03 CT SCAN OF THE ABDOMEN AND PELVIS WITHOUT IV CONTRAST CLINICAL HISTORY: Left flank pain. COMPARISON STUDY: Abdominal CT dated 07/08/2021. TECHNIQUE: CT scan of the abdomen and pelvis is performed from the lung bases to the proximal femora. Images are reviewed in the axial, sagittal, and coronal planes. IV contrast was not administered for this examination. A dose lowering technique was utilized adhering to the principles of ALARA. The examination is degraded by motion artifact, as well as by streak artifact from metallic spinal hardware. CT DOSE: 1254.1 mGy.cm FINDINGS: Lung bases: The heart is top normal in size and without pericardial effusion. The lung bases are clear noted bibasilar scarring/atelectasis. A small hiatal hernia is noted. Liver: The unenhanced liver is normal in size, contour, and attenuation. There is no intrahepatic biliary ductal dilatation. Gallbladder: There are calcified gallstones with no CT evidence of acute cholecystitis. Spleen: Normal in size and attenuation. Pancreas: The unenhanced pancreas is mildly atrophic and grossly unremarkable. Adrenal glands: Unremarkable. Kidneys: The unenhanced kidneys demonstrate mild cortical atrophy. There is mild left hydronephrosis with left-sided perinephric stranding and fluid. The left ureter is normal in caliber, with no obstructing stone or lesion identified. A 9 mm calculus in the left renal pelvis is seen on image #101. An additional 9 mm nonobstructing calculus is seen in the left lower pole. There are numerous (greater than 10) additional nonobstructing left renal calculi which measure up to 4 mm. There is a punctate nonobstructing right renal calculus. No right-sided hydronephrosis is seen. An 8 mm exophytic cyst arises from the left upper pole. This shows thin peripheral calcifications and is similar to previous. Abdominal vasculature: The abdominal aorta is normal in course and caliber noting advanced atherosclerotic calcification. Bowel: There is moderate colonic diverticulosis without CT evidence of acute diverticulitis. No bowel obstruction is seen. A large duodenal diverticulum is noted. The appendix is well-visualized and normal. Peritoneum: There is no intraperitoneal free air or abdominal ascites. There is a fat-containing umbilical hernia. Lymphadenopathy: None. Pelvic viscera: The bladder, uterus, and adnexa are normal as visualized. Numerous phleboliths are seen along the course of the right gonadal vein. Skeletal structures: The skeletal structures are osteopenic. There is spinal spondylosis and scoliosis, with postsurgical change and spinal rods in place. No lytic or blastic lesions are seen. Sclerotic change is noted in the sacroiliac joints and pubic symphysis. Bone graft donor sites are noted in the alaina. IMPRESSION: 1. There is mild left-sided hydronephrosis, with associated left-sided perinephric stranding and fluid. The left ureter is normal in caliber, with no ureteral stone identified. 2. There is a 9 mm calculus in the left renal pelvis. These findings may be related to a recently passed kidney stone, or could represent intermittent obstruction from the calculus in the renal pelvis. 3. There are numerous additional nonobstructing left renal calculi. A single punctate stone is seen in the right kidney. 4. Cholelithiasis. 5. Colonic diverticulosis without CT evidence of acute diverticulitis. 6. Additional findings as above. ACT 112: Negative or not required by law. Electronically signed by: Ruben Johnson M.D. 06/06/2023 9:32 AM Code Status & VTE Plan Code Status Full code VTE Prophylaxis Plan VTE Prophylaxis will be ordered: Yes Supervising Physician Co-Signing Physician Notes I personally saw and examined the patient. I verified all sethi points and agree with Wayne Ontiveros PA-C with the following exceptions and/or additions: 82 year old female presents to the ER due to altered mental state. Unable to get any history from patient when seen due to altered mental state and no longer at bedside. Please see history above. O/E Alert, orientated to person only, HS RRR, no murmurs, Chest CTAB, Abdo SNT, No CVA tenderness, no pedal edema A/P Left Hydronephrosis - possible intermittent obstructing stone. consult urology. NPO after midnight for consideration of stent tomorrow - if septic will need emergent stent over night. UTI - ceftriaxone, follow up urine/blood cultures PG Care Time/CCT Total # of Minutes Spent Total Time Spent with Patient: Total time spent is greater than 50% in coordination of care (as documented) at patient's floor/unit and/or counseling patient: Coding [place] [address] INT INP/OBS CARE 2/55MIN Patient Type Established Medical Decision Making Moderate Complexity Diagnoses Hydronephrosis of left kidney N13.30 UTI (urinary tract infection) N39.0 Hypokalemia E87.6 Calculus of left kidney N20.0 Mild dementia F03.A0 Dementia behavioral or psychological symptom: with mood disturbance Hypothyroidism (acquired) E03.9 Hypertension I10 Asthma J45.909 (5) Mild dementia Dementia behavioral or psychological symptom: with mood disturbance
[2023-06-06] MEDS ORDERED: ACETAMINOPHEN 325 MG TAB PO PRN (13:18)
[2023-06-06] MEDS ORDERED: LOSARTAN POTASSIUM 50 MG TAB PO STA (13:52)
[2023-06-06 14:04] LABS: Magnesium 1.4 mg/dl (1.7-2.4)
[2023-06-06] MEDS ORDERED: POTASSIUM CHLORIDE CRTAB 20 MEQ TABCR PO STA (14:49)
[2023-06-06] MEDS: POTASSIUM CHLORIDE / WTR 10 MEQ/100 ML PLCT IV SCH ×2 (15:26→16:46)
[2023-06-06] MEDS: ATORVASTATIN 10 MG TAB PO SCH (19:46)
--- NOTE | 2023-06-06 20:46 | Urology Consultation ---
Date of Consultation June 06, 2023 Assessment & Plan (1) UTI (urinary tract infection): The patient has been admitted on the hospital service. From a urologic perspective we recommend proceeding as follows: Provide analgesics Provide antiemetics Patient has been placed on antibiotics in form of Rocephin. The patient has had a urine culture sent. Antibiotics be tailored based on the results of this culture. Of note, the patient was recently treated for urinary tract infection in April of this year. Results of this culture showed the patient had E. coli which was sensitive to ceftriaxone which she is currently receiving Would recommend making the patient n.p.o. She will be reevaluated in the morning of 06/07/2023 determine if cystoscopic intervention is required. At the present time the patient has a slight hypotension with a blood pressure of 98/61. She is not tachycardic or febrile and does not exhibit leukocytosis. She also does not have acute kidney injury. If the patient does develop any fevers or other signs of impending sepsis consideration be given to performing cystoscopy on a more emergent basis (2) Hydronephrosis of left kidney: (3) Calculus of left kidney: History of Present Illness Reason for Consultation: Left-sided hydronephrosis with multiple kidney stones Attending Physician: Trevor Contreras MD History of Present Illness This is an 82-year-old female who presented to the hospital secondary to left flank pain that began at approximately 430 this morning. The patient says she does have a history of kidney stones and this is similar to the pain that she has had when she has had kidney stones in the past. She denies any fevers, shakes, or chills. She denies any dysuria, hematuria or urinary frequency. The patient does follow with Dr. Jamir Singletary of [facility] physician [facility] urology. Her most recent urologic procedure was on 03/27/2021 where patient underwent a cystoscopy with a right ureteral stent placement. The patient does note that she did not report any modifying factors to her current pain and she does feel improved since she has arrived to the hospital. Since arrival to the hospital the patient has had labs and imaging which independent reviewed. CBC reveals white blood cell count, hemoglobin, hematocrit, platelet count were normal. Chemistry profile showed sodium was 141 with a potassium of 3.4. BUN and creatinine were both normal. Urinalysis showed turbid urine which was positive for nitrites and 1+ leukocyte Estrace. There are greater than 30 white blood cells per high-power field and the specimen was negative for bacteria. A CT scan of the abdomen pelvis was performed. This showed the patient had mild left-sided hydronephrosis with some perinephric fat stranding. The patient was noted to have a 9 mm kidney stone in the left renal pelvis. The patient was also noted to have numerous nonobstructing left renal calculi. At the time of my interview the patient was resting comfortably in bed and she was no distress. Allergies Allergy/AdvReac Type Severity Reaction Status Date / Time adhesive Allergy Mild Skin Verified 06/06/23 10:40 irritation doxycycline Allergy Mild Red skin, Verified 06/06/23 10:40 itchy estrogens, conjugated Allergy Mild Rash Verified 06/06/23 10:40 perfume Allergy Mild Sneezing Verified 06/06/23 10:40 pollen extracts Allergy Mild Sneezing Verified 06/06/23 10:40 Sulfa (Sulfonamide Allergy Mild Rash Verified 06/06/23 10:40 Antibiotics) Home Medications Medication Instructions Recorded Confirmed Type acetaminophen 325 mg tablet 325 mg PO Q6H PRN Pain 03/01/19 06/06/23 History (Tylenol) cholecalciferol (vitamin D3) 25 25 mcg PO DAILY 11/13/21 06/06/23 History mcg (1,000 unit) capsule amoxicillin 500 mg tablet 2,000 mg (4 x 500 mg) PO 12/28/22 06/06/23 Rx DIRECTED PRN DENTAL PROCEDURE #4 tabs atorvastatin 10 mg tablet 10 mg PO HS #90 tabs 01/13/23 06/06/23 Rx losartan 100 mg tablet 100 mg PO QAM #90 tabs 01/13/23 06/06/23 Rx pantoprazole 40 mg tablet,delayed 40 mg PO DAILY #90 tabs 04/07/23 06/06/23 Rx release venlafaxine 75 mg capsule,extended 75 mg PO QAM #90 caps 04/07/23 06/06/23 Rx release 24 hr (Effexor XR) ipratropium bromide 42 mcg (0.06 2 spray intranasal .COMPLEX #15 mL 05/07/23 06/06/23 Rx %) nasal spray donepezil 5 mg tablet 5 mg PO DAILY #30 tabs 05/27/23 06/06/23 Rx levothyroxine 75 mcg tablet 75 mcg PO QAM 06/06/23 06/06/23 History montelukast 10 mg tablet 10 mg PO HS 06/06/23 06/06/23 History Patient History Medical History Hx of vertigo Kidney stone Right ureteral calculus Depression Hypertension Hyperlipidemia Asthma Stable Renal cyst History of herpes labialis Epidermal cyst Osteoarthritis Scoliosis H/O carcinoma in situ of skin s/p excision Hiatal hernia Osteoporosis DDD (degenerative disc disease), thoracolumbar GERD (gastroesophageal reflux disease) Controlled 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 [place] H/O breast biopsy S/P correction of deviated nasal septum S/P wisdom tooth extraction History of cataract surgery R/L Fusion of spine Lumbar History of colonoscopy History of herniorrhaphy R/L inguinal History of tooth extraction Family History Uncle Family history of diabetes mellitus Mother Asthma Cardiac disorder Hypertension Cancer Aunt Cancer Breast cancer Social History Smoking Status: Never smoker Second Hand Exposure: No; Do You Dip or Chew Tobacco: No; Tobacco Cessation Education Requested by Patient: No Hx Alcohol Use: No Hx Substance Use: No Preferred Language: Nicaraguan Communication Ability: Effective Communication Ability Comment: patient confused Head Grinder Required: No Beliefs That Will Affect Care: None marital status: Current Living Situation: Spouse Other Information That Helps Us Care for You: No Feels Safe at Home: Yes Safety Concerns: Feels Safe At This Time Assistive Devices: Walker Review of Systems Constitutional: no fever and no chills Ear, Nose, Mouth, Throat: no ear pain Respiratory: no cough Cardiovascular: no chest pain Gastrointestinal: no abdominal pain, no nausea and no vomiting Genitourinary: as per Subjective / HPI; no dysuria Musculoskeletal: + back pain (Left flank) Integumentary: no rash Neurologic: no localized weakness Physical Exam Constitutional: WD/WN, vitals as above Eyes: no conjunctival abnormality ENMT: Ears: no hearing impairment Neck: trachea midline Respiratory: normal respiratory effort; no respiratory distress and no labored breathing Cardiovascular: Rate/Rhythm: regular rate and regular rhythm Gastrointestinal (Abdomen): Abdomen is soft and nondistended. There is no pain with palpation Musculoskeletal: No calf tenderness Skin: no rashes Neurologic: moves all extremities Genitourinary: No CVA tenderness with percussion at the time of my exam Results & Data Vital Signs (Past 12 Hours) Vital Signs Temp Pulse Pulse Resp BP BP Pulse Ox 06/06/23 19:33 36.6 C 81 16 98/61 L 93 06/06/23 15:45 81 06/06/23 15:28 06/06/23 15:28 36.8 C 86 18 140/77 90 06/06/23 14:30 87 20 136/67 95 06/06/23 12:30 98 H 22 159/112 H 96 06/06/23 12:17 94 H 06/06/23 12:00 93 H 22 188/94 H 97 06/06/23 11:00 98 H 22 158/84 H 96 06/06/23 09:30 98 H 22 139/77 91 O2 Del Method 06/06/23 19:33 Room Air 06/06/23 15:45 06/06/23 15:28 Room Air 06/06/23 15:28 Room Air 06/06/23 14:30 06/06/23 12:30 06/06/23 12:17 06/06/23 12:00 06/06/23 11:00 06/06/23 09:30 PG Care Time/CCT Total # of Minutes Spent Total Time Spent with Patient: Total time spent is greater than 50% in coordination of care (as documented) at patient's floor/unit and/or counseling patient: Coding Level of Care Code 68881 INT INP/OBS CARE 3/75MIN Diagnoses UTI (urinary tract infection) N39.0 Hydronephrosis of left kidney N13.30 Calculus of left kidney N20.0
[2023-06-06] MEDS: MAGNESIUM SULFATE / D5W 1 GM/100 ML BAG IV SCH ×2 (22:15→23:54)
[2023-06-07] MEDS: MAGNESIUM SULFATE / D5W 1 GM/100 ML BAG IV SCH (01:58)
[2023-06-07] MEDS: PLASMA-LYTE A 1,000 ML IV SCH ×2 (03:51→13:49)
[2023-06-07] MEDS: LEVOTHYROXINE SODIUM 75 MCG TABLET PO SCH (03:51)
[2023-06-07 06:07] LABS: Basophils # (auto) 0.06 K/uL (0.00-0.20); Basophils % (auto) 0.4 %; Eosinophils # (auto) 0.15 K/uL (0.00-0.50); Hematocrit (blood only) 38.2 % (37.0-47.0); Hemoglobin 13.1 g/dl (12.0-16.0); Immature Granulocytes # (auto) 0.04 K/uL (0.01-0.20); Immature Granulocytes % (auto) 0.3 %; Lymphocytes # (auto) 1.59 K/uL (1.20-3.40); Lymphocytes % (auto) 10.5 %; Mean Corpuscular Hemoglobin 31.8 pg (25.0-34.0); Mean Corpuscular Hgb Conc 34.3 g/dL (32.0-36.0); Mean Corpuscular Volume 92.7 fL (80.0-100.0); Monocytes # (auto) 1.26 K/uL (0.11-0.59); Monocytes % (auto) 8.3 %; Neutrophils % (auto) 79.5 %; Platelet Count 174 K/uL (130-400); RDW Coefficient of Variation 13.2 % (11.5-14.5); RDW Standard Deviation 44.9 fL (36.4-46.3); Red Blood Count 4.12 M/uL (4.20-5.40)
[2023-06-07 06:30] LABS: Calcium 9.2 mg/dl (8.6-10.3); Creatinine Clr Calc Pharmacy 49.6 ml/min; Est GFR (African American) 61.2 ml/min; Est GFR (Non-African American) 52.8 ml/min; Magnesium 2.5 mg/dl (1.7-2.4); Potassium 4.3 mmol/L (3.5-5.1)
[2023-06-07] MEDS: DONEPEZIL HCL 5 MG TAB PO SCH (07:30)
[2023-06-07] MEDS: VENLAFAXINE HCL XR 75 MG CAPXR PO SCH (07:30)
[2023-06-07] MEDS: PANTOprazole 40 MG TAB PO SCH (07:30)
[2023-06-07] MEDS: LOSARTAN POTASSIUM 50 MG TAB PO SCH (07:30)
--- NOTE | 2023-06-07 09:08 | Urology Progress Note ---
Date of Service June 07, 2023 Assessment & Plan (1) Calculus of left kidney: (2) Hydronephrosis of left kidney: (3) UTI (urinary tract infection): Plan: Follow-up of 9 mm left renal pelvis stone with hydronephrosis Afebrile overnight, hemodynamically stable Labs reviewedcreatinine 1.00, WBC 15.2, hemoglobin 13.1 Urine culture prelim gram-negative bacilli Continue broad-spectrum antibiotics and narrow per sensitivity data when available Discussed options for stone management including left ureteral stent placement while inpatient due to concern for infection with obstructing stone and leukocytosis Ureteral stents were discussed in detail After discussion, patient wishes to proceed with surgical intervention today Patient's is also at bedside and in agreement with the plan Proceed to the OR for cystoscopy, retrograde pyelogram and left ureteral stent placement Risks and benefits of procedure to be reviewed with patient by Dr. Oshea Will continue with scheduled ceftriaxone preoperatively Continue supportive care and medical management per hospital medicine service Admission and Anticipated Discharge Date Admission Date: June 06, 2023 Subjective Patient seen and examined at bedside this morning No acute issues overnight Denies abdominal or flank pain this morning Voiding spontaneously, no dysuria or hematuria No nausea, vomiting, fever or chills Review of Systems Constitutional: as per Subjective / HPI Respiratory: no dyspnea Cardiovascular: no chest pain Gastrointestinal: no abdominal pain, no nausea and no vomiting Genitourinary: as per Subjective / HPI; no dysuria Musculoskeletal: as per Subjective / HPI Integumentary: no rash Neurologic: no localized weakness Physical Exam Physical Exam: General: well-appearing, no acute distress HEENT: Normocephalic Pulmonary: Nonlabored respirations Abdomen: Nondistended Extremities: Moves all 4 spontaneously Neuro: No gross deficits Psych: alert and oriented, tearful during visit Skin: Warm, dry, no rashes noted Results & Data Vital Signs (Past 12 Hours) Vital Signs Temp Pulse Pulse Pulse Resp BP Pulse Ox 06/07/23 07:45 36.7 C 92 H 18 144/80 H 94 06/07/23 03:01 36.6 C 84 18 144/66 H 94 06/06/23 23:04 36.6 C 86 18 142/68 H 95 06/06/23 22:00 90 O2 Del Method 06/07/23 07:45 Room Air 06/07/23 03:01 Room Air 06/06/23 23:04 Room Air 12/17/23 22:00 PG Care Time/CCT Total # of Minutes Spent Total Time Spent with Patient: Total time spent is greater than 50% in coordination of care (as documented) at patient's floor/unit and/or counseling patient: Coding Level of Care Code 40672 SUB INP/OBS CARE 2/35MIN Diagnoses Calculus of left kidney N20.0 Hydronephrosis of left kidney N13.30 UTI (urinary tract infection) N39.0
--- NOTE | 2023-06-07 09:13 | Hospitalist Progress Note ---
Date of Service June 07, 2023 Assessment & Plan (1) Hydronephrosis of left kidney: Plan: -Currently stable and with pain under control -CT A/P: Multiple left renal stones with a 9 mm calculus in the left renal pelvis but without acute obstruction -Urology consulted, appreciate recs - Continue broad-spectrum abx (pt on Ceftriaxone) until urine culture - Plan for OR 06/07 for cystoscopy, retrograde pyelogram and left ureteral stent placement with Dr. Oshea - NPO -Renal function is stable -Does appear to have a UTI, continue ceftriaxone until cultures -BL MODESTA's for DVT PPX -AM CBC, BMP, mag (2) UTI (urinary tract infection): Plan: -Patient is a poor historian so difficult to tell if she has been symptomatic, was treated with Augmentin for UTI in April. Has only grown E.coli in the past -UC: gram negative bacilli -Will continue Ceftriaxone for now, follow urine cultures (3) Hypokalemia: Plan: -3.4 on admission -Given 10 meq IV KCL x 2 bags on admission and 40 meq PO -Mag 1.4 on admission - Given 1mg x 3 bags -06/07 K:4.3 and Ma.5 -recheck AM (4) Calculus of left kidney: Plan: -See left hydronephrosis (5) Mild dementia: Plan: -Continue Donepezil (6) Hypothyroidism (acquired): Plan: -Continue levothyroxine TSH normal in 04/2023 (7) Hypertension: Plan: -Continue Losartan (8) Asthma: Plan: -Stable on RA -Continue home breathing treatments -Incentive spirometry Plan Dispo: continued inpatient stay DVT: B/l TEDs Admission and Anticipated Discharge Date Admission Date: June 06, 2023 Supervising Physician Co-Signing Physician Notes PA Supervision Note: I did not personally see or examine the patient today, but I verified all sethi points of HERIBERTO Yeh's assessment and plan with the following exceptions/a dditions: None Subjective Patient seen sitting up in the chair, Tereso at bedside. Patient reports feeling well, tearful when talking about being here overnight without her . Denies pain. Voiding without issues. No fevers or chills. Reports that she did not sleep well but denies a sleep aide for this evening. Denies CP or SOB. Tereso reports that Urology is going to be taking her to the OR today. Tele: NSR 80s Review of Systems Review of Systems: All systems reviewed & are unremarkable except as noted in Subjective Physical Exam Physical Exam: General: WN/WD, tearful at times Resp: normal respiratory effort, lungs clear to auscultation CV: RRR, no murmur, Abd: normal bowel sounds, non tender, no hepatosplenomegaly Back: No CVA tenderness Extremities: Moves all extremities, no edema Results & Data Results & Data Vital Signs (Past 12 Hours) Vital Signs Temp Pulse Pulse Pulse Resp BP Pulse Ox 06/07/23 07:45 36.7 C 92 H 18 144/80 H 94 06/07/23 03:01 36.6 C 84 18 144/66 H 94 06/06/23 23:04 36.6 C 86 18 142/68 H 95 06/06/23 22:00 90 O2 Del Method 06/07/23 07:45 Room Air 06/07/23 03:01 Room Air 06/06/23 23:04 Room Air 06/06/23 22:00 Laboratory Results CBC, chemistry and mag reviewed. PG Care Time/CCT Total # of Minutes Spent Total Time Spent with Patient: Total time spent is greater than 50% in coordination of care (as documented) at patient's floor/unit and/or counseling patient: Coding Level of Care Code 75192 SUB INP/OBS CARE 2/35MIN Diagnoses Hydronephrosis of left kidney N13.30 UTI (urinary tract infection) N39.0 Hypokalemia E87.6 Calculus of left kidney N20.0 Mild dementia F03.A0 Dementia behavioral or psychological symptom: with mood disturbance Hypothyroidism (acquired) E03.9 Hypertension I10 Asthma J45.909 (5) Mild dementia Dementia behavioral or psychological symptom: with mood disturbance
[2023-06-07] MEDS ORDERED: LACTATED RINGER'S 1,000 ML IV SCH (15:30)
[2023-06-07] MEDS ORDERED: fentaNYL citrate PF 100 MCG/2 ML VIAL IV PRN (15:50)
[2023-06-07] MEDS ORDERED: ATROPINE SULFATE 0.1 MG/ML 10ML SYR IV PRN (15:50)
[2023-06-07] MEDS ORDERED: ONDANSETRON INJ 2 MG/ML 2 ML VIAL IV PRN (15:50)
[2023-06-07] MEDS ORDERED: ePHEDrine sulfate 50 MG/ML AMP IV PRN (15:50)
--- NOTE | 2023-06-07 15:52 | Anesthesiology Consultation ---
Date of Service June 07, 2023 Assessment & Plan Chart Review Chart Review: Acceptable Risk for Surgery and Patient NOT seen in Pre Admission Testing Consults Requested none ASA ASA3 Proposed Anesthesia Anesthesia Type: MAC Risk / Benefits Reviewed With: PT / POA / Parent / Guardian, Accepts Plan and Informed Consent Obtained History Surgery Operation Date: 06/07/23 09:20 Proposed Procedures p Cystoscopy Left Stent Placement - [place], DO Height/Weight Height: 5 ft 4 in Weight: 95.8 kg Allergies Allergy/AdvReac Type Severity Reaction Status Date / Time adhesive Allergy Mild Skin Verified 06/06/23 10:40 irritation doxycycline Allergy Mild Red skin, Verified 06/06/23 10:40 itchy estrogens, conjugated Allergy Mild Rash Verified 06/06/23 10:40 perfume Allergy Mild Sneezing Verified 06/06/23 10:40 pollen extracts Allergy Mild Sneezing Verified 06/06/23 10:40 Sulfa (Sulfonamide Allergy Mild Rash Verified 06/06/23 10:40 Antibiotics) Medications Home Medications Medication Instructions Recorded Confirmed Last Taken acetaminophen 325 mg tablet 325 mg PO Q6H PRN Pain 03/01/19 06/06/23 06/05/23 (Tylenol) cholecalciferol (vitamin D3) 25 25 mcg PO DAILY 11/13/21 06/06/23 06/05/23 mcg (1,000 unit) capsule amoxicillin 500 mg tablet 2,000 mg (4 x 500 mg) PO 12/28/22 06/06/23 Unknown DIRECTED PRN DENTAL PROCEDURE #4 tabs atorvastatin 10 mg tablet 10 mg PO HS #90 tabs 01/13/23 06/06/23 06/05/23 losartan 100 mg tablet 100 mg PO QAM #90 tabs 01/13/23 06/06/23 06/05/23 pantoprazole 40 mg tablet,delayed 40 mg PO DAILY #90 tabs 04/07/23 06/06/23 06/05/23 release venlafaxine 75 mg capsule,extended 75 mg PO QAM #90 caps 04/07/23 06/06/23 06/05/23 release 24 hr (Effexor XR) ipratropium bromide 42 mcg (0.06 2 spray intranasal .COMPLEX #15 mL 05/07/23 06/06/23 06/05/23 %) nasal spray donepezil 5 mg tablet 5 mg PO DAILY #30 tabs 05/27/23 06/06/23 06/05/23 levothyroxine 75 mcg tablet 75 mcg PO QAM 06/06/23 06/06/23 06/05/23 montelukast 10 mg tablet 10 mg PO HS 06/06/23 06/06/23 06/05/23 Active Medications Generic Name Dose Route Start Last Admin Trade Name Pema PRN Reason Stop Dose Admin Atorvastatin Calcium 10 mg 06/06/23 21:00 06/06/23 19:46 Atorvastatin 10 Mg Tab PO 07/06/23 20:59 10 mg HS JASMYNE Administration Donepezil HCl 5 mg 06/07/23 09:00 06/07/23 07:30 Donepezil Hcl 5 Mg Tab PO 07/07/23 08:59 5 mg DAILY JASMYNE Administration Parenteral Electrolytes 1,000 mls @ 100 mls/hr 06/06/23 20:30 06/07/23 14:41 Plasma-Lyte A Ph 7.4 IV 06/07/23 16:29 0 mls/hr .Q10H JASMYNE Infusion Lactated Ringer's 1,000 mls @ 15 mls/hr 06/07/23 15:30 06/07/23 15:37 Lr IV 07/07/23 15:29 15 mls/hr .Q24H JASMYNE Administration Levothyroxine Sodium 75 mcg 06/07/23 06:30 06/07/23 03:51 Levothyroxine Sodium 75 Mcg Tablet PO 07/07/23 06:29 75 mcg DAILYBB JASMYNE Administration Losartan Potassium 100 mg 06/07/23 09:00 06/07/23 07:30 Losartan Potassium 50 Mg Tab PO 07/07/23 08:59 100 mg QAM JASMYNE Administration Pantoprazole Sodium 40 mg 06/07/23 09:00 06/07/23 07:30 Pantoprazole 40 Mg Tab PO 07/07/23 08:59 40 mg DAILY JASMYNE Administration Venlafaxine HCl 75 mg 06/07/23 09:00 06/07/23 07:30 Venlafaxine Hcl Xr 75 Mg Capxr PO 07/07/23 08:59 75 mg QAM JASMYNE Administration NPO Date Last Intake of Fluids: 06/06/23 Time Last Intake of Fluids: 12:00 Date Last Intake of Solids: 06/05/23 Time Last Intake of Solids: 17:00 Past Medical History Medical History Hx of vertigo Kidney stone Right ureteral calculus Depression Hypertension Hyperlipidemia Asthma Stable Renal cyst History of herpes labialis Epidermal cyst Osteoarthritis Scoliosis H/O carcinoma in situ of skin s/p excision Hiatal hernia Osteoporosis DDD (degenerative disc disease), thoracolumbar GERD (gastroesophageal reflux disease) Controlled 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 Exercise / Class Metabolic Activity II 4-5 Yardwork/Stairs/Walk up hill Past Family History Family History Uncle Family history of diabetes mellitus Mother Asthma Cardiac disorder Hypertension Cancer Aunt Cancer Breast cancer Past Surgical History Surgical History History of esophagogastroduodenoscopy (EGD) History of lithotripsy Left ESWL (01/31/21): LMA#4, atraumatic at [facility] [place] H/O breast biopsy S/P correction of deviated nasal septum S/P wisdom tooth extraction History of cataract surgery R/L Fusion of spine Lumbar History of colonoscopy History of herniorrhaphy R/L inguinal History of tooth extraction Past Anesthesia History No Hx of Anesthesia Complications and No Family Hx of Anesthesia Complications History of PONV No Hx of PONV and No Hx of Motion Sickness Social History Smoking Status: Never smoker Do You Dip or Chew Tobacco: No Hx Alcohol Use: No Alcohol type: wine alcohol intake frequency: holidays/special occasions only Hx Substance Use: No substance use type: does not use Review of Systems ROS Unobtainable: All systems reviewed & are unremarkable except as noted in HPI & below Physical Exam Vital Signs Last Vital Signs Temp 37.3 C 06/07/23 15:00 Pulse 102 H 06/07/23 15:00 Resp 20 06/07/23 15:00 BP 105/65 06/07/23 15:00 Pulse Ox 94 06/07/23 15:00 O2 Del Method Room Air 06/07/23 15:00 Constitutional no acute distress ENMT Mouth: no TMJ abnormality Thyromental Distance: > or= 3.5 Finger Breadths Mallampati Class: II Neck normal visual inspection and trachea midline; neck extension not limited Respiratory normal respiratory effort Auscultation: lungs clear to auscultation bilaterally Cardiovascular Rate/Rhythm: regular rate and regular rhythm Heart Sounds: no murmur Musculoskeletal Spine: normal cervical ROM Extremities: full ROM of extremities Neurologic moves all extremities Psychiatric Orientation: alert and oriented x 3 Testing Laboratory Results 06/07/23 05:44 06/07/23 05:44 Urine Color [place] 06/06/23 11:30 Urine Appearance Turbid (Clear) A 06/06/23 11:30 Urine pH 5.5 (4.5-7.5) 06/06/23 11:30 Ur Specific Oneco 1.012 (1.000-1.030) 06/06/23 11:30 Urine Protein 2+ (Negative) H 06/06/23 11:30 Urine Glucose (UA) Negative (Negative) 06/06/23 11:30 Urine Ketones Negative (Negative) 06/06/23 11:30 Urine Nitrite Positive (Negative) A 06/06/23 11:30 Ur Leukocyte Esterase 1+ (Negative) H 06/06/23 11:30 Urine WBC (Auto) >30 /hpf (0-5) H 06/06/23 11:30 Urine RBC (Auto) >30 /hpf (0-4) H 06/06/23 11:30 U Hyaline Cast (Auto) 1-5 /lpf (0-5) 06/06/23 11:30 U Epithel Cells (Auto) 0-5 /lpf (0-5) 06/06/23 11:30 Urine Bacteria (Auto) Negative (Negative) 06/06/23 11:30 06/06/23 11:30 Urine Culture - Preliminary Urine,Clean Catch Gram negative bacilli Electrocardiogram Date: 03/13/21 Findings: + NSR @
[2023-06-07] MEDS ORDERED: PROPOFOL IV EMULSION 10 MG/ML 20 ML VIAL IV ONE (16:01)
[2023-06-07] MEDS ORDERED: fentaNYL citrate PF 100 MCG/2 ML VIAL ONE (16:02)
[2023-06-07] MEDS: cefTRIAXone SODIUM 2,000 MG in DEXTROSE 5 % MINI-B 50 ML IV SCH (16:05)
[2023-06-07] MEDS ORDERED: ONDANSETRON INJ 2 MG/ML 2 ML VIAL ONE (16:23)
[2023-06-07] MEDS ORDERED: DIATRIZOATE MEGLUMINE 30% 100ML VIAL INSTIL ONE (16:24)
--- NOTE | 2023-06-07 16:41 | Operative Report ---
PG Post Operative Report Pre & Post Diagnosis Operation Date: 06/07/23 09:20 Pre-Op Diagnosis: Calculus of left kidney hydronephrosis of left kidney, urinary tract infection Post-Op Diagnosis: Calculus of left kidney hydronephrosis of left kidney, urinary tract infection I identified the patient and participated in the time-out.: Yes Procedure Operation Date: 06/07/23 09:20 Actual Procedures p Cystoscopy, Left aspiration, left Retrograde Pyelogram, Left Stent Placement - [place] Oshea DO Surgeon Ranch[place] Oshea, II, DO Urgent Care Technician None Estimated Blood Loss 1 Findings Consistent with Post-Op Diagnosis Stent placed in good position. Dark urine from left ureter/renal pelvis. Inflammed tissue throughout bladder. Specimens Urine left renal Drains 6 Fr x 22 Anesthesia Type MAC Complications none Disposition Disposition: Recovery Room Indications Patient with obstruction. Risks and benefits discussed at length. Description of Procedure Patient was consented and brought back to the operating room. Patient was placed under anesthesia in the supine position and moved to the dorsal lithotomy position. Patient was prepped and draped in the regular sterile fashion. A time out was completed. A 30degree Cystoscope was placed into the bladder and the entire bladder was examined. The UO's were identified. Inflammation was noted throughout the bladder. The UO was cannulized with a catheter, urine was aspirated and sent for culture, and a retrograde pyelogram was completed. A wire was then placed. With the wire in place, a 6 Fr Double J stent was placed. It was confirmed with fluoroscopy. With the stent in place, the bladder was emptied. The scope was removed. The patient was cleaned, aroused from anesthesia, and transferred to the pacu in stable condition having tolerated the procedure well with no complications. I was present and participated in all aspects of the procedure. The patient will be monitored in the PACU until transferred. Will plan to monitor. Followup after infection to discuss options. I attest to the content of the Intraoperative Record and any orders documented therein. Any exceptions are noted below.
--- NOTE | 2023-06-07 16:57 | Fluoroscopy Report ---
FL retrograde includes kub CLINICAL HISTORY: Left ureteral stent placement. COMPARISON STUDY: None. FLUOROSCOPY TIME: 10 seconds FLUOROSCOPY IMAGES: 3 Ka,r: 4.4 mGy FINDINGS: Retrograde opacification of the left renal collecting system followed by placement of a lef t ureteral stent. The ureteral stent appears in good position. IMPRESSION: Fluoroscopic assistance as above. ACT 112: Negative or not required by law. Electronically signed by: Hector Mckeon M.D. 06/07/2023 4:56 PM
--- NOTE | 2023-06-07 17:08 | Anesthesiology Progress Note ---
Date of Service June 07, 2023 Anesthesia Post Procedure Vital Signs Vital Signs: Temp Pulse Pulse Pulse Resp BP Pulse Ox 06/07/23 17:02 100 H 06/07/23 16:55 96 H 16 140/87 95 06/07/23 16:45 36.6 C 98 H 22 136/86 99 06/07/23 15:00 37.3 C 102 H 20 105/65 94 06/07/23 11:35 37.0 C 87 18 156/48 H 94 06/07/23 07:45 36.7 C 92 H 18 144/80 H 94 06/07/23 03:01 36.6 C 84 18 144/66 H 94 06/06/23 23:04 36.6 C 86 18 142/68 H 95 06/06/23 22:00 90 06/06/23 19:33 36.6 C 81 16 98/61 L 93 O2 Del Method O2 Flow Rate 06/07/23 17:02 06/07/23 16:55 Room Air 06/07/23 16:45 Oxymask 4 06/07/23 15:00 Room Air 06/07/23 11:35 Room Air 06/07/23 07:45 Room Air 06/07/23 03:01 Room Air 06/06/23 23:04 Room Air 06/06/23 22:00 06/06/23 19:33 Room Air Transfer of Care Handoff Completed per policy Notes Mental Status: alert / awake / arousable Patient Amnestic to Procedure: Yes Nausea / Vomiting: adequately controlled Pain: adequately controlled Airway Patency, RR, SpO2: stable & adequate BP & HR: stable & adequate Hydration State: stable & adequate Anesthetic Complications: no major complications apparent and Pt Satisfied with anesthetic care
[2023-06-07] MEDS: ATORVASTATIN 10 MG TAB PO SCH (20:16)
[2023-06-08] MEDS: ACETAMINOPHEN 325 MG TAB PO PRN ×2 (03:46→10:39)
[2023-06-08] MEDS: LEVOTHYROXINE SODIUM 75 MCG TABLET PO SCH (06:01)
[2023-06-08 06:34] LABS: Basophils # (auto) 0.06 K/uL (0.00-0.20); Basophils % (auto) 0.6 %; Eosinophils # (auto) 0.26 K/uL (0.00-0.50); Eosinophils % (auto) 2.8 %; Hematocrit (blood only) 37.8 % (37.0-47.0); Hemoglobin 12.7 g/dl (12.0-16.0); Immature Granulocytes # (auto) 0.03 K/uL (0.01-0.20); Immature Granulocytes % (auto) 0.3 %; Lymphocytes # (auto) 1.27 K/uL (1.20-3.40); Lymphocytes % (auto) 13.7 %; Mean Corpuscular Hemoglobin 31.7 pg (25.0-34.0); Mean Corpuscular Hgb Conc 33.6 g/dL (32.0-36.0); Mean Corpuscular Volume 94.3 fL (80.0-100.0); Mean Platelet Volume 11.9 fL (9.4-12.4); Monocytes # (auto) 1.14 K/uL (0.11-0.59); Monocytes % (auto) 12.3 %; Neutrophils # (auto) 6.54 K/uL (1.40-6.50); Neutrophils % (auto) 70.3 %; Platelet Count 168 K/uL (130-400); RDW Coefficient of Variation 13.2 % (11.5-14.5); RDW Standard Deviation 45.9 fL (36.4-46.3); Red Blood Count 4.01 M/uL (4.20-5.40)
[2023-06-08 06:59] LABS: Albumin Globulin Ratio 1.5 (0.9-2); Albumin Level 3.4 gm/dl (3.4-5.0); Bilirubin,Total 0.7 mg/dl (0.2-1.0); Calcium 8.9 mg/dl (8.6-10.3); Creatinine Clr Calc Pharmacy 51.9 ml/min; Est GFR (African American) 65.1 ml/min; Est GFR (Non-African American) 56.2 ml/min; Globulin 2.3 gm/dl (2.5-4.0); Magnesium 2.3 mg/dl (1.7-2.4); Potassium 4.5 mmol/L (3.5-5.1); Total Protein 5.7 gm/dl (6.0-8.3)
--- NOTE | 2023-06-08 07:58 | Urology Progress Note ---
Date of Service June 08, 2023 Assessment & Plan (1) Calculus of left kidney: (2) Hydronephrosis of left kidney: (3) UTI (urinary tract infection): Plan: - Pt POD#1 s/p cystoscopy, left retrograde pyelogram and left ureteral stent placement - Doing well, progressing as expected - Afebrile, lab work reviewed - creatinine 0.95, WBC 9.3 - Urine culture grew out E. coli - Tolerating left ureteral stent with minimal bother - Okay to d/c from perspective when medically stable - Recommend d/c with appropriate course of PO antibiotics per UC&S - Recommend Tamsulosin, prn Pyridium and prn Oxybutynin for stent management - Discussed need for stone treatment after acute infection has resolved - Expected clinical course reviewed, all questions answered - Will arrange outpatient follow-up with our service to discuss definitive stone treatment Admission and Anticipated Discharge Date Admission Date: June 06, 2023 Subjective Patient seen and examined at bedside this morning, chart reviewed Patient resting in bed on arrival, arouses easily to her name She reports mild left flank discomfort Voiding spontaneously, notes some hematuria postprocedure Denies nausea, vomiting, fever or chills Review of Systems Constitutional: as per Subjective / HPI Gastrointestinal: as per Subjective / HPI Genitourinary: as per Subjective / HPI Physical Exam Constitutional: well developed and well nourished; no acute distress Respiratory: normal respiratory effort; no respiratory distress and no labored breathing Gastrointestinal (Abdomen): Inspection/Auscultation: abdomen normal to inspection Musculoskeletal: Head/Neck/Chest: normocephalic Neurologic: moves all extremities and awake Psychiatric: Orientation: alert and oriented x 3 Results & Data Vital Signs (Past 12 Hours) Vital Signs Temp Pulse Pulse Resp BP Pulse Ox O2 Del Method 06/08/23 07:55 36.4 C 87 16 138/77 92 Room Air 06/08/23 07:37 97 H 06/08/23 04:01 36.8 C 95 H 20 152/81 H 91 Room Air 06/08/23 00:42 36.7 C 98 H 20 144/66 H 92 Room Air 06/07/23 21:53 88 06/07/23 20:30 89 06/07/23 20:00 36.6 C 106 H 20 138/62 92 Room Air PG Care Time/CCT Total # of Minutes Spent Total Time Spent with Patient: Total time spent is greater than 50% in coordination of care (as documented) at patient's floor/unit and/or counseling patient: Coding Level of Care Code 96380 SUB INP/OBS CARE 07/15MIN Diagnoses Calculus of left kidney N20.0 Hydronephrosis of left kidney N13.30 UTI (urinary tract infection) N39.0
[2023-06-08] MEDS: DONEPEZIL HCL 5 MG TAB PO SCH (08:18)
[2023-06-08] MEDS: LOSARTAN POTASSIUM 50 MG TAB PO SCH (08:19)
[2023-06-08] MEDS: VENLAFAXINE HCL XR 75 MG CAPXR PO SCH (08:19)
[2023-06-08] MEDS: PANTOprazole 40 MG TAB PO SCH (08:19)
[2023-06-08] MEDS ORDERED: oxyBUTYnin chloride 5 MG TAB PO PRN (10:58)
[2023-06-08] MEDS: cefTRIAXone SODIUM 2,000 MG in DEXTROSE 5 % MINI-B 50 ML IV SCH (14:10)
--- NOTE | 2023-06-08 14:40 | Discharge Summary ---
Discharge Summary Date of Service June 08, 2023 Notes For Next Care Provider Will need urology follow up for stent and mcc stone management Medication Changes From Visit Augmentin 875mg BID x4 days to finish 7 day course of abx for UTI Flomax, Pyridium, and oxybutynin for stent management Admission HPI Per Admitting Provider Renate is an 82 year old female with a PMH significant for dementia, previous kidney stones, hypothyroidism, and HTN who presented to the [facility] ED on 06/06 with her for acute onset of left flank pain this am around 0430. She was initially tachycardic with HR in the low 100's on arrival but otherwise stable. Labs were significant for stable renal function, potassium of 3.4, total bili of 1.5 with other LFT's WNL, UA suggestive of UTI. CT of the abd/pelvis wo con was read as "1. There is mild left-sided hydronephrosis, with associated left-sided perinephric stranding and fluid. The left ureter is normal in caliber, with no ureteral stone identified. 2. There is a 9 mm calculus in the left renal pelvis. These findings may be related to a recently passed kidney stone, or could represent intermittent obstruction from the calculus in the renal pelvis. 3. There are numerous additional nonobstructing left renal calculi. A single punctate stone is seen in the right kidney. 4. Cholelithiasis. 5. Colonic diverticulosis without CT evidence of acute diverticulitis.". The ED spoke with Urology who reviewed the images. They do not believe that she has a current obstructing/infection stone but may be having intermittent obstruction with the large stone in the left renal pelvis. They recommended admission with IV antibiotics for now and they will continue to follow. If need they can place a stent prior to discharge. Prior to admission the patient was given 1gm IV tylenol, 15 mg IV toradol, a dose of ceftriaxone, and 1L NSS. At the time of the exam the patient was sitting in bed in no acute distress with her sitting bedside; history was obtained from the patient's due to her baseline mental status. He states that the patient was treated for a UTI last month. Per review of records, she was treated with a course of Augmentin for E.coli UTI. The sensitivities do show the e.coli being susceptible to Augmentin. This am the patient woke with acute onset of left sided flank pain which continued for multiple hours prompting ED evaluation. The patient's denies the patient having a recent fever, her appetite has been good. She states that her pain is currently under control. She is unsure if she has been experiencing urinary symptoms recently. She denies chest pain, SOB, abd pain, nausea, vomiting, diarrhea, melena, and recent trauma. She is a full code and her makes medical decisions for her due to dementia. Please refer to Dr. Contreras's attestation for any changes to the treatment plan Principal Dx & Hospital Course #1 = Principal Diagnosis (1) Hydronephrosis of left kidney: -CT A/P: Multiple left renal stones with a 9 mm calculus in the left renal pelvis but without acute obstruction -Urology consulted, appreciate recs - 06/07 for cystoscopy, retrograde pyelogram and left ureteral stent placement with Dr. Oshea - Tamsulosin, prn Pydrium and prn Oxybutyin for stent management - Follow up with urology outpatient for stent management and mcc stone treatment -PRN Tylenol for pain (2) UTI (urinary tract infection): -Patient is a poor historian so difficult to tell if she has been symptomatic, was treated with Augmentin for UTI in April. Has only grown E.coli in the past -UC: E.coli, sensitive to Augmentin - Received 3 doses of ceftriaxone while inpatient - Discharge with Augmentin 875mg BID x4 days, starting AM of 06/09 (3) Hypokalemia: Resolved (4) Calculus of left kidney: -See left hydronephrosis (5) Mild dementia: -Continue Donepezil (6) Hypothyroidism (acquired): -Continue levothyroxine TSH normal in 04/2023 (7) Hypertension: -Continue Losartan (8) Asthma: -Stable on RA -Continue home breathing treatments Plan Dispo: discharge to home with Discharge Exam General: WN/WD, NAD, VS as above Resp: normal respiratory effort, lungs clear to auscultation CV: RRR, no murmur, Abd: normal bowel sounds, non tender, no hepatosplenomegaly Back: pain not worsened by palpation : de la cruz in place during exam, removed and patient able to spontaneously void prior to discharge Updated Medication List Medication Instructions Recorded Confirmed Type acetaminophen 325 mg tablet 325 mg PO Q6H PRN Pain 03/01/19 06/06/23 History (Tylenol) cholecalciferol (vitamin D3) 25 25 mcg PO DAILY 11/13/21 06/06/23 History mcg (1,000 unit) capsule amoxicillin 500 mg tablet 2,000 mg (4 x 500 mg) PO 12/28/22 06/06/23 Rx DIRECTED PRN DENTAL PROCEDURE #4 tabs atorvastatin 10 mg tablet 10 mg PO HS #90 tabs 01/13/23 06/06/23 Rx losartan 100 mg tablet 100 mg PO QAM #90 tabs 01/13/23 06/06/23 Rx pantoprazole 40 mg tablet,delayed 40 mg PO DAILY #90 tabs 04/07/23 06/06/23 Rx release venlafaxine 75 mg capsule,extended 75 mg PO QAM #90 caps 04/07/23 06/06/23 Rx release 24 hr (Effexor XR) ipratropium bromide 42 mcg (0.06 2 spray intranasal .COMPLEX #15 mL 05/07/23 06/06/23 Rx %) nasal spray donepezil 5 mg tablet 5 mg PO DAILY #30 tabs 05/27/23 06/06/23 Rx levothyroxine 75 mcg tablet 75 mcg PO QAM 06/06/23 06/06/23 History montelukast 10 mg tablet 10 mg PO HS 06/06/23 06/06/23 History amoxicillin 875 mg-potassium 1 tab PO BID 4 days #8 tabs 06/08/23 Rx clavulanate 125 mg tablet oxybutynin chloride 5 mg tablet 5 mg PO BID PRN Pain 10 days #20 06/08/23 Rx tabs phenazopyridine 100 mg tablet 100 mg PO BID PRN pain 6 doses #6 06/08/23 Rx (Pyridium) tabs tamsulosin 0.4 mg capsule (Flomax) 0.4 mg PO DAILY #10 caps 06/08/23 Rx Hospital Stay Data Consultations 06/06/23 12:54 ED Decision to Admit Stat 06/06/23 13:30 Consult Urology Routine Procedures Performed Operation Date: 06/07/23 09:20 Actual Procedures p Cystoscopy, Retrograde Pyelogram, Left Stent Placement - [place], Diagnostic Imagining Performed 06/06/23 08:03 CT abd pelvis wo con Stat 06/07/23 [place] retrograde includes kub Routine Pending Results Patient Have Any Pending Studies at Discharge: Yes (OR culture ) Discharge Instructions Given to Patient (Per Discharging Provider) Ms. Dewitt, Karan were hospitalized after having severe left back pain. It was noted that you had multiple kidney stones, and a urinary tract infection. You underwent a left stent placement with Dr. Oshea, the stent remains in place and will have to be followed up outpatient for removal. While the stent is in place, this can be irritating as discussed. You can use the following things to help with any pain that you may have: - Tylenol 325 every 6 hours as needed - oxybutynin 5 mg twice a day as need for stent pain - Pyridium - twice daily for up to 3 days as needed for pain with urination - Tamsulosin - once daily to help with passing stones. This can cause a decrease in blood pressure. Do not take if you are light headed or dizzy. Continue to strain urine as you are able to. You were also noted to have a UTI. You were given three days of antibiotics while you were admitted. You will continue Augmentin 875mg BID x4 days. Start this AM of 06/09. Otherwise no changes were made to your home medications. If you have any new or worsening symptoms. Develop fevers or uncontrolled flank pain, contact the urologist, PCP or return back to the ER. It was our pleasure taking care of you, Caitlyn Yeh PA-C Total Time Total Time Spent Total Time Spent (In Minutes): 40 Supervising Physician Co-Signing Physician Notes PA Supervision Note: I personally saw and examined the patient. I verified all sethi points and agree with HERIBERTO Yeh with the following exceptions and/or additions: S-patient feeling much better, having minimal pain after taking oxybutynin. Is voiding after [place] catheter was removed Denies chest pain or shortness of breath. Feels ready to go home. No nausea and is tolerating p.o. O- Vitals reviewed Gen: AAOx3, NAD HEENT: Anicteric sclerae, EOMI CV: RRR no mgr nl S1S2 Pulm: CTAB no wcr Abd: +BS soft NT ND no masses or hernias Ext: No edema Skin: No rashes, warm/dry Neuro: Full strength throughout A/[id number]-old female here with ureterolithiasis and UTI Now status post stent placement in the ureter and treatment with antibiotics Stable for discharged home with Augmentin to finish out 7-day course and close follow-up with urology for stent removal. Coding Level of Care Code 43795 INP/OBS DISCH >30 MIN Diagnoses Hydronephrosis of left kidney N13.30 UTI (urinary tract infection) N39.0 Hypokalemia E87.6 Calculus of left kidney N20.0 Mild dementia F03.A0 Dementia behavioral or psychological symptom: with mood disturbance Hypothyroidism (acquired) E03.9 Hypertension I10 Asthma J45.909
== END 2023-06-08 15:37 | disposition home or self-care (01) | DRG 661 ==
LOC: ED 07:36 → SUATTDRO 13:03 → 2N 13:03